=== PATIENT | female | born 1980 | race Two or more races ===

== ENCOUNTER 2016-09-27 13:52 | Emergency (ER) | payer OTHER ==
[~2016-09-27] VITALS: Ht 172.7 cm; Wt 95.3 kg
[~2016-09-27 13:52] MED LIST: DIAZ5TAB PO; ESCI10TA PO; GABA-585 PO; MECL25TA3 PO; METH4TAB2 PO; NAPR500T PO; PANT40TA5 PO; PENI500T PO; TIZA4TAB PO; TRAM-29 PO
[2016-09-27 14:53] LABS: BASO # 0.1 x10^3/uL (0.0-0.2); BASO % 1 % (0-3); EOS % 1 % (0-3); HEMATOCRIT 38.4 % (36.0-47.0); HEMOGLOBIN 12.8 g/dL (12.0-15.5); LYMPH # 2.8 x10^3/uL (1.0-4.8); LYMPH % 31 % (24-48); MEAN CORPUSCULAR HEMOGLOBIN 28 pg (25-35); MEAN CORPUSCULAR HGB CONC 33 g/dL (31-37); MEAN CORPUSCULAR VOLUME 85 fL (79-100); MONO % 7 % (0-9); NEUT % 61 % (31-73); PLATELET COUNT 345 x10^3/uL (140-400); RED BLOOD COUNT 4.51 x10^6/uL (3.50-5.40); RED CELL DISTRIBUTION WIDTH 14.3 % (11.5-14.5); WHITE BLOOD COUNT 9.1 x10^3/uL (4.0-11.0)
[2016-09-27 14:56] LABS: BILIRUBIN,URINE NEGATIVE (NEG); GLUCOSE,URINE NEGATIVE (NEG); NITRITE,URINE NEGATIVE (NEG); PROTEIN,URINE NEGATIVE (NEG-TRACE)
[2016-09-27 15:05] LABS: BACTERIA,URINE MANY /HPF (0-FEW); RBC,URINE 0 /HPF (0-2); SQUAMOUS EPITHELIAL CELL,UR MANY /LPF; WBC,URINE OCC /HPF (0-4)
[2016-09-27 15:18] LABS: ANION GAP 9 (6-14); BLOOD UREA NITROGEN 10 mg/dL (7-20); CARBON DIOXIDE 30 mmol/L (21-32); CHLORIDE 103 mmol/L (98-107); GFR 63.1; GLUCOSE 92 mg/dL (70-99); POTASSIUM 3.8 mmol/L (3.5-5.1); SODIUM 142 mmol/L (136-145)
[2016-09-27 15:24] LABS: ALBUMIN 3.3 g/dL (3.4-5.0); ALK PHOS 64 U/L (46-116); ALT (SGPT) 23 U/L (14-59); AST (SGOT) 18 U/L (15-37); DIRECT BILIRUBIN < 0.1 mg/dL (0.0-0.2); TOTAL BILIRUBIN 0.2 mg/dL (0.2-1.0); TOTAL PROTEIN 7.7 g/dL (6.4-8.2)
[2016-09-27] MEDS ORDERED: IV NORMAL SALINE 1000ML BAG 1,000 ML IV ONE (16:00)
[2016-09-27] MEDS ORDERED: KETOROLAC TROMETHAMINE 30 MG/ML INJ. IV ONE (16:15)
--- NOTE | 2016-09-27 16:49 | RAD ---
EXAM: Abdomen and pelvis CT without intravenous contrast. HISTORY: Right flank pain. TECHNIQUE: Computed tomographic images of the abdomen and pelvis were obtained without contrast. Multiplanar reformatting was performed. COMPARISON: 05/05/2016. FINDINGS: Evaluation of the lower thorax is unremarkable. No hepatic lesion is seen. The gallbladder is surgically absent. The pancreas, spleen and adrenal glands are unremarkable. There is no evidence of nephrolithiasis or obstructive uropathy. The bladder is unremarkable. The appendix is unremarkable. No abnormally thickened or dilated loop of bowel is seen. The uterus is surgically absent. There is a 4.8 cm right ovarian cyst. There are bilateral ovarian follicles. There is a trace amount of pelvic free fluid. There is a small fat-containing supraumbilical hernia. There are degenerative changes within the spine. IMPRESSION: 1. No evidence of nephrolithiasis or obstructive uropathy. 2. 4.8 cm right ovarian cyst. PQRS Compliance Statement: One or more of the following individualized dose reduction techniques were utilized for this examination: 1. Automated exposure control 2. Adjustment of the mA and/or kV according to patient size 3. Use of iterative reconstruction technique
--- NOTE | 2016-09-27 17:07 | PHYS DOC ---
Past Medical History Past Medical History: Anxiety, Depression, Other Additional Past Medical Histor: fibroids Past Surgical History: Cholecystectomy, , Hysterectomy, Tubal ligation Additional Past Surgical Histo: D&C Alcohol Use: None Drug Use: None Adult General Chief Complaint Chief Complaint: ABDOMINAL PAIN HPI HPI 36-year-old female presents with a several week history of right lower quadrant pain that radiates to her back. She denies any vaginal bleeding or discharge. She denies dyspareunia. She states her last couple days she's feels like the pain in her abdomen radiates to her leg. She denies any fever chills sweats nausea vomiting or diarrhea. She has not had any rectal bleeding. Review of Systems Review of Systems Constitutional: Denies fever or chills [] Eyes: Denies change in visual acuity, redness, or eye pain [] HENT: Denies nasal congestion or sore throat [] Respiratory: Denies cough or shortness of breath [] Cardiovascular: No additional information not addressed in HPI [] GI: Per history of present illness [] : Denies dysuria or hematuria [] Musculoskeletal: Denies back pain or joint pain [] Integument: Denies rash or skin lesions [] Neurologic: Denies headache, focal weakness or sensory changes [] Endocrine: Denies polyuria or polydipsia [] Current Medications Current Medications Current Medications Medications (Trade) Dose Ordered Sig/Bernie Start Time Stop Time Status Last Admin Dose Admin Ketorolac Tromethamine (Toradol) 30 mg 1X ONCE 09/27/16 16:15 09/27/16 16:16 DC 09/27/16 16:30 30 MG Sodium Chloride (Iv Sodium Chloride 0.9% 1000ml Bag) 1,000 ml @ 1,000 mls/hr 1X ONCE 09/27/16 16:00 09/27/16 16:59 DC 09/27/16 16:30 1,000 MLS/HR Allergies Allergies Allergies Coded Allergies Type Severity Reaction Last Updated Verified latex Allergy Intermediate Rash 07/05/14 Yes Physical Exam Physical Exam Constitutional: Well developed, well nourished, no acute distress, non-toxic appearance. [] HENT: Normocephalic, atraumatic, bilateral external ears normal, oropharynx moist, no oral exudates, nose normal. [] Eyes: PERRLA, EOMI, conjunctiva normal, no discharge. [] Neck: Normal range of motion, no tenderness, supple, no stridor. [] Cardiovascular:Heart rate regular rhythm, no murmur [] Lungs & Thorax: Bilateral breath sounds clear to auscultation [] Abdomen: Bowel sounds normal, soft, no tenderness, no masses, no pulsatile masses negative McBurney's, negative Cowan's. [] Skin: Warm, dry, no erythema, no rash. [] Back: No tenderness, no CVA tenderness. [] Extremities: No tenderness, no cyanosis, no clubbing, ROM intact, no edema. [] Neurologic: Alert and oriented X 3, normal motor function, normal sensory function, no focal deficits noted. [] Psychologic: Anxious] Current Patient Data Vital Signs Vital Signs Date Time Temp Pulse Resp B/P Pulse Ox O2 Delivery O2 Flow Rate FiO2 09/27/16 16:33 76 105/56 99 Room Air 09/27/16 13:59 98.7 16 98.7 Lab Values Laboratory Tests Test 09/27/16 14:10 09/27/16 14:40 Urine Collection Type Void Urine Color Yellow Urine Clarity Clear Urine pH 6.0 Urine Specific Grady 1.025 Urine Protein Negativemg/dL (NEG-TRACE) Urine Glucose (UA) Negativemg/dL (NEG) Urine Ketones (Stick) Negativemg/dL (NEG) Urine Blood Negative (NEG) Urine Nitrite Negative (NEG) Urine Bilirubin Negative (NEG) Urine Urobilinogen Dipstick 1.0mg/dL (0.2 mg/dL) Urine Leukocyte Esterase Negative (NEG) Urine RBC 0/HPF (0-2) Urine WBC Occ/HPF (0-4) Urine Squamous Epithelial Cells Many/LPF Urine Bacteria Many/HPF (0-FEW) Urine Mucus Marked/LPF White Blood Count 9.1x10^3/uL (4.0-11.0) Red Blood Count 4.51x10^6/uL (3.50-5.40) Hemoglobin 12.8g/dL (12.0-15.5) Hematocrit 38.4% (36.0-47.0) Mean Corpuscular Volume 85fL (79-100) Mean Corpuscular Hemoglobin 28pg (25-35) Mean Corpuscular Hemoglobin Concent 33g/dL (31-37) Red Cell Distribution Width 14.3% (11.5-14.5) Platelet Count 345x10^3/uL (140-400) Neutrophils (%) (Auto) 61% (31-73) Lymphocytes (%) (Auto) 31% (24-48) Monocytes (%) (Auto) 7% (0-9) Eosinophils (%) (Auto) 1% (0-3) Basophils (%) (Auto) 1% (0-3) Neutrophils # (Auto) 5.5x10^3uL (1.8-7.7) Lymphocytes # (Auto) 2.8x10^3/uL (1.0-4.8) Monocytes # (Auto) 0.6x10^3/uL (0.0-1.1) Eosinophils # (Auto) 0.1x10^3/uL (0.0-0.7) Basophils # (Auto) 0.1x10^3/uL (0.0-0.2) Sodium Level 142mmol/L (136-145) Potassium Level 3.8mmol/L (3.5-5.1) Chloride Level 103mmol/L (98-107) Carbon Dioxide Level 30mmol/L (21-32) Anion Gap 9 (6-14) Blood Urea Nitrogen 10mg/dL (7-20) Creatinine 1.0mg/dL (0.6-1.0) Estimated GFR (Cockcroft-Gault) 63.1 Glucose Level 92mg/dL (70-99) Calcium Level 9.0mg/dL (8.5-10.1) Total Bilirubin 0.2mg/dL (0.2-1.0) Direct Bilirubin < 0.1mg/dL (0.0-0.2) Aspartate Amino Transferase (AST) 18U/L (15-37) Alanine Aminotransferase (ALT) 23U/L (14-59) Alkaline Phosphatase 64U/L (46-116) Troponin I Quantitative < 0.017ng/mL (0.000-0.055) Total Protein 7.7g/dL (6.4-8.2) Albumin 3.3g/dL (3.4-5.0) L Lipase 76U/L (73-393) Laboratory Tests 09/27/16 14:40 Laboratory Tests 09/27/16 14:40 EKG EKG [] Radiology/Procedures Radiology/Procedures [] Impressions: PROCEDURE: ABDOMEN PELVIS WO CONTRAST EXAM: Abdomen and pelvis CT without intravenous contrast. HISTORY: Right flank pain. TECHNIQUE: Computed tomographic images of the abdomen and pelvis were obtained without contrast. Multiplanar reformatting was performed. COMPARISON: 05/05/2016. FINDINGS: Evaluation of the lower thorax is unremarkable. No hepatic lesion is seen. The gallbladder is surgically absent. The pancreas, spleen and adrenal glands are unremarkable. There is no evidence of nephrolithiasis or obstructive uropathy. The bladder is unremarkable. The appendix is unremarkable. No abnormally thickened or dilated loop of bowel is seen. The uterus is surgically absent. There is a 4.8 cm right ovarian cyst. There are bilateral ovarian follicles. There is a trace amount of pelvic free fluid. There is a small fat-containing supraumbilical hernia. There are degenerative changes within the spine. IMPRESSION: 1. No evidence of nephrolithiasis or obstructive uropathy. 2. 4.8 cm right ovarian cyst. Course & Med Decision Making Course & Med Decision Making Pertinent Labs and Imaging studies reviewed. (See chart for details) [ED course: Evaluation reveals a 36-year-old female with colicky right lower quadrant pain. CT scan was performed to rule out kidney stone. There was no kidney stone or ureteral stones seen but she did have an ovarian cyst which would likely be the cause of her symptoms. She was given IV fluids and pain medicine during her stay in the department which did help alleviate her symptoms. I discussed with her that the best follow-up is for her to see a hose operator. Dragon Disclaimer Dragon Disclaimer This electronic medical record was generated, in whole or in part, using a voice recognition dictation system. Departure Departure Impression: Primary Impression: Abdominal pain Additional Impression: Ovarian cyst Disposition: HOME, SELF-CARE Condition: IMPROVED Referrals: BEATRIZ FARRIS MD (PCP) WILFRED CASTELLANO MD Called Dr. Castellano's office to make a follow-up appointment in regards to your ovarian cyst Patient Instructions: Ovarian Cyst Additional Instructions: Thank you for allowing us to participate in your care today. Followup with your primary care physician in 3 days if your symptoms do not improve. Return to the emergency department you have any new or concerning findings. This should be evaluated by the primary care physician and any necessary consulting services for continued management within a few days after discharge. Return to emergency room if you have any new or concerning symptoms including but not limited to fever, chills, nausea, vomiting, intractable pain, any new rashes, chest pain, shortness of air, uncontrolled bleeding, difficulty breathing, and/or vision loss. You may have been prescribed medication that can change in your level of thinking and ability to operate machinery. These medications include hydrocodone and Ativan. Also, Benadryl has been known to do this as well. Be sure to check with your pharmacist and ask if the medications you've prescribed can affect your level of consciousness. I recommend not operating heavy machinery or driving while on medication such as these. Scripts Hydrocodone/Apap 5-325 ([place] 5-325 Tablet)1 Each Tablet1 Tab PO PRN Q6HRS PRN PAIN #20 TAB Prov:BASIA HUDDLESTON DO 09/27/16 Problem Qualifiers Primary Impression: Abdominal pain Abdominal location: right lower quadrant Qualified Code: R10.31 - Right lower quadrant pain Additional Impression: Ovarian cyst Laterality: right Qualified Code: N83.201 - Unspecified ovarian cyst, right side BASIA HUDDLESTON DO Sep 27, 2016 17:07
[2016-09-27] MEDS ORDERED: HYDR-971 PO (17:14)
[2016-09-27 17:22] VITALS: BP 111/64
== END 2016-09-27 17:24 | disposition home or self-care (01) ==
LOC: ER 13:52
DX: N83.201 Unspecified ovarian cyst, right side (principal); R10.31 Right lower quadrant pain; Z90.710 Acquired absence of both cervix and uterus; Z90.49 Acquired absence of other specified parts of digestive tract; Z98.51 Tubal ligation status; Z98.890 Other specified postprocedural states; Z87.19 Personal history of other diseases of the digestive system; Z91.040 Latex allergy status
CPT/HCPCS: 36415; 74176; 80048; 80076; 81001; 83690; 84484; 85027; 87086; 96361; 96374; 99285; J1885; J7030

== ENCOUNTER 2016-11-05 01:12 | Inpatient (IN) | payer OTHER ==
[~2016-11-05] VITALS: Ht 172.7 cm; Wt 95.3 kg
[~2016-11-05 01:12] MED LIST changes: +HYDR-971 PO
[2016-11-05] MEDS ORDERED: ACETAMINOPHEN 325 MG TABLET. PO PRN (03:00)
[2016-11-05] MEDS ORDERED: ONDANSETRON PF 4 MG/2 ML VIAL. IV PRN (03:00)
[2016-11-05 03:25] VITALS: BP 105/40
[2016-11-05] MEDS ORDERED: IV NORMAL SALINE 1000ML BAG 1,000 ML IV SCH (04:30)
[2016-11-05] MEDS: fentaNYL PF VIAL 100 MCG/2 ML VIAL IV PRN ×3 (04:57→11:34)
[2016-11-05] MEDS ORDERED: PIP/TAZO PER PHARMACY MC PRN (05:00)
[2016-11-05] MEDS: PIPERACILLIN/TAZOBACTAM 3.375 GM in IV NORMAL SALINE 50ML 50 ML IV SCH ×2 (06:23→09:54)
[2016-11-05 07:30] VITALS: BP 105/56
--- NOTE | 2016-11-05 08:58 | PDOC1 ---
REI GILMAN CRAFT SUPERINTENDENT 11/05/16 0858: HISTORY AND PHYSICAL Chief Complaint Chief Complaint This 36 year old female has been admitted with a chief complaint of R lower jaw/tooth pain. She was seen in the ED at [facility] with c /o chills, sweats, R jaw pain worsening over last 2 days, and n/v. She has a h/ o R tooth pain onset 2 years ago. The tooth broke off at the gum line and she has been treated periodically for infected tooth. She did not have dental/ medical insurance and could not obtain treatment due to finances. She also reports R lower leg pain starting with R hip radiating down leg. She fell at a job in Aug, quit the job and has noted R hip pain radiating down the leg. A CT of her R mandible in ED at [place] was positive for osteomyelitis amn caries of the 3rd molar. The tooth is fractured and only the lower part of the tooth is present. It is flush with the gum line. BC were obtained. T97.9 and WBC 8.9. She was dosed with Vancomycin and Zosyn with transfer to [facility] for ongoing treatment. . Past Medical History CENTRAL NERVOUS SYSTEM: Other Psych: Anxiety Musculoskeletal: Other Past Surgical History Past Surgical History: Cholecystectomy, , Hysterectomy, Other (D&C ) Past Family History Family History: Coronary Artery Disease, Diabetes, Hypertension, Other (CHF) Past Social History PSH neg ETOH, smoke or illicit drugs Review of Symptoms Review of Symptoms A 14 point ROS was completed with the following noted as positive: R jaw pain, n /v, chills. R hip pain radiating down R leg Other systems reviewed and negative. Medications Medications reviewed and reconciled Allergy Allergies Coded Allergies Type Severity Reaction Last Updated Verified hydrocodone Allergy Intermediate Itching 11/05/16 Yes latex Allergy Intermediate Rash 07/05/14 Yes morphine Adverse Reaction Severe Chest Pain 11/05/16 Yes Physical Exam Physical Exam General appearance - alert, ill appearing, and in mild distress Mental Status - alert, oriented to person, place, and time, affect appropriate to mood Head - normal Mouth - R gum swollen, molar fractured to gum line, + dental caries Chest - clear to auscultation, no wheezes, rales or rhonchi, symmetric air entry Heart - S1 and S2 normal Abdomen - soft, nontender, nondistended, BS+ Neurological - no acute focal neurological deficit noted Musculoskeletal - no muscular tenderness noted. R hip tenderness Extremities - no pedal edema Skin - warm and dry VTE Prophylaxis Ordered VTE Prophylaxis Devices: Yes VTE Pharmacological Prophylaxi: No Plan Plan Impression: 1. osteomyelitis R mandible with 3rd molar dental caries 2. R hip pain radiating down leg 3. anxiety 4. CKD II 5. hypokalemia PLAN: R mandibular osteomyelitis Zosyn/vanc ID consult check sed rate R hip pain obtain LS xray/R hip xray pain medication DVT/GI prophylaxis SCD/ASHA Pepcid IV For more details regarding further plans, please refer to the orders. No ENT available here. Dr. Davis ENT at [facility] (in network). Anticipate transfer with d/c orders/meds initiated. Dr. Farris will need to contact [facility] [phone] for ok to transfer. BEATRIZ FARRIS MD 11/05/16 1018: HISTORY AND PHYSICAL Plan Plan The patient was seen and examined by me. Chart reviewed and plan of care formulated. Discussed with, reviewed and agree with TURNING MACHINE SET UP OPERATOR's notes, plan of care and orders with modifications as necessary. For more details regarding further plans, please refer to the orders. D/w . Oral surgeons available here.No need to transfer patient. Consult . REI GILMAN APRN November 05, 2016 08:58 BEATRIZ FARRIS MD November 05, 2016 10:18
--- NOTE | 2016-11-05 09:14 | DISCH ---
DISCHARGE INSTRUCTIONS Condition on Discharge Condition on Discharge: Stable Activity After Discharge Activity Instructions for Disc: Activity as tolerated Diet after Discharge Diet Texture: Nothing by Mouth Checks after Discharge DC Comment: VS per routine Follow-Up Follow up with: Dr. Estes 3-5 days after discharge from hospital REI GILMAN APRN November 05, 2016 09:14
[2016-11-05] MEDS ORDERED: ACETAMINOPHEN 650 MG/20.3 ML SOLUTION. PO PRN (09:15)
--- NOTE | 2016-11-05 09:59 | PDOC ---
Infectious Disease Note Vital Sign Vital Signs Vital Signs Date Time Temp Pulse Resp B/P (MAP) Pulse Ox O2 Delivery O2 Flow Rate FiO2 11/05/16 07:44 14 Room Air 11/05/16 07:30 97.9 66 105/56 (72) 95 97.9 Objective Assessment Rt molar infection with mandibular osteomyelitis Plan Plan of Care unasyn maxillo facial surgery d/w PRICILA Max MD November 05, 2016 09:59
[2016-11-05] MEDS ORDERED: FAMOTIDINE 20 MG/2 ML VIAL IVP SCH (10:00)
[2016-11-05 10:11] LABS: BASO % 1 % (0-3); EOS % 1 % (0-3); HEMATOCRIT 35.1 % (36.0-47.0); HEMOGLOBIN 11.8 g/dL (12.0-15.5); LYMPH # 1.4 x10^3/uL (1.0-4.8); LYMPH % 29 % (24-48); MEAN CORPUSCULAR HEMOGLOBIN 29 pg (25-35); MEAN CORPUSCULAR HGB CONC 34 g/dL (31-37); MEAN CORPUSCULAR VOLUME 86 fL (79-100); MONO % 6 % (0-9); NEUT % 64 % (31-73); PLATELET COUNT 284 x10^3/uL (140-400); RED CELL DISTRIBUTION WIDTH 15.2 % (11.5-14.5); WHITE BLOOD COUNT 4.7 x10^3/uL (4.0-11.0)
[2016-11-05 10:32] LABS: ALBUMIN 2.7 g/dL (3.4-5.0); ALBUMIN/GLOBULIN RATIO 0.8 (1.0-1.7); CALCIUM 7.8 mg/dL (8.5-10.1); CREATININE 0.9 mg/dL (0.6-1.0); GFR 71.3; POTASSIUM 3.7 mmol/L (3.5-5.1); TOTAL BILIRUBIN 0.6 mg/dL (0.2-1.0); TOTAL PROTEIN 6.3 g/dL (6.4-8.2)
[2016-11-05 11:00] VITALS: BP 117/68
[2016-11-05] MEDS ORDERED: AMPICILLIN/SULBACTAM 3 GM in IV NORMAL SALINE 100ML 100 ML IV SCH (11:00)
[2016-11-05] MEDS ORDERED: ACET500T68 PO (11:45)
--- NOTE | 2016-11-05 12:50 | CONS ---
DATE OF CONSULTATION: 11/05/2016 REASON FOR CONSULTATION: To evaluate osteomyelitis of the jaw. CHIEF COMPLAINT: Toothache lower right that has been like pain off and on for four years, got really bad two days ago and was seen at [facility] and transferred to [facility]. The evaluation shows gross decay of tooth #32 and #19. There is no gross edema. Maximal size of opening was about 45 mm, which was normal. No floor of mouth edema. Uvula; midline. Trachea; midline. No gross signs of infection. ASSESSMENT AND PLAN: Gross decay questionable osteomyelitis of the right jaw, per a CT scan radiologist. The patient will follow up to office on Tuesday11/08/2016 for IV sedation and removal of tooth #32 also for evaluation of the osteomyelitis per radiologist. SHEILA ALDRIDGE DDS DR: FRANCESCO/anthony JOB#: [id number] / [id number]
--- NOTE | 2016-11-06 00:47 | CONS ---
DATE OF CONSULTATION: 11/05/2016 REQUESTING PHYSICIAN: Dr. Estes. REASON FOR CONSULTATION: Mandibular osteomyelitis. HISTORY OF PRESENT ILLNESS: This is a 36-year-old female, who was admitted to [place] and then transferred here for jaw pain. The patient says this started 2 days ago. The patient denied any fever, chills, nausea, vomiting or diarrhea. The patient has had off and on pain for a long time. ____ every time it would get better, hence she has not seen any dentist or any treatment. The patient had a CAT scan of the maxillofacial done which showed 3 cm radiolucent lesion of posterior right side of the mandible including the ____ consistent with osteomyelitis and with the dental carries of the lower right third molar. The patient is started on Zosyn and consult has been requested. The patient denies any chest pain, shortness of breath, abdominal pain, headache, visual symptoms, nausea, vomiting, diarrhea or urinary symptoms. PAST MEDICAL HISTORY: Essentially no ongoing medical problems. PAST SURGICAL HISTORY: The patient has had cholecystectomy, and hysterectomy done in the past. SOCIAL HISTORY: Negative for smoking, alcohol use or drug use. ALLERGIES: LISTED ALLERGIC TO HYDROCODONE AND MORPHINE. REVIEW OF SYSTEMS: As per HPI, all other systems reviewed are negative. CURRENT MEDICATIONS: Reviewed. The patient is on Zosyn. PHYSICAL EXAMINATION: GENERAL: Alert, oriented female, not in distress. VITAL SIGNS: Stable, afebrile. HEENT: NAD. NECK: Supple, no JVP, no lymphadenopathy. LUNGS: Clear. HEART: S1, S2 regular. ABDOMEN: Benign. EXTREMITIES: No edema, cyanosis. SKIN: Unremarkable. Mouth examination, the right third molar has dental caries, it appears to be almost destroyed. There is no mandibular swelling or tenderness palpable. NEUROLOGIC: The patient is neurologically intact. LABORATORY DATA: White count is normal. BUN and creatinine is normal. Liver functions are normal. Urinalysis unremarkable. Evidently blood culture was done at [place] that will follow. IMPRESSION: 1. Right third molar dental caries. 2. Mandibular osteomyelitis. RECOMMENDATIONS: I would change Zosyn to Unasyn, supportive care, Maxillofacial Surgery consult is pending and discussion with Dr. Estes done. Thank you very much, Dr. Estes, for giving me the opportunity to participate in this patient's care. PRICILA JACKSON MD DR: Lowell JOB#: [id number] / [id number]
--- NOTE | 2016-11-11 15:01 | PDOC3 ---
IM DISCHARGE SUMMARY Date of Admission Date of Admission Date of Admission: November 05, 2016 at 02:02 Date of Discharge Date of Discharge 11/06/16 Primary Diagnosis Primary Diagnosis Impression: 1. osteomyelitis R mandible with 3rd molar dental caries 2. R hip pain radiating down leg 3. anxiety 4. CKD II 5. hypokalemia Problems: Consults Consults Shabbir Oneal MD, Dr. Procedures Procedures None Labs Labs See EMR Brief hospital course Brief hospital course This 36 year old female who presented with R mandibular osteomyelitis was admitted. The following is a summary of her treatment plan: PLAN: R mandibular osteomyelitis Zosyn/vanc ID consult check sed rate Oral surgeon consult: okay to discharge home with oral antibiotics, f/u in office 11/08 for tooth extraction and radiology R hip pain obtain LS xray/R hip xray pain medication Discharge prior to hip xray -f/u out patient DVT/GI prophylaxis SCD/ASHA Pepcid IV For more details regarding the past history, family history, social history, surgical history and other details, please refer to History and Physical. She is being discharged home. Please see the discharge orders. Medications Medications reviewed and reconciled for discharge. Allergy Allergies Coded Allergies Type Severity Reaction Last Updated Verified hydrocodone Allergy Intermediate Itching 11/05/16 Yes latex Allergy Intermediate Rash 07/05/14 Yes morphine Adverse Reaction Severe Chest Pain 11/05/[address] Estes in 5-7 days. DISPOSITION: Home Comments Discharge Management - 35 minutes. For other details please refer to discharge instructions REI GILMAN APRN November 11, 2016 15:01
== END 2016-11-05 12:00 | disposition home or self-care (01) | DRG 159 ==
LOC: 6 SOUTH 02:02
PROVIDERS: ADMIT Internal Medicine; ATTEND Internal Medicine
DX: M27.2 Inflammatory conditions of jaws (principal); E87.6 Hypokalemia; F41.9 Anxiety disorder, unspecified; K02.9 Dental caries, unspecified; K04.7 Periapical abscess without sinus; N18.2 Chronic kidney disease, stage 2 (mild); Z82.49 Family history of ischemic heart disease and other diseases of the circulatory system; Z83.3 Family history of diabetes mellitus; Z90.49 Acquired absence of other specified parts of digestive tract; Z90.710 Acquired absence of both cervix and uterus
CPT/HCPCS: 36415; 80053; 84443; 85027; 85651; J0295; J2543; J3010; J7030; S0028

== ENCOUNTER → 2017-02-03 | Outpatient (CLI) | payer OTHER ==
[~2017-02-03] MED LIST changes: +ACET500T68 PO; -ESCI10TA PO; +ESCITALOPRAM OX10 MG PO; -TRAM-29 PO; +TRAM-48 PO
[2017-02-03 07:36] LABS: BASO # 0.1 x10^3/uL (0.0-0.2); BASO % 1 % (0-3); EOS % 1 % (0-3); HEMATOCRIT 38.8 % (36.0-47.0); HEMOGLOBIN 12.6 g/dL (12.0-15.5); LYMPH # 2.6 x10^3/uL (1.0-4.8); LYMPH % 26 % (24-48); MEAN CORPUSCULAR HEMOGLOBIN 29 pg (25-35); MEAN CORPUSCULAR HGB CONC 33 g/dL (31-37); MEAN CORPUSCULAR VOLUME 88 fL (79-100); MONO % 7 % (0-9); NEUT % 65 % (31-73); PLATELET COUNT 352 x10^3/uL (140-400); RED BLOOD COUNT 4.41 x10^6/uL (3.50-5.40); RED CELL DISTRIBUTION WIDTH 14.2 % (11.5-14.5); WHITE BLOOD COUNT 9.8 x10^3/uL (4.0-11.0)
[2017-02-03 07:51] LABS: ALBUMIN 3.2 g/dL (3.4-5.0); ALBUMIN/GLOBULIN RATIO 0.7 (1.0-1.7); CALCIUM 8.6 mg/dL (8.5-10.1); CREATININE 0.9 mg/dL (0.6-1.0); GFR 71.3; POTASSIUM 3.3 mmol/L (3.5-5.1); TOTAL BILIRUBIN 0.3 mg/dL (0.2-1.0); TOTAL PROTEIN 7.5 g/dL (6.4-8.2)
[2017-02-03 07:52] LABS: CHOLESTEROL/HDL RATIO 4.1
[2017-02-03 09:48] LABS: FOLATE 12.8 ng/ml (3.2-20.0)
[2017-02-04 23:12] LABS: VITAMIN D25(OH)TOTAL 25.8 ng/mL (30.0-100.0)
== END | disposition home or self-care (01) ==
LOC: LAB 07:12
PROVIDERS: ATTEND Nurse Practitioner
DX: Z00.01 Encounter for general adult medical examination with abnormal findings (principal); L65.9 Nonscarring hair loss, unspecified; R53.83 Other fatigue
CPT/HCPCS: 36415; 80053; 80061; 82306; 82607; 82746; 83036; 84443; 85027

== ENCOUNTER → 2017-02-04 | Outpatient (CLI) | payer OTHER ==
[2017-02-04 14:08] LABS: BILIRUBIN,URINE NEGATIVE (NEG); GLUCOSE,URINE NEGATIVE (NEG); NITRITE,URINE NEGATIVE (NEG); PROTEIN,URINE NEGATIVE (NEG-TRACE); UROBILINOGEN,URINE 0.2 mg/dL (0.2 mg/dL)
[2017-02-04 14:15] LABS: BACTERIA,URINE MODERATE /HPF (0-FEW); RBC,URINE 0 /HPF (0-2); SQUAMOUS EPITHELIAL CELL,UR MOD /LPF; TRICHOMONAS,URINE PRESENT; WBC,URINE >40 /HPF (0-4)
== END | disposition home or self-care (01) ==
LOC: LAB 13:29
PROVIDERS: ATTEND Internal Medicine
DX: R30.0 Dysuria (principal)
CPT/HCPCS: 81001; 87086

== ENCOUNTER 2017-02-08 12:50 | Emergency (ER) | payer OTHER ==
[~2017-02-08] VITALS: Ht 172.7 cm; Wt 97.5 kg
[2017-02-08 13:00] VITALS: BP 126/69
--- NOTE | 2017-02-08 13:29 | PHYS DOC ---
Past Medical History Past Medical History: Anxiety, Depression, Other Additional Past Medical Histor: fibroids Past Surgical History: Cholecystectomy, , Hysterectomy, Tubal ligation Additional Past Surgical Histo: D&C Alcohol Use: None Drug Use: None Adult General Chief Complaint Chief Complaint: NEAR SYNCOPE HPI HPI 36-year-old female presenting to the emergency department today with lightheadedness and dizziness. She reports not drinking a lot recently. She reports lightheadedness worse when she stands up improved with rest. She denies any vision changes. She also describes a tingling in both hands bilaterally that happened today when she felt flushed and lightheaded and feels like she most passed out. She denies any palpitations but has had intermittent chest pain but reports the chest pain is been present for more than 2 or 3 years and is a chronic condition. Patient has had a hysterectomy in the past. Review of systems is negative for fevers chills nausea vomiting diarrhea constipation. All other review of systems is negative unless otherwise noted in history of present illness. ED course: 36-year-old female presenting with lightheadedness and presyncopal episode. Vital signs unremarkable. EKG unremarkable. I had the patient stand up and she reported feeling mildly lightheaded. The patient appears to be orthostatic. I recommended the patient orally rehydrate take the day off and follow-up with her doctor the next day or 2. The patient was then discharged home in stable condition to follow up with their primary care physician over the next 2-3 days. They were to return if their symptoms worsened or if they were concerned for any reason. [id number] discharge instructions and return precautions were given. Patient's questions were answered to their satisfaction. Patient is comfortable plan. Review of Systems Review of Systems SEE ABOVE. Allergies Allergies Allergies Coded Allergies Type Severity Reaction Last Updated Verified hydrocodone Allergy Intermediate Itching 11/05/16 Yes latex Allergy Intermediate Rash 07/05/14 Yes morphine Adverse Reaction Severe Chest Pain 11/05/16 Yes Physical Exam Physical Exam SEE ABOVE Constitutional: Well developed, well nourished, no acute distress, non-toxic appearance. [] HENT: Normocephalic, atraumatic, bilateral external ears normal, oropharynx moist, no oral exudates, nose normal. [] Eyes: PERRLA, EOMI, conjunctiva normal, no discharge. [] Neck: Normal range of motion, no tenderness, supple, no stridor. [] Cardiovascular:Heart rate regular rhythm, no murmur [] Lungs & Thorax: Bilateral breath sounds clear to auscultation [] Abdomen: Bowel sounds normal, soft, no tenderness, no masses, no pulsatile masses. [] Skin: Warm, dry, no erythema, no rash. [] Back: No tenderness, no CVA tenderness. [] Extremities: No tenderness, no cyanosis, no clubbing, ROM intact, no edema. [] Neurologic: Mental status: Awake oriented and alert x3 Cranial nerves: Extraocular movements intact, eyebrows natalia bilaterally smile symmetric, uvula elevation, shoulder shrug intact, tongue protrusion normal DTRs: 2+ Sensation: equal and normal in all extremities Strength: 5/5 in upper and lower extremities bilaterally Psychologic: Affect normal, judgement normal, mood normal. [] Current Patient Data Vital Signs Vital Signs Date Time Temp Pulse Resp B/P (MAP) Pulse Ox O2 Delivery O2 Flow Rate FiO2 02/08/17 13:00 98.4 79 18 126/69 (88) 99 Room Air 98.4 EKG EKG [] Radiology/Procedures Radiology/Procedures [] Course & Med Decision Making Course & Med Decision Making Pertinent Labs and Imaging studies reviewed. (See chart for details) [] Dragon Disclaimer Dragon Disclaimer This electronic medical record was generated, in whole or in part, using a voice recognition dictation system. Departure Departure Impression: Primary Impression: Dizziness Disposition: 01 HOME, SELF-CARE Condition: STABLE Referrals: BEATRIZ FARRIS MD (PCP) Patient Instructions: Dizziness, [id number] Additional Instructions: Thank you for allowing us to participate in your care today. Followup with your primary care physician in 3 days if your symptoms do not improve. Call your Primary Doctor tomorrow and inform them of your visit today. If you do not have a primary care provider you can ask for a list of our primary care providers. Return to the emergency department you have any new or concerning findings. This should be evaluated by the primary care physician and any necessary consulting services for continued management within a few days after discharge. Return to emergency room if you have any new or concerning symptoms including but not limited to fever, chills, nausea, vomiting, intractable pain, any new rashes, chest pain, shortness of air, uncontrolled bleeding, difficulty breathing, and/or vision loss. ABRAHAM LEE MD Feb 08, 2017 13:29
--- NOTE | 2017-02-08 15:40 | EKG ---
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 RI6.01 Unconfirmed report Compared to ECG 07/09/2016 10:45:26 No significant changes Electronically Signed On 02-14-2017 9:31:38 CDT by Anuel Dai
== END 2017-02-08 13:37 | disposition home or self-care (01) ==
LOC: ER 12:50
DX: R42 Dizziness and giddiness (principal); R20.2 Paresthesia of skin; R07.89 Other chest pain; F32.9 Major depressive disorder, single episode, unspecified; Z91.040 Latex allergy status; Z90.710 Acquired absence of both cervix and uterus; Z90.49 Acquired absence of other specified parts of digestive tract; Z98.890 Other specified postprocedural states; Z98.51 Tubal ligation status; Z88.5 Allergy status to narcotic agent; F41.9 Anxiety disorder, unspecified
CPT/HCPCS: 93005; 99284-25

== ENCOUNTER → 2017-02-24 | Outpatient (CLI) | payer OTHER ==
[2017-02-08 13:00] VITALS: BP 126/69
[2017-02-24 11:58] LABS: CALCIUM 8.5 mg/dL (8.5-10.1); CREATININE 0.8 mg/dL (0.6-1.0); GFR 81.6; POTASSIUM 4.3 mmol/L (3.5-5.1)
== END | disposition home or self-care (01) ==
LOC: LAB 11:24
PROVIDERS: ATTEND Nurse Practitioner
DX: E87.6 Hypokalemia (principal)
CPT/HCPCS: 36415; 80048

== ENCOUNTER → 2017-03-21 | Outpatient (CLI) | payer OTHER ==
--- NOTE | 2017-03-22 15:41 | SLEEP ---
DATE OF STUDY: 03/21/2017 ATTENDING PHYSICIAN: Beatriz Estes MD The patient is a 36-year-old who weighs 217 pounds with a BMI of 33. The patient's Hessmer score was 11. Sleep study was performed at [facility]. During the night study, the patient spent 421 minutes in bed and slept for 398 minutes with an excellent sleep efficiency of 95%. Sleep latency was 12 minutes with a REM latency of 175 minutes. Overall, sleep architecture showed normal stage I sleep, increased stage II sleep, increased slow wave and reduced REM sleep. During the night study, the patient had no obstructive apneas, no central apneas; there were 2 mixed apneas and 3 hypopneas. The patient's apnea-hypopnea index for the entire night was only 1 per hour. Supine index 1 per hour and a REM index of 4 per hour. Review of nocturnal oximetry study revealed a mean oxygen saturation of 99% with the lowest of 90%. EKG monitoring revealed normal sinus rhythm, average heart rate was 75 beats per minute, no arrhythmias were observed. Periodic limb movements in sleep were seen at index of 14 per hour and 3 per hour caused EEG arousals. Due to low apnea-hypopnea index, the patient did not meet the split-night criteria for CPAP initiation. IMPRESSION: 1. No clinically significant sleep-disordered breathing. 2. No clinically significant nocturnal hypoxia. 3. Mild periodic limb movements in sleep without any significant EEG arousals. This does not need to be treated unless the patient has symptoms of restless legs during the day. RECOMMENDATIONS: 1. The patient did not meet the split-night criteria for CPAP initiation due to very low apnea-hypopnea index. 2. The patient's mild subjective hypersomnia could be related to the effect of medications. The patient uses oxycodone on a p.r.n. basis. 3. Weight loss is advised. 4. Avoid central nervous system depressants. 5. Caution regarding driving until the patient's subjective hypersomnia is resolved. 6. If clinical suspicion for narcolepsy is high, then the patient would require multiple sleep latency tests. CESAR PANTOJA MD DR: BRENNAN/anthony JOB#: [id number] / [id number] BEATRIZ Johns MD
== END | disposition home or self-care (01) ==
LOC: SLPLAB 18:01
PROVIDERS: ATTEND Internal Medicine
DX: G47.33 Obstructive sleep apnea (adult) (pediatric) (principal)
CPT/HCPCS: 95810

== ENCOUNTER 2017-04-03 18:23 | Emergency (ER) | payer OTHER ==
[~2017-04-03] VITALS: Ht 172.7 cm; Wt 97.5 kg
[2017-04-03 18:54] VITALS: BP 125/69
[2017-04-03] MEDS ORDERED: OXYC1TAB7 PO (19:27)
[2017-04-03] MEDS ORDERED: AMOX875T PO (19:27)
--- NOTE | 2017-04-03 19:27 | PHYS DOC ---
Past Medical History Past Medical History: Anxiety, Depression, Other Additional Past Medical Histor: fibroids Past Surgical History: Cholecystectomy, , Hysterectomy, Tubal ligation Additional Past Surgical Histo: D&C Alcohol Use: None Drug Use: None Adult General Chief Complaint Chief Complaint: DENTAL PROBLEM HPI HPI Patient is a 36 year old female who presents with moderate right lower jaw dental pain that began 2 days ago. Patient denies any fever or trismus. She states she had major surgery done on November 2016 for removal of a dental abscess by an oral surgeon at [facility]. Patient is scared she could be developing an early abscess. Patient denies any drainage from the area. Review of Systems Review of Systems Constitutional: Denies fever or chills [] HENT: moderate right lower jaw dental pain Respiratory: Denies cough or shortness of breath [] Cardiovascular: No additional information not addressed in HPI [] Musculoskeletal: Denies back pain or joint pain [] Integument: Denies rash or skin lesions [] Neurologic: Denies headache, focal weakness or sensory changes [] Allergies Allergies Allergies Coded Allergies Type Severity Reaction Last Updated Verified hydrocodone Allergy Intermediate Itching 11/05/16 Yes latex Allergy Intermediate Rash 07/05/14 Yes morphine Adverse Reaction Severe Chest Pain 11/05/16 Yes Physical Exam Physical Exam Constitutional: Well developed, well nourished, no acute distress, non-toxic appearance. [] HENT: Normocephalic, atraumatic, bilateral external ears normal, oropharynx moist, no oral exudates, nose normal. [] Surgical scar noted on the right cheek. There is slight swelling on the exterior aspect of the right lower cheek with tenderness on the right lower gum. Patient is missing most of her teeth on the right lower gum. Cardiovascular:Heart rate regular rhythm, no murmur [] Lungs & Thorax: Bilateral breath sounds clear to auscultation [] Skin: Warm, dry, no erythema, no rash. [] Back: No tenderness, no CVA tenderness. [] Extremities: No tenderness, no cyanosis, no clubbing, ROM intact, no edema. [] Neurologic: Alert and oriented X 3, normal motor function, normal sensory function, no focal deficits noted. [] Psychologic: Affect normal, judgement normal, mood normal. [] Current Patient Data Vital Signs Vital Signs Date Time Temp Pulse Resp B/P (MAP) Pulse Ox O2 Delivery O2 Flow Rate FiO2 04/03/17 18:54 98.5 78 16 99 Room Air 98.5 EKG EKG [] Radiology/Procedures Radiology/Procedures [] Course & Med Decision Making Course & Med Decision Making Pertinent Labs and Imaging studies reviewed. (See chart for details) Patient is in the ED with dental pain. She has history of dental abscess. She has swelling on her right lower gum suspicious of development dental infection, no obvious abscess noted. She was put on amoxicillin for 10 days. She has a dentist. I recommended she contact the dentist tomorrow morning and set up follow-up appointment. Dragon Disclaimer Dragon Disclaimer This electronic medical record was generated, in whole or in part, using a voice recognition dictation system. Departure Departure Impression: Primary Impression: Dentalgia Additional Impression: Abscess, dental Disposition: 01 HOME, SELF-CARE Condition: STABLE Referrals: BEATRIZ FARRIS MD (PCP) Follow-up with your dentist tomorrow Patient Instructions: Dental Pain Additional Instructions: You were seen with dental pain. Please complete your antibiotics. Contact your dentist and set up a follow-up appointment as soon as possible. Scripts Amoxicillin (AMOXICILLIN) 875 Mg Tablet 1 TAB PO BID, #20 TAB Prov: YOLANDA JONES APRN 04/03/17 Oxycodone Hcl/Acetaminophen (OXYCODONE-ACETAMINOPHEN 5-325) 1 Each Tablet 1 EACH PO PRN Q6HRS Y for PAIN, #8 TAB 0 Refills Prov: YOLANDA JONES APRN 04/03/17 Problem Qualifiers YOLANDA JONES APRN Apr 03, 2017 19:27
== END 2017-04-03 19:42 | disposition home or self-care (01) ==
LOC: ER 18:23
DX: K04.7 Periapical abscess without sinus (principal); Z91.040 Latex allergy status; Z88.5 Allergy status to narcotic agent
CPT/HCPCS: 99283

== ENCOUNTER 2017-04-14 19:57 | Emergency (ER) | payer OTHER ==
[~2017-04-14] VITALS: Ht 172.7 cm; Wt 99.8 kg
[~2017-04-14 19:57] MED LIST changes: +AMOX875T PO; +OXYC1TAB7 PO
[2017-04-14 20:20] VITALS: BP 118/56
[2017-04-14 21:17] LABS: BASO # 0.1 x10^3/uL (0.0-0.2); BASO % 1 % (0-3); EOS % 2 % (0-3); HEMATOCRIT 37.9 % (36.0-47.0); HEMOGLOBIN 12.6 g/dL (12.0-15.5); LYMPH # 3.6 x10^3/uL (1.0-4.8); LYMPH % 37 % (24-48); MEAN CORPUSCULAR HEMOGLOBIN 28 pg (25-35); MEAN CORPUSCULAR HGB CONC 33 g/dL (31-37); MEAN CORPUSCULAR VOLUME 85 fL (79-100); MONO % 7 % (0-9); NEUT % 54 % (31-73); PLATELET COUNT 333 x10^3/uL (140-400); RED BLOOD COUNT 4.44 x10^6/uL (3.50-5.40); RED CELL DISTRIBUTION WIDTH 14.3 % (11.5-14.5); WHITE BLOOD COUNT 9.9 x10^3/uL (4.0-11.0)
[2017-04-14 21:30] LABS: CALCIUM 8.5 mg/dL (8.5-10.1); CREATININE 0.8 mg/dL (0.6-1.0); GFR 81.6; POTASSIUM 3.6 mmol/L (3.5-5.1)
--- NOTE | 2017-04-14 21:33 | PHYS DOC ---
Past Medical History Past Medical History: Anxiety, Depression, Other Additional Past Medical Histor: fibroids Past Surgical History: Cholecystectomy, , Hysterectomy, Tubal ligation Additional Past Surgical Histo: D&C Alcohol Use: None Drug Use: None Adult General Chief Complaint Chief Complaint: CHEST PAIN HPI HPI 36-year-old female presenting to the emergency department today with tingling on the left side of her face and left upper extremity this started around 7:30 PM. She also has chest pain that is sharp pleuritic pain that is deep inspiration. She denies unilateral leg swelling hemoptysis or personal history of blood clotting disorder. She denies recent surgery or immobilization. She denies having history of high blood pressure high cholesterol or diabetes. She has a history of having a hysterectomy and denies being . Review of systems is negative for abdominal pain nausea vomiting diaphoresis fevers or chills. All other review of systems is negative unless otherwise noted in history of present illness. ED course: 36-year-old female presenting to the emergency department with chest pain and numbness in the left side of the face and left upper extremity. She denies any weakness. Neurologic exam below. Head CT obtained along with EKG and blood work. CT of the head unremarkable. MRI of the head unremarkable. EKG and blood work negative. Negative workup. I discussed the case with Dr. flores our neurologist. The patient was subsequent discharged home. The patient was then discharged home in stable condition to follow up with their primary care physician over the next 2-3 days. They were to return if their symptoms worsened or if they were concerned for any reason. [id number] discharge instructions and return precautions were given. Patient's questions were answered to their satisfaction. Patient is comfortable plan. Review of Systems Review of Systems SEE ABOVE. Current Medications Current Medications Current Medications Medications (Trade) Dose Ordered Sig/Bernie Start Time Stop Time Status Last Admin Dose Admin Diphenhydramine HCl (Benadryl) 50 mg 1X ONCE 04/14/17 22:00 04/14/17 22:01 DC 04/14/17 21:59 50 MG Metoclopramide HCl (Reglan) 20 mg 1X ONCE 04/14/17 22:00 04/14/17 22:01 DC 04/14/17 21:59 20 MG Sodium Chloride 1,000 ml @ 1,000 mls/hr 1X ONCE 04/14/17 22:00 04/14/17 22:59 DC 04/14/17 22:00 1,000 MLS/HR Allergies Allergies Allergies Coded Allergies Type Severity Reaction Last Updated Verified hydrocodone Allergy Intermediate Itching 11/05/16 Yes latex Allergy Intermediate Rash 07/05/14 Yes morphine Adverse Reaction Severe Chest Pain 11/05/16 Yes Physical Exam Physical Exam SEE ABOVE Constitutional: Well developed, well nourished, no acute distress, non-toxic appearance. [] HENT: Normocephalic, atraumatic, bilateral external ears normal, oropharynx moist, no oral exudates, nose normal. Eyes: PERRLA, EOMI, conjunctiva normal, no discharge. [] Neck: Normal range of motion, no tenderness, supple, no stridor. Cardiovascular:Heart rate regular rhythm, no murmur [] Lungs & Thorax: Bilateral breath sounds clear to auscultation [] Abdomen: Bowel sounds normal, soft, no tenderness, no masses, no pulsatile masses. Skin: Warm, dry, no erythema, no rash. [] Back: No tenderness, no CVA tenderness. Extremities: No tenderness, no cyanosis, no clubbing, ROM intact, no edema. [] Neurologic: Mental status: Awake oriented and alert x3 Cranial nerves: Extraocular movements intact, eyebrows natlaia bilaterally smile symmetric, uvula elevation, shoulder shrug intact, tongue protrusion normal DTRs: 2+ Sensation: She describes a tingling in her left upper extremity and left face. Otherwise similar bilaterally on her legs. Strength: 5/5 in upper and lower extremities bilaterally Psychologic: Affect normal, judgement normal, mood normal. [] Current Patient Data Vital Signs Vital Signs Date Time Temp Pulse Resp B/P (MAP) Pulse Ox O2 Delivery O2 Flow Rate FiO2 04/14/17 20:20 98.0 75 18 118/56 (76) 100 Room Air 98.0 Lab Values Laboratory Tests Test 04/14/17 20:15 04/14/17 20:16 04/14/17 21:05 Urine Opiates Screen Pos (NEG) Urine Methadone Screen Neg (NEG) Urine Barbiturates Neg (NEG) Urine Phencyclidine Screen Neg (NEG) Urine Amphetamine/Methamphetamine Neg (NEG) Urine Benzodiazepines Screen Neg (NEG) Urine Cocaine Screen Neg (NEG) Urine Cannabinoids Screen Neg (NEG) Urine Ethyl Alcohol Neg (NEG) POC Urine HCG, Qualitative Hcg negative (Negative) White Blood Count 9.9 x10^3/uL (4.0-11.0) Red Blood Count 4.44 x10^6/uL (3.50-5.40) Hemoglobin 12.6 g/dL (12.0-15.5) Hematocrit 37.9 % (36.0-47.0) Mean Corpuscular Volume 85 fL (79-100) Mean Corpuscular Hemoglobin 28 pg (25-35) Mean Corpuscular Hemoglobin Concent 33 g/dL (31-37) Red Cell Distribution Width 14.3 % (11.5-14.5) Platelet Count 333 x10^3/uL (140-400) Neutrophils (%) (Auto) 54 % (31-73) Lymphocytes (%) (Auto) 37 % (24-48) Monocytes (%) (Auto) 7 % (0-9) Eosinophils (%) (Auto) 2 % (0-3) Basophils (%) (Auto) 1 % (0-3) Neutrophils # (Auto) 5.3 x10^3uL (1.8-7.7) Lymphocytes # (Auto) 3.6 x10^3/uL (1.0-4.8) Monocytes # (Auto) 0.7 x10^3/uL (0.0-1.1) Eosinophils # (Auto) 0.2 x10^3/uL (0.0-0.7) Basophils # (Auto) 0.1 x10^3/uL (0.0-0.2) Sodium Level 141 mmol/L (136-145) Potassium Level 3.6 mmol/L (3.5-5.1) Chloride Level 105 mmol/L (98-107) Carbon Dioxide Level 30 mmol/L (21-32) Anion Gap 6 (6-14) Blood Urea Nitrogen 12 mg/dL (7-20) Creatinine 0.8 mg/dL (0.6-1.0) Estimated GFR (Cockcroft-Gault) 81.6 Glucose Level 112 mg/dL (70-99) H Calcium Level 8.5 mg/dL (8.5-10.1) Troponin I Quantitative < 0.017 ng/mL (0.000-0.055) Laboratory Tests 04/14/17 21:05 Laboratory Tests 04/14/17 21:05 EKG EKG [] Radiology/Procedures Radiology/Procedures [] Course & Med Decision Making Course & Med Decision Making Pertinent Labs and Imaging studies reviewed. (See chart for details) [] Dragon Disclaimer Dragon Disclaimer This electronic medical record was generated, in whole or in part, using a voice recognition dictation system. Departure Departure Impression: Primary Impression: Left facial numbness Additional Impression: Paresthesia of left upper extremity Disposition: HOME, SELF-CARE Condition: STABLE Referrals: BEATRIZ FARRIS MD (PCP) Patient Instructions: Chest Pain (Nonspecific) Additional Instructions: Thank you for allowing us to participate in your care today. Followup with your primary care physician in 3 days if your symptoms do not improve. Call your Primary Doctor tomorrow and inform them of your visit today. If you do not have a primary care provider you can ask for a list of our primary care providers. Return to the emergency department you have any new or concerning findings. This should be evaluated by the primary care physician and any necessary consulting services for continued management within a few days after discharge. Return to emergency room if you have any new or concerning symptoms including but not limited to fever, chills, nausea, vomiting, intractable pain, any new rashes, chest pain, shortness of air, uncontrolled bleeding, difficulty breathing, and/or vision loss. You may have been prescribed medication that can change in your level of thinking and ability to operate machinery. These medications include hydrocodone and Ativan. Also, Benadryl has been known to do this as well. Be sure to check with your pharmacist and ask if the medications you've prescribed can affect your level of consciousness. I recommend not operating heavy machinery or driving while on medication such as these. Problem Qualifiers ABRAHAM LEE MD Apr 14, 2017 21:33
--- NOTE | 2017-04-14 21:39 | RAD ---
CT scan of the head without contrast 04/14/2017 Clinical History: Left-sided numbness in face and extremities. Headaches. Technique: Unenhanced, contiguous, 5 mm axial sections were obtained through the head. Findings: The ventricles and sulci are within normal limits in size and configuration. No focal area of abnormal attenuation is seen involving the brain parenchyma. No extra-axial fluid collection is seen. No skull fracture is seen. Impression: Negative study. Electronically signed by: Kennedy Fleming MD (04/14/2017 9:36 PM) [facility]
[2017-04-14] MEDS ORDERED: IV NORMAL SALINE 1000ML BAG 1,000 ML IV ONE (22:00)
[2017-04-14] MEDS ORDERED: METOCLOPRAMIDE HCL 10 MG/2 ML VIAL. IV ONE (22:00)
[2017-04-14] MEDS ORDERED: diphenhydrAMINE 50 MG/ML VIAL IVP ONE (22:00)
[2017-04-14 22:25] LABS: BARBITURATES NEG (NEG); BENZODIAZEPINES NEG (NEG); CANNABINOIDS NEG (NEG); COCAINE NEG (NEG); METHADONE NEG (NEG); OPIATES POS (NEG); PHENCYCLIDINE NEG (NEG)
--- NOTE | 2017-04-14 23:59 | RAD ---
MRI of the brain without contrast 04/14/2017 Clinical History: Headaches with tingling in the left face and arm. Technique: Unenhanced T1-weighted sagittal and axial, T2-weighted axial and coronal and FLAIR, gradient echo and diffusion-weighted axial images of the brain were obtained. Findings: Comparison is made to the patient's CT scan of the head performed earlier today. The ventricles and sulci are within normal limits in size and configuration. No area of significant abnormal signal intensity is seen involving brain parenchyma. No extra-axial fluid collection is seen. There is no MRI evidence of acute ischemia/infarction. The paranasal sinuses are essentially clear. Normal flow voids are seen within the major vascular structures surrounding the brain parenchyma. Impression: Negative study. Electronically signed by: Kennedy Fleming MD (04/14/2017 11:56 PM) [facility]
--- NOTE | 2017-04-15 06:39 | EKG ---
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
--- NOTE | 2017-04-15 08:28 | RAD ---
Chest, 2 views, 04/14/2017: History: Left-sided numbness, CVA Comparison is made to a study from 05/04/2016. The heart size and pulmonary vascularity are normal. No pulmonary infiltrates are seen. There is no evidence of pleural fluid. Mild spurring is present in the spine. IMPRESSION: No acute cardiopulmonary abnormality is detected.
== END 2017-04-15 00:15 | disposition home or self-care (01) ==
LOC: ER 19:57
DX: R20.0 Anesthesia of skin (principal); R20.2 Paresthesia of skin; R07.81 Pleurodynia; F41.9 Anxiety disorder, unspecified; F32.9 Major depressive disorder, single episode, unspecified; Z90.710 Acquired absence of both cervix and uterus; Z90.49 Acquired absence of other specified parts of digestive tract; Z88.5 Allergy status to narcotic agent; Z91.040 Latex allergy status
CPT/HCPCS: 36415; 70450; 70551; 71020; 80048; 80307; 81025; 84484; 85025; 93005; 96361; 96374; 96375; 99285; J1200; J2765; J7030; G0479

== ENCOUNTER 2017-06-28 10:25 | Emergency (ER) | payer OTHER ==
[~2017-06-28] VITALS: Ht 172.7 cm; Wt 102.1 kg
[~2017-06-28 10:25] MED LIST changes: +NAPR-683 PO; -NAPR500T PO
[2017-06-28 10:40] VITALS: BP 146/65
[2017-06-28 11:09] LABS: BILIRUBIN,URINE NEGATIVE (NEG); GLUCOSE,URINE NEGATIVE (NEG); NITRITE,URINE NEGATIVE (NEG); PROTEIN,URINE NEGATIVE (NEG-TRACE); UROBILINOGEN,URINE 0.2 mg/dL (0.2 mg/dL)
[2017-06-28 11:16] LABS: BACTERIA,URINE MANY /HPF (0-FEW); SQUAMOUS EPITHELIAL CELL,UR MANY /LPF
--- NOTE | 2017-06-28 11:52 | PHYS DOC ---
Past Medical History Past Medical History: Anxiety, Depression, Other Additional Past Medical Histor: fibroids Past Surgical History: Cholecystectomy, , Hysterectomy, Tubal ligation Additional Past Surgical Histo: D&C Alcohol Use: None Drug Use: None Adult General Chief Complaint Chief Complaint: BLOOD IN URINE [facility] Patient is a 36 year old female who presents with reported blood in her urine. The patient states that she was here at work and went to the restroom. She states that there was blood in the toilet as well as on the toilet paper. She came down to the emergency department to be evaluated. She states that when she gave urine sample here she did not see any blood on the toilet paper and her urine was not red. She states that she may have urinary frequency but denies any other symptoms including CVA tenderness. She does state that she has had some intermittent hip pain with movement to the left side. Review of Systems Review of Systems Constitutional: Denies fever or chills [] Respiratory: Denies cough or shortness of breath [] Cardiovascular: No additional information not addressed in [facility] [] GI: Denies abdominal pain, nausea, vomiting, bloody stools or diarrhea [] : See history of present illness Musculoskeletal: Denies back pain or joint pain [] Integument: Denies rash or skin lesions [] Neurologic: Denies headache, focal weakness or sensory changes [] Endocrine: Denies polyuria or polydipsia [] All other systems were reviewed and found to be within normal limits, except as documented in this note. Allergies Allergies Allergies Coded Allergies Type Severity Reaction Last Updated Verified hydrocodone Allergy Intermediate Itching 11/05/16 Yes latex Allergy Intermediate Rash 07/05/14 Yes morphine Adverse Reaction Severe Chest Pain 11/05/16 Yes Physical Exam Physical Exam Constitutional: Well developed, well nourished, no acute distress, non-toxic appearance. [] Cardiovascular:Heart rate regular rhythm, no murmur [] Lungs & Thorax: Bilateral breath sounds clear to auscultation [] Abdomen: Bowel sounds normal, soft, no tenderness, no masses, no pulsatile masses. [] Skin: Warm, dry, no erythema, no rash. [] Back: mild tenderness to right hip with flexion, ROM intact. [] Neurologic: Alert and oriented X 3, normal motor function, normal sensory function, no focal deficits noted. [] Psychologic: Affect normal, judgement normal, mood normal. [] Current Patient Data Vital Signs Vital Signs Date Time Temp Pulse Resp B/P (MAP) Pulse Ox O2 Delivery O2 Flow Rate FiO2 06/28/17 10:40 98.3 72 16 146/65 (92) 98 Room Air 98.3 Lab Values Laboratory Tests Test 06/28/17 10:55 Urine Collection Type Void Urine Color Yellow Urine Clarity Hazy Urine pH 6.0 Urine Specific [place] 1.025 Urine Protein Negative mg/dL (NEG-TRACE) Urine Glucose (UA) Negative mg/dL (NEG) Urine Ketones (Stick) Negative mg/dL (NEG) Urine Blood Negative (NEG) Urine Nitrite Negative (NEG) Urine Bilirubin Negative (NEG) Urine Urobilinogen Dipstick 0.2 mg/dL (0.2 mg/dL) Urine Leukocyte Esterase Negative (NEG) Urine RBC 1-2 /HPF (0-2) Urine WBC 1-4 /HPF (0-4) Urine Squamous Epithelial Cells Many /LPF Urine Bacteria Many /HPF (0-FEW) Urine Mucus Marked /LPF EKG EKG [] Radiology/Procedures Radiology/Procedures [] Course & Med Decision Making Course & Med Decision Making Pertinent Labs and Imaging studies reviewed. (See chart for details) []1. Urinary problem Lab results did not show any blood in your urine today. Follow-up with your primary care provider for further evaluation of your urinary problem. If you notice that you have more blood in your urine please feel free to return to the emergency department. Dragon Disclaimer Dragon Disclaimer This electronic medical record was generated, in whole or in part, using a voice recognition dictation system. Departure Departure Impression: Primary Impression: Other urinary problems Disposition: 01 HOME, SELF-CARE Condition: STABLE Patient Instructions: Hematuria, Adult Additional Instructions: Follow-up with your primary care provider for further evaluation of your urinary problem. If you notice that you have more blood in your urine please feel free to return to the emergency department. TOBY MALIN APRN Jun 28, 2017 11:52
== END 2017-06-28 12:09 | disposition home or self-care (01) ==
LOC: ER 10:25
DX: R31.9 Hematuria, unspecified (principal); M25.552 Pain in left hip; F41.9 Anxiety disorder, unspecified; F32.9 Major depressive disorder, single episode, unspecified; Z90.49 Acquired absence of other specified parts of digestive tract; Z90.710 Acquired absence of both cervix and uterus; Z88.5 Allergy status to narcotic agent; Z91.040 Latex allergy status
CPT/HCPCS: 81001; 87086; 99284

== ENCOUNTER → 2017-06-30 | Outpatient (CLI) | payer OTHER ==
[2017-06-30 12:17] LABS: ADD MAN DIFF? NO
[2017-06-30 12:27] LABS: BASO # 0.1 x10^3/uL (0.0-0.2); BASO % 1 % (0-3); EOS % 1 % (0-3); HEMATOCRIT 40.8 % (36.0-47.0); HEMOGLOBIN 13.2 g/dL (12.0-15.5); LYMPH # 2.6 x10^3/uL (1.0-4.8); LYMPH % 31 % (24-48); MEAN CORPUSCULAR HEMOGLOBIN 28 pg (25-35); MEAN CORPUSCULAR HGB CONC 32 g/dL (31-37); MEAN CORPUSCULAR VOLUME 88 fL (79-100); MONO % 7 % (0-9); NEUT % 60 % (31-73); PLATELET COUNT 335 x10^3/uL (140-400); RED BLOOD COUNT 4.66 x10^6/uL (3.50-5.40); RED CELL DISTRIBUTION WIDTH 15.4 % (11.5-14.5); WHITE BLOOD COUNT 8.2 x10^3/uL (4.0-11.0)
== END | disposition home or self-care (01) ==
LOC: LAB 11:58
DX: K62.5 Hemorrhage of anus and rectum (principal)
CPT/HCPCS: 36415; 85025

== ENCOUNTER → 2017-07-26 | Outpatient (CLI) | payer OTHER ==
[2017-07-26 09:02] LABS: ADD MAN DIFF? NO
[2017-07-26 09:13] LABS: BASO # 0.1 x10^3/uL (0.0-0.2); BASO % 1 % (0-3); EOS # 0.1 x10^3/uL (0.0-0.7); EOS % 1 % (0-3); HEMATOCRIT 40.4 % (36.0-47.0); HEMOGLOBIN 13.1 g/dL (12.0-15.5); LYMPH # 2.4 x10^3/uL (1.0-4.8); LYMPH % 35 % (24-48); MEAN CORPUSCULAR HEMOGLOBIN 29 pg (25-35); MEAN CORPUSCULAR HGB CONC 33 g/dL (31-37); MEAN CORPUSCULAR VOLUME 88 fL (79-100); MONO # 0.4 x10^3/uL (0.0-1.1); MONO % 6 % (0-9); NEUT # 3.9 x10^3uL (1.8-7.7); NEUT % 57 % (31-73); PLATELET COUNT 332 x10^3/uL (140-400); RED CELL DISTRIBUTION WIDTH 15.3 % (11.5-14.5); WHITE BLOOD COUNT 6.8 x10^3/uL (4.0-11.0)
[2017-07-26 09:23] LABS: ALBUMIN 3.5 g/dL (3.4-5.0); ALBUMIN/GLOBULIN RATIO 0.8 (1.0-1.7); ALK PHOS 72 U/L (46-116); ALT (SGPT) 20 U/L (14-59); ANION GAP 7 (6-14); AST (SGOT) 20 U/L (15-37); BLOOD UREA NITROGEN 9 mg/dL (7-20); BUN/CREATININE RATIO 11 (6-20); CALCIUM 8.3 mg/dL (8.5-10.1); CARBON DIOXIDE 27 mmol/L (21-32); CHLORIDE 106 mmol/L (98-107); CHOLESTEROL 187 mg/dL (0-200); CREATININE 0.8 mg/dL (0.6-1.0); GFR 98.2; GLUCOSE 103 mg/dL (70-99); HDLC 41 mg/dL (40-60); LDLC 125 mg/dL (0-100); NON-HDL CHOLESTEROL 146 mg/dL (0-129); POTASSIUM 3.5 mmol/L (3.5-5.1); SODIUM 140 mmol/L (136-145); TOTAL BILIRUBIN 0.3 mg/dL (0.2-1.0); TOTAL PROTEIN 7.8 g/dL (6.4-8.2); TRIGLYCERIDES 105 mg/dL (0-150); VLDLC 21 mg/dL (0-40)
[2017-07-26 09:25] LABS: CHOLESTEROL/HDL RATIO 4.6
[2017-07-26 09:32] LABS: THYROID STIM HORMONE (TSH) 2.809 uIU/mL (0.358-3.74)
[2017-07-26 17:18] LABS: HEMOGLOBIN A1C 5.2 % (4.8-5.6)
== END | disposition home or self-care (01) ==
LOC: LAB 08:47
DX: R42 Dizziness and giddiness (principal); L65.9 Nonscarring hair loss, unspecified; R53.83 Other fatigue; E78.2 Mixed hyperlipidemia
CPT/HCPCS: 36415; 80053; 80061; 83036; 83735; 84443; 85025

== ENCOUNTER → 2017-08-03 | Outpatient (CLI) | payer OTHER | END | disposition home or self-care (01) | LOC: KCIC 12:22 | DX: M47.897 Other spondylosis, lumbosacral region (principal); M48.07 Spinal stenosis, lumbosacral region | CPT/HCPCS: 72110; 73502 ==

== ENCOUNTER 2017-08-17 08:11 | Emergency (ER) | payer OTHER ==
[2017-08-17] MEDS ORDERED: 0.9 % SODIUM CHLORIDE 10 ML DISP.SYRIN. IV ×2 (08:30)
[2017-08-17 08:35] LABS: ADD MAN DIFF? NO
[2017-08-17] MEDS: ONDANSETRON PF 4 MG/2 ML VIAL. IV ×2 (08:36)
[2017-08-17] MEDS: KETOROLAC 30 MG/ML INJ. IV ×2 (08:38)
[2017-08-17] MEDS: IV NORMAL SALINE 1000ML BAG 1,000 ML IV ×2 (08:43)
[2017-08-17 08:45] LABS: BASO % 1 % (0-3); EOS # 0.1 x10^3/uL (0.0-0.7); EOS % 1 % (0-3); HEMATOCRIT 41.3 % (36.0-47.0); HEMOGLOBIN 13.4 g/dL (12.0-15.5); LYMPH # 3.3 x10^3/uL (1.0-4.8); LYMPH % 43 % (24-48); MEAN CORPUSCULAR HEMOGLOBIN 28 pg (25-35); MEAN CORPUSCULAR HGB CONC 33 g/dL (31-37); MEAN CORPUSCULAR VOLUME 87 fL (79-100); MONO # 0.5 x10^3/uL (0.0-1.1); MONO % 6 % (0-9); NEUT # 3.8 x10^3uL (1.8-7.7); NEUT % 50 % (31-73); PLATELET COUNT 329 x10^3/uL (140-400); RED BLOOD COUNT 4.74 x10^6/uL (3.50-5.40); RED CELL DISTRIBUTION WIDTH 14.9 % (11.5-14.5); WHITE BLOOD COUNT 7.7 x10^3/uL (4.0-11.0)
[2017-08-17 08:49] LABS: ANION GAP 11 (6-14); BLOOD UREA NITROGEN 14 mg/dL (7-20); CALCIUM 8.8 mg/dL (8.5-10.1); CARBON DIOXIDE 26 mmol/L (21-32); CHLORIDE 102 mmol/L (98-107); CREATININE 0.7 mg/dL (0.6-1.0); GFR 114.6; GLUCOSE 102 mg/dL (70-99); POTASSIUM 3.7 mmol/L (3.5-5.1); SODIUM 139 mmol/L (136-145)
[2017-08-17 08:55] LABS: ALBUMIN 3.2 g/dL (3.4-5.0); ALK PHOS 75 U/L (46-116); ALT (SGPT) 97 U/L (14-59); AST (SGOT) 131 U/L (15-37); DIRECT BILIRUBIN 0.2 mg/dL (0.0-0.2); TOTAL BILIRUBIN 0.6 mg/dL (0.2-1.0); TOTAL PROTEIN 7.6 g/dL (6.4-8.2)
[2017-08-17 08:57] LABS: TROPONINI < 0.017 ng/mL (0.000-0.055)
[2017-08-17 09:01] LABS: THYROID STIM HORMONE (TSH) 2.795 uIU/mL (0.358-3.74)
[2017-08-17 09:04] LABS: NT-PRO BNP 82 pg/mL (0-124)
[2017-08-17 09:04] LABS: CKMB INDEX 0.7 % (0-4); CKMB MASS 0.6 ng/mL (0.0-3.6); CREATINE KINASE 84 U/L (26-192)
[2017-08-17 09:11] LABS: INFLUENZA A PATIENT NEGATIVE (NEGATIVE); INFLUENZA B PATIENT NEGATIVE (NEGATIVE); OBC FLU VALID
[2017-08-17 09:20] LABS: BILIRUBIN,URINE NEGATIVE (NEG); GLUCOSE,URINE NEGATIVE (NEG); NITRITE,URINE NEGATIVE (NEG); PH,URINE 5.5; PROTEIN,URINE NEGATIVE (NEG-TRACE)
[2017-08-17 09:25] LABS: COLOR,URINE YELLOW
[2017-08-17 09:26] LABS: BACTERIA,URINE FEW /HPF (0-FEW); CLARITY,URINE HAZY; RBC,URINE 0 /HPF (0-2); SQUAMOUS EPITHELIAL CELL,UR MOD /LPF
== END 2017-08-17 10:31 | disposition home or self-care (01) ==
LOC: ER 08:11
DX: R11.2 Nausea with vomiting, unspecified (principal); R10.9 Unspecified abdominal pain; R19.7 Diarrhea, unspecified; K08.89 Other specified disorders of teeth and supporting structures; R68.84 Jaw pain; R53.1 Weakness; M79.1 Myalgia; K21.9 Gastro-esophageal reflux disease without esophagitis; F41.9 Anxiety disorder, unspecified; F32.9 Major depressive disorder, single episode, unspecified; Z90.49 Acquired absence of other specified parts of digestive tract; Z90.710 Acquired absence of both cervix and uterus; Z98.51 Tubal ligation status; Z88.5 Allergy status to narcotic agent; Z91.040 Latex allergy status
CPT/HCPCS: 36415; 71046; 80048; 80076; 81001; 82553; 83735; 83880; 84443; 84484; 85025; 87804; 87804-59; 93005; 96361; 96374; 96375; 99285-25; J1885; J2060; J2405; J7030

== ENCOUNTER → 2017-09-13 | Day surgery (SDC) | payer OTHER ==
[~2017-09-13] MED LIST changes: -ACET500T68 PO; -AMOX875T PO; -DIAZ5TAB PO; -ESCITALOPRAM OX10 MG PO; -GABA-585 PO; -HYDR-971 PO; +LIDOCAINE 1% PF 2 ML VIAL. ID; -MECL25TA3 PO; -METH4TAB2 PO; +MIDAZOLAM HCL/PF 2 MG/2 ML VIAL. IV; -NAPR-683 PO; -OXYC1TAB7 PO; -PANT40TA5 PO; -PENI500T PO; +PROPOFOL 40 ML IV; -TIZA4TAB PO; -TRAM-48 PO; +fentaNYL PF VIAL 100 MCG/2 ML VIAL IV
[2017-09-13] MEDS: IV RINGERS,LACTATED 1000ML 1,000 ML IV (08:04)
== END ==
LOC: ENDOS 07:07
DX: K64.0 First degree hemorrhoids (principal); F32.9 Major depressive disorder, single episode, unspecified; Z86.2 Personal history of diseases of the blood and blood-forming organs and certain disorders involving the immune mechanism; Z91.018 Allergy to other foods; Z90.49 Acquired absence of other specified parts of digestive tract
CPT/HCPCS: 45378; J2704

== ENCOUNTER 2017-11-20 10:18 | Emergency (ER) | payer SELFPAY, OTHER ==
[2017-11-20 11:10] LABS: BILIRUBIN,URINE NEGATIVE (NEG); CLARITY,URINE CLEAR; COLOR,URINE YELLOW; GLUCOSE,URINE NEGATIVE (NEG); NITRITE,URINE NEGATIVE (NEG); PROTEIN,URINE 30 mg/dL (NEG-TRACE)
[2017-11-20 11:16] LABS: BACTERIA,URINE MODERATE /HPF (0-FEW); WBC,URINE TNTC /HPF (0-4)
[2017-11-20] MEDS: cefTRIAXone IM 1 GM VIAL IM (11:46)
[2017-11-20] MEDS: oxyCODONE/APAP 5/325 1 TAB TABLET PO (11:47)
== END 2017-11-20 12:05 | disposition home or self-care (01) ==
LOC: ER 12:05
DX: N39.0 Urinary tract infection, site not specified (principal); F41.9 Anxiety disorder, unspecified; F32.9 Major depressive disorder, single episode, unspecified; Z90.49 Acquired absence of other specified parts of digestive tract; Z98.890 Other specified postprocedural states; Z90.710 Acquired absence of both cervix and uterus; Z98.51 Tubal ligation status; Z88.5 Allergy status to narcotic agent; Z91.040 Latex allergy status
CPT/HCPCS: 81001; 87086; 87186; 96372; 99284; J0696

== ENCOUNTER 2018-01-28 13:50 | Emergency (ER) | payer SELFPAY ==
[2018-01-28] MEDS: oxyCODONE/APAP 5/325 1 TAB TABLET PO (14:30)
[2018-01-28] MEDS: IBUPROFEN 800 MG TABLET. PO (14:30)
== END 2018-01-28 15:02 | disposition home or self-care (01) ==
LOC: ER 13:50
DX: K02.9 Dental caries, unspecified (principal); Z88.5 Allergy status to narcotic agent; Z91.040 Latex allergy status
CPT/HCPCS: 99283

== ENCOUNTER 2018-04-06 09:22 | Emergency (ER) | payer SELFPAY ==
[~2018-04-06] VITALS: Ht 172.7 cm; Wt 188.2 kg
[~2018-04-06 09:22] MED LIST changes: +ACET500T68 PO; +AMOX500C PO; +AMOX875T PO; +DIAZ5TAB PO; +DICY10AM IM; +ESCITALOPRAM OX10 MG PO; +GABA-585 PO; +HYDR-971 PO; -LIDOCAINE 1% PF 2 ML VIAL. ID; +MECL25TA3 PO; +METH4TAB2 PO; -MIDAZOLAM HCL/PF 2 MG/2 ML VIAL. IV; +NAPR-683 PO; +ONDA4TAB10 PO; +OXYC-323 PO; +OXYC1TAB7 PO; +PANT40TA5 PO; +PENI500T PO; +POTA10TA12 PO; -PROPOFOL 40 ML IV; +SULF1TAB24 PO; +TIZA4TAB PO; +TRAM-48 PO; -fentaNYL PF VIAL 100 MCG/2 ML VIAL IV
[2018-04-06 09:41] VITALS: BP 134/76
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
[2018-04-06] MEDS ORDERED: ORPHENADRINE CITRATE 60 MG/2 ML VIAL. IM ONE (10:45)
[2018-04-06] MEDS ORDERED: KETOROLAC 30 MG/ML VIAL. IM ONE (10:45)
[2018-04-06] MEDS ORDERED: NAPR-514 PO (11:18)
[2018-04-06] MEDS ORDERED: ORPH100T PO (11:18)
== END 2018-04-06 11:27 | disposition home or self-care (01) ==
LOC: ER 09:22
DX: S16.1XXA Strain of muscle, fascia and tendon at neck level, initial encounter (principal); S39.012A Strain of muscle, fascia and tendon of lower back, initial encounter; Z90.49 Acquired absence of other specified parts of digestive tract; Z90.710 Acquired absence of both cervix and uterus; Z98.890 Other specified postprocedural states; Z88.5 Allergy status to narcotic agent; Z91.040 Latex allergy status; V43.52XA Car driver injured in collision with other type car in traffic accident, initial encounter; Y93.89 Activity, other specified; Y92.410 Unspecified street and highway as the place of occurrence of the external cause; Y99.8 Other external cause status
CPT/HCPCS: 96372; 99284; J1885; J2360

== ENCOUNTER 2018-05-15 00:27 | Emergency (ER) | payer BC ==
[~2018-05-15] VITALS: Ht 172.7 cm; Wt 102.1 kg
[~2018-05-15 00:27] MED LIST changes: +NAPR-514 PO; +ORPH100T PO
[2018-05-15 00:46] VITALS: BP 118/65
--- NOTE | 2018-05-15 01:05 | PHYS DOC ---
Past Medical History Past Medical History: No Pertinent History Additional Past Medical Histor: fibroids Past Surgical History: Cholecystectomy, , Hysterectomy, Tubal ligation Additional Past Surgical Histo: D&C Alcohol Use: None Drug Use: None Adult General Chief Complaint Chief Complaint: SORE THROAT HPI HPI Patient is a 37 year old FEMALE who presents with nasal congestion and sore throat. This is been present for the past week and getting worse over time. No improvement with [id number] Mucinex. No fever. Patient does have sick contacts, her boyfriend, with similar symptoms. Patient denies any epistaxis. Patient reports that symptoms get worse with recumbent position.[] Review of Systems Review of Systems Constitutional: Denies fever or chills [] Eyes: Denies change in visual acuity, redness, or eye pain [] HENT: See history of present illness[] Respiratory: Denies shortness of breath [] Cardiovascular: No chest pain or palpitations[] GI: Denies abdominal pain, nausea, vomiting, bloody stools or diarrhea [] : Denies dysuria or hematuria [] Musculoskeletal: Denies back pain or joint pain [] Integument: Denies rash or skin lesions [] Neurologic: Denies headache, focal weakness or sensory changes [] Endocrine: Denies polyuria or polydipsia [] All other systems were reviewed and found to be within normal limits, except as documented in this note. Allergies Allergies Allergies Coded Allergies Type Severity Reaction Last Updated Verified hydrocodone Allergy Intermediate Itching 09/13/17 Yes latex Allergy Intermediate Rash 09/13/17 Yes morphine Adverse Reaction Severe Chest Pain 09/13/17 Yes Physical Exam Physical Exam Constitutional: Well developed, well nourished, no acute distress, non-toxic appearance. [] HENT: Normocephalic, atraumatic, bilateral external ears normal, oropharynx moist, no oral exudates, nose with clear rhinorrhea. [] Eyes: PERRLA, EOMI, conjunctiva normal, no discharge. [] Neck: Normal range of motion, no tenderness, supple, no stridor. [] Cardiovascular:Heart rate regular rhythm, no murmur [] Lungs & Thorax: Bilateral breath sounds clear to auscultation [] Abdomen: Bowel sounds normal, soft, no tenderness, no masses, no pulsatile masses. [] Skin: Warm, dry, no erythema, no rash. [] Back: No tenderness, no CVA tenderness. [] Extremities: No tenderness, no cyanosis, no clubbing, ROM intact, no edema. [] Neurologic: Alert and oriented X 3, normal motor function, normal sensory function, no focal deficits noted. [] Psychologic: Affect normal, judgement normal, mood normal. [] EKG EKG [] Radiology/Procedures Radiology/Procedures [] Course & Med Decision Making Course & Med Decision Making Pertinent Labs and Imaging studies reviewed. (See chart for details) Medical decision making: No evidence of meningitis, encephalitis, airway obstruction, nor tonsillitis. This appears to be more of an upper respiratory infection with post nasal drainage triggering the symptoms. We will attempt to provide better outpatient therapies and she has been experiencing currently.[] Dragon Disclaimer Dragon Disclaimer This electronic medical record was generated, in whole or in part, using a voice recognition dictation system. Departure Departure Impression: Primary Impression: Upper respiratory infection Disposition: HOME, SELF-CARE Condition: GOOD Referrals: BEATRIZ FARRIS MD (PCP) Follow up in 2 days Patient Instructions: Upper Respiratory Infection, Adult Additional Instructions: Drink plenty of fluids. Follow-up with your regular doctor in 2 days. Return to the ER if worsening difficulty breathing, blood in what you are coughing up, or any other concerns. Problem Qualifiers Primary Impression: Upper respiratory infection URI type: unspecified URI Qualified Codes: J06.9 - Acute upper respiratory infection, unspecified CALINEREIDAABE DO May 15, 2018 01:05
== END 2018-05-15 01:10 | disposition home or self-care (01) ==
LOC: ER 00:27
DX: J06.9 Acute upper respiratory infection, unspecified (principal); Z91.040 Latex allergy status; Z90.49 Acquired absence of other specified parts of digestive tract; Z90.710 Acquired absence of both cervix and uterus; Z98.890 Other specified postprocedural states; Z98.51 Tubal ligation status; Z88.5 Allergy status to narcotic agent
CPT/HCPCS: 99281

== ENCOUNTER → 2018-05-18 | Emergency (ER) | payer BC ==
[~2018-05-18] VITALS: Ht 172.7 cm; Wt 99.8 kg
[~2018-05-18] MED LIST changes: +AZIT250T6 PO; +AZITHROMYCIN 250 MG TABLET. PO ONE; +BENZ100C PO; +DEXT15LI7 PO
[2018-05-18 07:03] VITALS: BP 122/69
--- NOTE | 2018-05-18 08:01 | PHYS DOC ---
Past Medical History Past Medical History: No Pertinent History Additional Past Medical Histor: fibroids Past Surgical History: Cholecystectomy, , Hysterectomy, Tubal ligation Additional Past Surgical Histo: D&C Alcohol Use: None Drug Use: None Adult General Chief Complaint Chief Complaint: COUGH HPI HPI Patient is a 37 year old female who presents with cough and respiratory symptoms. Patient has been ill over the last 2 weeks. She complains of persistent wet cough, sore throat, upper airway congestion, and chills. Patient was evaluated in this emergency department for similar symptoms a few days earlier and was prescribed Phenergan DM but she perceives that this has not helped her symptoms. Her symptoms have continued to worsen. No neck stiffness, rash, headaches. Review of Systems Review of Systems Constitutional: Denies fever Eyes: Denies change in visual acuity HENT: + nasal congestion Respiratory: as documented above Cardiovascular: No additional information not addressed in HPI : Denies dysuria Musculoskeletal: Denies back pain Integument: Denies rash or skin lesions All other systems were reviewed and found to be within normal limits, except as documented in this note. Current Medications Current Medications Current Medications Medications (Trade) Dose Ordered Sig/Bernie Start Time Stop Time Status Last Admin Dose Admin Azithromycin (Zithromax) 500 mg 1X ONCE 05/18/18 07:30 05/18/18 07:37 DC 05/18/18 07:54 500 MG Allergies Allergies Allergies Coded Allergies Type Severity Reaction Last Updated Verified hydrocodone Allergy Intermediate Itching 09/13/17 Yes latex Allergy Intermediate Rash 09/13/17 Yes morphine Adverse Reaction Severe Chest Pain 09/13/17 Yes Physical Exam Physical Exam Constitutional: Well developed, well nourished, no acute distress, non-toxic appearance HENT: Normocephalic, atraumatic, bilateral external ears normal, oropharynx moist, mildly erythematous posterior oral pharynx, TM's eastman and normal in appearance bilaterally Eyes: PERRLA, EOMI, conjunctiva normal Neck: Normal range of motion Cardiovascular:Heart rate regular rhythm, no murmur Lungs & Thorax: Bilateral breath sounds clear to auscultation Skin: Warm, dry, no erythema, no rash Neurologic: Alert and oriented X 3 Psychologic: Affect normal Current Patient Data Vital Signs Vital Signs Date Time Temp Pulse Resp B/P (MAP) Pulse Ox O2 Delivery O2 Flow Rate FiO2 05/18/18 07:03 98.3 57 17 122/69 (86) 97 Room Air 98.3 EKG EKG [] Radiology/Procedures Radiology/Procedures [] Course & Med Decision Making Course & Med Decision Making Pertinent Labs and Imaging studies reviewed. (See chart for details) Patient is seen and examined. No acute findings on physical exam but patient does have persistent respiratory infection symptoms lasting over 2 weeks. Today , the patient is provided a prescription for azithromyin and medications for symptom relief. Work release also provided. She is non-toxic in appearance today. Encouraged again to f/u with her PCP or return to the ER for any new or worsening symptoms. Dragon Disclaimer Dragon Disclaimer This electronic medical record was generated, in whole or in part, using a voice recognition dictation system. Departure Departure Impression: Primary Impression: Bronchitis Disposition: 01 HOME, SELF-CARE Condition: GOOD Patient Instructions: Upper Respiratory Infection, Adult, Bronchitis Scripts Benzonatate (TESSALON PERLE) 100 Mg Capsule 100 MG PO TID PRN for COUGH for 7 Days, #21 CAP Prov: BABITA ALMENDAREZ DO 05/18/18 Dextromethorphan Hbr (TUSSIN COUGH) 15 Mg/5 Ml Liquid 15 MG PO TID PRN for COUGH, #120 ML ATTN pharmacist: If not available, please direct patient to an OTC equivalent. Prov: BABITA ALMENDAREZ DO 05/18/18 Azithromycin (AZITHROMYCIN TABLET) 250 Mg Tablet 250 MG PO DAILY for ANTI-BIOTIC, #4 TAB 0 Refills Prov: BABITA ALMENDAREZ DO 05/18/18 BABITA ALMENDAREZ DO May 18, 2018 08:01
== END ==
LOC: ER 07:03
DX: J40 Bronchitis, not specified as acute or chronic (principal); Z90.49 Acquired absence of other specified parts of digestive tract; Z98.890 Other specified postprocedural states; Z90.710 Acquired absence of both cervix and uterus; Z98.51 Tubal ligation status; Z88.8 Allergy status to other drugs, medicaments and biological substances; Z91.040 Latex allergy status; Z88.5 Allergy status to narcotic agent
CPT/HCPCS: 99283; Q0144

== ENCOUNTER 2018-06-07 20:07 | Emergency (ER) | payer BC ==
[~2018-06-07] VITALS: Ht 172.7 cm; Wt 104.3 kg
[~2018-06-07 20:07] MED LIST changes: -AZITHROMYCIN 250 MG TABLET. PO ONE; +HYDR-3164 PO; -HYDR-971 PO; -OXYC-323 PO; +OXYC1TAB15 PO
[2018-06-07 20:18] VITALS: BP 135/72
[2018-06-07] MEDS ORDERED: PENI500T PO (20:44)
[2018-06-07] MEDS ORDERED: NAPR-514 PO (20:44)
--- NOTE | 2018-06-07 20:45 | PHYS DOC ---
Past Medical History Past Medical History: No Pertinent History Additional Past Medical Histor: fibroids Past Surgical History: Cholecystectomy, , Hysterectomy, Tubal ligation Additional Past Surgical Histo: D&C Alcohol Use: None Drug Use: None Adult General Chief Complaint Chief Complaint: DENTAL PROBLEM HPI HPI Patient is a 37 year old R upper dental pain with a broken tooth off and on for the last 2 weeks that has increased today. Pt states the tooth has been broken for a long time. She denies any fever, cough, sore throat, difficulty swallowing, or injury. Pt states she has taken ibuprofen and extra strength tylenol for the pain with no relief. Her pain is a 10/10 at a this time. Review of Systems Review of Systems Constitutional: Denies fever or chills [] HENT: See HPI GI: Denies nausea, or vomiting Integument: Denies rash or skin lesions [] Neurologic: Denies headache, focal weakness or sensory changes [] All other systems were reviewed and found to be within normal limits, except as documented in this note. Allergies Allergies Allergies Coded Allergies Type Severity Reaction Last Updated Verified hydrocodone Allergy Intermediate Itching 09/13/17 Yes latex Allergy Intermediate Rash 09/13/17 Yes morphine Adverse Reaction Severe Chest Pain 09/13/17 Yes Physical Exam Physical Exam Constitutional: Well developed, well nourished, no acute distress, non-toxic appearance. [] HENT: Normocephalic, atraumatic, bilateral external ears normal, oropharynx moist, diffuse dental decay with fracture of tooth #3 no visible abscess, no oral exudates, nose normal. [] Eyes: conjunctiva normal, no discharge. [] Neck: Normal range of motion, no tenderness, supple, no stridor. [] Skin: Warm, dry, no erythema, no rash. [] Neurologic: Alert and oriented X 3, normal motor function, normal sensory function, no focal deficits noted. [] Psychologic: Affect normal, judgement normal, mood normal. [] Current Patient Data Vital Signs Vital Signs Date Time Temp Pulse Resp B/P (MAP) Pulse Ox O2 Delivery O2 Flow Rate FiO2 06/07/18 20:18 98.4 81 18 135/72 (93) 97 Room Air 98.4 EKG EKG [] Radiology/Procedures Radiology/Procedures [] Course & Med Decision Making Course & Med Decision Making Pertinent Labs and Imaging studies reviewed. (See chart for details) Dx: infected dental caries, dentalgia rx for PCN VK and naproxen. Follow up with dentist in 2 weeks as scheduled. Return to ER if sx worsen. Patient verbalized an understanding of home care, medications, follow-up, and return to ED instructions and was in agreement with the plan of care. [] Dragon Disclaimer Dragon Disclaimer This electronic medical record was generated, in whole or in part, using a voice recognition dictation system. Departure Departure Impression: Primary Impression: Dentalgia Additional Impression: Infected dental caries Disposition: HOME, SELF-CARE Condition: STABLE Referrals: BEATRIZ FARRIS MD (PCP) Patient Instructions: Dental Caries-Brief Additional Instructions: Fill prescriptions and use them as directed. Follow-up with your dentist as scheduled in 2 weeks. Return to the emergency room if symptoms worsen. Scripts Naproxen (NAPROXEN) 500 Mg Tablet 1 TAB PO BID PRN for PAIN for 10 Days, #20 TAB 0 Refills Prov: LAILA AL APRN 06/07/18 Penicillin V Potassium (PENICILLIN V POTASSIUM) 500 Mg Tablet 1 TAB PO QID, #40 TAB Prov: LAILA AL APRN 06/07/18 Problem Qualifiers LAILA AL APRN Jun 07, 2018 20:45
== END 2018-06-07 20:58 | disposition home or self-care (01) ==
LOC: ER 20:07
DX: S02.5XXA Fracture of tooth (traumatic), initial encounter for closed fracture (principal); K02.9 Dental caries, unspecified; Z90.710 Acquired absence of both cervix and uterus; Z98.890 Other specified postprocedural states; Z90.49 Acquired absence of other specified parts of digestive tract; Z98.51 Tubal ligation status; Z88.5 Allergy status to narcotic agent; Z91.040 Latex allergy status; X58.XXXA Exposure to other specified factors, initial encounter; Y93.89 Activity, other specified; Y92.89 Other specified places as the place of occurrence of the external cause; Y99.8 Other external cause status
CPT/HCPCS: 99283

== ENCOUNTER 2018-09-04 17:56 | Emergency (ER) | payer BC ==
[~2018-09-04] VITALS: Ht 170.2 cm; Wt 101.2 kg
--- NOTE | 2018-09-04 18:20 | PHYS DOC ---
Past Medical History Past Medical History: No Pertinent History Additional Past Medical Histor: fibroids Past Surgical History: Cholecystectomy, , Hysterectomy, Tubal ligation Additional Past Surgical Histo: D&C Smoking: Cigarettes (non-smoker) Alcohol Use: None Drug Use: None Adult General Chief Complaint Chief Complaint: CHEST PAIN HPI HPI Patient is 38-year-old female who presents to the emergency department for evaluation. She states that an hour prior to arrival, she began experiencing some anterior chest discomfort, described as a sharp pain in her anterior chest. The pain is worsened with palpation and deep breathing. She reports some mild shortness of breath, compared to baseline, but has not had any exertional chest pain, nausea, vomiting, or diaphoresis. She denies any numbness, or weakness. She denies any recent travel or immobilization, or contraceptive use. She has not had any nausea vomiting or diarrhea or abdominal pain. Other than as stated above, there are no alleviating or exacerbating factors to the patient 's symptoms. Assuming a normal troponin, the patient's HEART score is 0. Review of Systems Review of Systems Constitutional: Denies fever or chills [] Eyes: Denies change in visual acuity, redness, or eye pain [] HENT: Denies nasal congestion or sore throat [] Respiratory: Denies cough [] Cardiovascular: No additional information not addressed in HPI [] GI: Denies abdominal pain, nausea, vomiting, bloody stools or diarrhea [] : Denies dysuria or hematuria [] Musculoskeletal: Denies back pain or joint pain [] Integument: Denies rash or skin lesions [] Neurologic: Denies headache, focal weakness or sensory changes [] Endocrine: Denies polyuria or polydipsia [] All other systems were reviewed and found to be within normal limits, except as documented in this note. Current Medications Current Medications Current Medications Medications (Trade) Dose Ordered Sig/Bernie Start Time Stop Time Status Last Admin Dose Admin Aspirin (Children'S Aspirin) 324 mg 1X ONCE 09/04/18 18:30 09/04/18 18:31 DC 09/04/18 18:54 324 MG Allergies Allergies Allergies Coded Allergies Type Severity Reaction Last Updated Verified hydrocodone Allergy Intermediate Itching 09/13/17 Yes latex Allergy Intermediate Rash 09/13/17 Yes morphine Adverse Reaction Severe Chest Pain 09/13/17 Yes Physical Exam Physical Exam PHYSICAL EXAM: CONSTITUTIONAL: Well developed, well nourished HEAD: normocephalic, atraumatic EENT: PERRL, EOMI. Conjunctivae normal color, sclerae non-icteric; moist mucous membranes. NECK: Supple, non-tender; no meningismus. LUNGS: Lungs CTA, breathing even and unlabored. Normal air movement. HEART: Regular rate and rhythm, no murmur CHEST: No deformity; palpation of the anterior chest wall reproduces the patient 's pain. ABDOMEN: The abdomen is soft, and non-tender, no masses or bruits. EXTREM: Normal ROM; no deformity, no calf tenderness. Normal pulses palpable in all extremities. There is no pedal edema. SKIN: No rash; no diaphoresis NEURO: Alert; normal speech and cognition; CN's grossly intact; strength grossly intact without focal deficit. BACK: No CVA TTP. Current Patient Data Vital Signs Vital Signs Date Time Temp Pulse Resp B/P (MAP) Pulse Ox O2 Delivery O2 Flow Rate FiO2 09/04/18 18:05 98.0 96 16 130/61 (84) 99 Room Air 98.0 Lab Values Laboratory Tests Test 09/04/18 18:23 White Blood Count 10.5 x10^3/uL (4.0-11.0) Red Blood Count 4.32 x10^6/uL (3.50-5.40) Hemoglobin 12.4 g/dL (12.0-15.5) Hematocrit 37.6 % (36.0-47.0) Mean Corpuscular Volume 87 fL (79-100) Mean Corpuscular Hemoglobin 29 pg (25-35) Mean Corpuscular Hemoglobin Concent 33 g/dL (31-37) Red Cell Distribution Width 15.1 % (11.5-14.5) H Platelet Count 340 x10^3/uL (140-400) Neutrophils (%) (Auto) 62 % (31-73) Lymphocytes (%) (Auto) 30 % (24-48) Monocytes (%) (Auto) 6 % (0-9) Eosinophils (%) (Auto) 2 % (0-3) Basophils (%) (Auto) 1 % (0-3) Neutrophils # (Auto) 6.5 x10^3uL (1.8-7.7) Lymphocytes # (Auto) 3.2 x10^3/uL (1.0-4.8) Monocytes # (Auto) 0.6 x10^3/uL (0.0-1.1) Eosinophils # (Auto) 0.2 x10^3/uL (0.0-0.7) Basophils # (Auto) 0.1 x10^3/uL (0.0-0.2) D-Dimer (Sarah Beth) 0.40 ug/mlFEU (0.00-0.50) Sodium Level 142 mmol/L (136-145) Potassium Level 3.4 mmol/L (3.5-5.1) L Chloride Level 103 mmol/L (98-107) Carbon Dioxide Level 28 mmol/L (21-32) Anion Gap 11 (6-14) Blood Urea Nitrogen 9 mg/dL (7-20) Creatinine 0.8 mg/dL (0.6-1.0) Estimated GFR (Cockcroft-Gault) 97.7 BUN/Creatinine Ratio 11 (6-20) Glucose Level 108 mg/dL (70-99) H Calcium Level 8.2 mg/dL (8.5-10.1) L Total Bilirubin 0.2 mg/dL (0.2-1.0) Aspartate Amino Transferase (AST) 14 U/L (15-37) L Alanine Aminotransferase (ALT) 20 U/L (14-59) Alkaline Phosphatase 74 U/L (46-116) Creatine Kinase 98 U/L (26-192) Creatine Kinase MB (Mass) 0.6 ng/mL (0.0-3.6) Creatine Kinase MB Relative Index 0.6 % (0-4) Troponin I Quantitative < 0.017 ng/mL (0.000-0.055) JR-Fii-D-Type Natriuretic Peptide 41 pg/mL (0-124) Total Protein 7.4 g/dL (6.4-8.2) Albumin 3.0 g/dL (3.4-5.0) L Albumin/Globulin Ratio 0.7 (1.0-1.7) L Lipase 73 U/L (73-393) Laboratory Tests 09/04/18 18:23 Laboratory Tests 09/04/18 18:23 EKG EKG [Normal sinus rhythm with a normal rate, normal axis, normal intervals, there are no acute ischemic ST/T changes.] Repeat EKG done at 1924 shows no changes, normal sinus rhythm at a rate of 84 beats for minute, normal axis, normal intervals, without acute ischemic ST/T changes. Radiology/Procedures Radiology/Procedures [ER physician preliminary chest x-ray interpretation: No acute disease.] Course & Med Decision Making Course & Med Decision Making Pertinent Labs and Imaging studies reviewed. (See chart for details) [7:40 PM:Patient remains stable. I discussed test results, the need for close follow-up, and return precautions.] Dragon Disclaimer Dragon Disclaimer This electronic medical record was generated, in whole or in part, using a voice recognition dictation system. Departure Departure Impression: Primary Impression: Chest pain Disposition: 01 HOME, SELF-CARE Condition: STABLE Referrals: BEATRIZ FARRIS MD (PCP) Patient Instructions: Chest Pain (Nonspecific), Chest Wall Pain HAYES FORREST MD Sep 04, 2018 18:19
[2018-09-04] MEDS ORDERED: ASPIRIN CHEWABLE 81 MG TABLET. PO ONE (18:30)
[2018-09-04 18:34] LABS: BASO # 0.1 x10^3/uL (0.0-0.2); BASO % 1 % (0-3); EOS # 0.2 x10^3/uL (0.0-0.7); EOS % 2 % (0-3); HEMATOCRIT 37.6 % (36.0-47.0); HEMOGLOBIN 12.4 g/dL (12.0-15.5); LYMPH # 3.2 x10^3/uL (1.0-4.8); LYMPH % 30 % (24-48); MEAN CORPUSCULAR HEMOGLOBIN 29 pg (25-35); MEAN CORPUSCULAR HGB CONC 33 g/dL (31-37); MEAN CORPUSCULAR VOLUME 87 fL (79-100); MONO # 0.6 x10^3/uL (0.0-1.1); MONO % 6 % (0-9); NEUT # 6.5 x10^3uL (1.8-7.7); NEUT % 62 % (31-73); PLATELET COUNT 340 x10^3/uL (140-400); RED BLOOD COUNT 4.32 x10^6/uL (3.50-5.40); RED CELL DISTRIBUTION WIDTH 15.1 % (11.5-14.5); WHITE BLOOD COUNT 10.5 x10^3/uL (4.0-11.0)
[2018-09-04 18:53] LABS: CALCIUM 8.2 mg/dL (8.5-10.1); CREATININE 0.8 mg/dL (0.6-1.0); GFR 97.7; POTASSIUM 3.4 mmol/L (3.5-5.1)
[2018-09-04 18:58] LABS: ALBUMIN/GLOBULIN RATIO 0.7 (1.0-1.7); TOTAL BILIRUBIN 0.2 mg/dL (0.2-1.0); TOTAL PROTEIN 7.4 g/dL (6.4-8.2)
[2018-09-04 19:47] VITALS: BP 116/62
--- NOTE | 2018-09-04 23:10 | RAD ---
CHEST PA LATERAL History: Mid chest pain for one hour, chronic shortness of air Comparison: 08/17/2017 Findings: 2 views of the chest are submitted. There is no infiltrate, pneumothorax, or effusion. The cardiac silhouette is within normal limits in size. The trachea is in the midline. No acute osseous abnormality is identified. Impression: 1. There is no radiographic evidence of acute cardiopulmonary disease. Electronically signed by: Giuseppe Sims MD (09/04/2018 11:06 PM) [facility]
--- NOTE | 2018-09-05 08:29 | EKG ---
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
--- NOTE | 2018-09-05 10:33 | EKG ---
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
== END 2018-09-04 19:55 | disposition home or self-care (01) ==
LOC: ER 17:56
DX: R07.89 Other chest pain (principal); R06.02 Shortness of breath; Z90.49 Acquired absence of other specified parts of digestive tract; Z98.890 Other specified postprocedural states; Z90.710 Acquired absence of both cervix and uterus; Z98.51 Tubal ligation status; Z88.5 Allergy status to narcotic agent; Z91.040 Latex allergy status
CPT/HCPCS: 36415; 71046; 80053; 82553; 83690; 83880; 84484; 85025; 85379; 93005; 99284-25

== ENCOUNTER 2019-03-22 06:37 | Emergency (ER) | payer BC, OTHER ==
[~2019-03-22] VITALS: Ht 175.3 cm; Wt 101.2 kg
[~2019-03-22 06:37] MED LIST changes: -PANT40TA5 PO; +PANT40TA77 PO; -TIZA4TAB PO; +TIZA4TAB2 PO
[2019-03-22] MEDS ORDERED: KETOROLAC 30 MG/ML VIAL. IV ONE (07:00)
[2019-03-22] MEDS ORDERED: IV NORMAL SALINE 1000ML BAG 1,000 ML IV SCH (07:00)
[2019-03-22] MEDS ORDERED: ONDANSETRON PF 4 MG/2 ML VIAL. IV ONE (07:00)
--- NOTE | 2019-03-22 07:04 | PHYS DOC ---
Past Medical History Past Medical History: No Pertinent History Additional Past Medical Histor: fibroids Past Surgical History: Cholecystectomy, , Hysterectomy, Tubal ligation, Other Additional Past Surgical Histo: D&C Alcohol Use: None Drug Use: None Adult General Chief Complaint Chief Complaint: FEVER HPI HPI Patient is a 38 year old female who presents with complaining of abdominal pain and diarrhea and fever. Patient states she had sharp periumbilical abdominal pain since yesterday while she was at work and had more than 10 episodes of nonbloody diarrhea since yesterday with the last bowel movement just prior to arrival to ER. Patient complaining of nausea without vomiting and he states she felt hot on night. Patient denies cough and congestion, chest pain, shortness of breath, urinary symptom. Patient states she works at a [employer] and had sick contacts at work. Review of Systems Review of Systems Constitutional: Reports subjective fever Eyes: Denies change in visual acuity, redness, or eye pain [] HENT: Denies nasal congestion or sore throat [] Respiratory: Denies cough or shortness of breath [] Cardiovascular: No additional information not addressed in HPI [] GI: Reports abdominal pain, nausea, diarrhea [] : Denies dysuria or hematuria [] Musculoskeletal: Denies back pain or joint pain [] Integument: Denies rash or skin lesions [] Neurologic: Denies headache, focal weakness or sensory changes [] Endocrine: Denies polyuria or polydipsia [] All other systems were reviewed and found to be within normal limits, except as documented in this note. Current Medications Current Medications Current Medications Medications (Trade) Dose Ordered Sig/[facility] Start Time Stop Time Status Last Admin Dose Admin Ketorolac Tromethamine (Toradol 30mg Vial) 30 mg 1X ONCE 03/22/19 07:00 03/22/19 07:01 DC 03/22/19 07:13 30 MG Ondansetron HCl (Zofran) 4 mg 1X ONCE 03/22/19 07:00 03/22/19 07:01 DC 03/22/19 07:13 4 MG Sodium Chloride 1,000 ml @ 1,000 mls/hr Q1H 03/22/19 07:00 03/22/19 07:59 DC 03/22/19 07:13 1,000 MLS/HR Allergies Allergies Allergies Coded Allergies Type Severity Reaction Last Updated Verified hydrocodone Allergy Intermediate Itching 09/13/17 Yes latex Allergy Intermediate Rash 09/13/17 Yes morphine Adverse Reaction Severe Chest Pain 09/13/17 Yes Physical Exam Physical Exam Constitutional: Well developed, well nourished, mild distress, non-toxic appearance. [] HENT: Normocephalic, atraumatic. Eyes: PERRLA, EOMI, conjunctiva normal, no discharge. [] Neck: Normal range of motion, no tenderness, supple, no stridor. [] Cardiovascular:Heart rate regular rhythm, no murmur [] Lungs & Thorax: Bilateral breath sounds clear to auscultation [] Abdomen: Bowel sounds normal, soft, no tenderness, no masses, no pulsatile masses. [] Skin: Warm, dry, no erythema, no rash. [] Back: No tenderness, no CVA tenderness. [] Extremities: No tenderness, no cyanosis, no clubbing, ROM intact, no edema. [] Neurologic: Alert and oriented X 3, no focal deficits noted. [] Psychologic: Affect normal, judgement normal, mood normal. [] Current Patient Data Vital Signs Vital Signs Date Time Temp Pulse Resp B/P (MAP) Pulse Ox O2 Delivery O2 Flow Rate FiO2 03/22/19 06:45 98.7 74 18 126/70 (88) 87 Room Air 98.7 Lab Values Laboratory Tests Test 03/22/19 06:58 03/22/19 07:05 Urine Collection Type Unknown Urine Color Yellow Urine Clarity Clear Urine pH 6.0 Urine Specific Wing 1.025 Urine Protein Negative mg/dL (NEG-TRACE) Urine Glucose (UA) Negative mg/dL (NEG) Urine Ketones (Stick) Negative mg/dL (NEG) Urine Blood Negative (NEG) Urine Nitrite Negative (NEG) Urine Bilirubin Negative (NEG) Urine Urobilinogen Dipstick 0.2 mg/dL (0.2 mg/dL) Urine Leukocyte Esterase Negative (NEG) Urine RBC 0 /HPF (0-2) Urine WBC 1-4 /HPF (0-4) Urine Squamous Epithelial Cells Mod /LPF Urine Bacteria Few /HPF (0-FEW) Urine Mucus Marked /LPF White Blood Count 7.9 x10^3/uL (4.0-11.0) Red Blood Count 4.56 x10^6/uL (3.50-5.40) Hemoglobin 13.3 g/dL (12.0-15.5) Hematocrit 39.9 % (36.0-47.0) Mean Corpuscular Volume 88 fL (79-100) Mean Corpuscular Hemoglobin 29 pg (25-35) Mean Corpuscular Hemoglobin Concent 33 g/dL (31-37) Red Cell Distribution Width 15.0 % (11.5-14.5) H Platelet Count 359 x10^3/uL (140-400) Neutrophils (%) (Auto) 57 % (31-73) Lymphocytes (%) (Auto) 34 % (24-48) Monocytes (%) (Auto) 7 % (0-9) Eosinophils (%) (Auto) 2 % (0-3) Basophils (%) (Auto) 1 % (0-3) Neutrophils # (Auto) 4.5 x10^3/uL (1.8-7.7) Lymphocytes # (Auto) 2.7 x10^3/uL (1.0-4.8) Monocytes # (Auto) 0.5 x10^3/uL (0.0-1.1) Eosinophils # (Auto) 0.1 x10^3/uL (0.0-0.7) Basophils # (Auto) 0.0 x10^3/uL (0.0-0.2) Sodium Level 141 mmol/L (136-145) Potassium Level 4.0 mmol/L (3.5-5.1) Chloride Level 107 mmol/L (98-107) Carbon Dioxide Level 29 mmol/L (21-32) Anion Gap 5 (6-14) L Blood Urea Nitrogen 11 mg/dL (7-20) Creatinine 0.9 mg/dL (0.6-1.0) Estimated GFR (Cockcroft-Gault) 85.2 BUN/Creatinine Ratio 12 (6-20) Glucose Level 91 mg/dL (70-99) Calcium Level 8.9 mg/dL (8.5-10.1) Total Bilirubin 0.3 mg/dL (0.2-1.0) Aspartate Amino Transferase (AST) 17 U/L (15-37) Alanine Aminotransferase (ALT) 21 U/L (14-59) Alkaline Phosphatase 69 U/L (46-116) Total Protein 7.3 g/dL (6.4-8.2) Albumin 3.3 g/dL (3.4-5.0) L Albumin/Globulin Ratio 0.8 (1.0-1.7) L Lipase 88 U/L (73-393) Laboratory Tests 03/22/19 07:05 Laboratory Tests 03/22/19 07:05 EKG EKG [] Radiology/Procedures Radiology/Procedures [] Course & Med Decision Making Course & Med Decision Making Pertinent Labs reviewed. (See chart for details) Evaluation of patient in ER showed 38-year-old female patient with complaining of abdominal pain and diarrhea and subjective fever. Patient was afebrile in ER with unremarkable physical exam and labs. Patient treated with IV fluid and Toradol and Zofran and felt better. Plan discharge patient home with diagnosis of viral gastroenteritis. Dragon Disclaimer Dragon Disclaimer This electronic medical record was generated, in whole or in part, using a voice recognition dictation system. Departure Departure Impression: Primary Impression: Acute gastroenteritis Disposition: HOME, SELF-CARE (at 0827) Condition: IMPROVED Referrals: BEATRIZ FARRIS MD (PCP) Patient Instructions: Viral Gastroenteritis Additional Instructions: Drink plenty of liquids Follow-up with your primary care physician in 3-5 days Return to ER if not getting better Do not eat solid food today Scripts Ondansetron Hcl (ZOFRAN) 4 Mg Tablet 1 TAB PO PRN Q6-8HRS for nausea, #12 TAB Prov: PRIYANKA WYNN MD 03/22/19 Tramadol Hcl (ULTRAM) 50 Mg Tablet 50 MG PO Q6HRS PRN for PAIN, #14 TAB 0 Refills Prov: PRIYANKA WYNN MD 03/22/19 PRIYANKA WYNN MD Mar 22, 2019 07:04
[2019-03-22 07:23] LABS: BILIRUBIN,URINE NEGATIVE (NEG); CLARITY,URINE CLEAR; COLOR,URINE YELLOW; NITRITE,URINE NEGATIVE (NEG); PROTEIN,URINE NEGATIVE (NEG-TRACE); UROBILINOGEN,URINE 0.2 mg/dL (0.2 mg/dL)
[2019-03-22 07:28] LABS: CALCIUM 8.9 mg/dL (8.5-10.1); CREATININE 0.9 mg/dL (0.6-1.0); GFR 85.2
[2019-03-22 07:33] LABS: ALBUMIN 3.3 g/dL (3.4-5.0); ALBUMIN/GLOBULIN RATIO 0.8 (1.0-1.7); BASO % 1 % (0-3); EOS # 0.1 x10^3/uL (0.0-0.7); EOS % 2 % (0-3); HEMATOCRIT 39.9 % (36.0-47.0); HEMOGLOBIN 13.3 g/dL (12.0-15.5); LYMPH # 2.7 x10^3/uL (1.0-4.8); LYMPH % 34 % (24-48); MEAN CORPUSCULAR HEMOGLOBIN 29 pg (25-35); MEAN CORPUSCULAR HGB CONC 33 g/dL (31-37); MEAN CORPUSCULAR VOLUME 88 fL (79-100); MONO # 0.5 x10^3/uL (0.0-1.1); MONO % 7 % (0-9); NEUT # 4.5 x10^3/uL (1.8-7.7); NEUT % 57 % (31-73); PLATELET COUNT 359 x10^3/uL (140-400); RED BLOOD COUNT 4.56 x10^6/uL (3.50-5.40); TOTAL BILIRUBIN 0.3 mg/dL (0.2-1.0); TOTAL PROTEIN 7.3 g/dL (6.4-8.2); WHITE BLOOD COUNT 7.9 x10^3/uL (4.0-11.0)
[2019-03-22 07:34] LABS: BACTERIA,URINE FEW /HPF (0-FEW); RBC,URINE 0 /HPF (0-2); SQUAMOUS EPITHELIAL CELL,UR MOD /LPF
[2019-03-22 08:16] VITALS: BP 118/59
[2019-03-22] MEDS ORDERED: TRAM-48 PO (08:31)
[2019-03-22] MEDS ORDERED: ONDA4TAB7 PO (08:31)
== END 2019-03-22 08:59 | disposition home or self-care (01) ==
LOC: ER 06:37
DX: K52.9 Noninfective gastroenteritis and colitis, unspecified (principal); R11.0 Nausea; Z90.49 Acquired absence of other specified parts of digestive tract; Z90.710 Acquired absence of both cervix and uterus; Z98.51 Tubal ligation status; Z98.890 Other specified postprocedural states; Z88.5 Allergy status to narcotic agent; Z91.040 Latex allergy status
CPT/HCPCS: 36415; 80053; 81001; 83690; 85025; 96361; 96374; 96375; 99284; J1885; J2405; J7030

== ENCOUNTER 2019-06-15 07:53 | Emergency (ER) | payer SELFPAY ==
[~2019-06-15] VITALS: Ht 170.2 cm; Wt 99.8 kg
[~2019-06-15 07:53] MED LIST changes: +ONDA4TAB7 PO; -POTA10TA12 PO; +POTASSIUM CHLO10 ME1 PO
[2019-06-15 07:57] VITALS: BP 132/61
--- NOTE | 2019-06-15 08:15 | PHYS DOC ---
Past Medical History Past Medical History: No Pertinent History Additional Past Medical Histor: fibroids Past Surgical History: Cholecystectomy, , Hysterectomy, Tubal li gation, Other Additional Past Surgical Histo: D&C Alcohol Use: None Drug Use: None Adult General Chief Complaint Chief Complaint: FEVER HPI HPI Patient is a 38-year-old female who presents with complaint of dry cough and fever along with diffuse body aches and chills that started last night. Patient states that she had brought her daughter into the emergency room yesterday and she had been feeling normal at that time. She states that after she went to bed that she started to develop some chills and was having hot and cold spells. She states that this morning when she went into work she had developed severe body aches and when her workplace checked her temperature, it was over 101. She states that she did take some Tylenol prior to coming into the emergency room today.[] Review of Systems Review of Systems Constitutional: Positive fever and chills [] HENT: Positive congestion without sore throat [] Respiratory: Complains of cough without shortness of breath [] Cardiovascular: No additional information not addressed in HPI [] GI: Denies abdominal pain, nausea, vomiting or diarrhea [] Musculoskeletal: Complains of diffuse body aches/pain [] Neurologic: Denies headache, focal weakness or sensory changes [] Allergies Allergies Allergies Coded Allergies Type Severity Reaction Last Updated Verified hydrocodone Allergy Intermediate Itching 09/13/17 Yes latex Allergy Intermediate Rash 09/13/17 Yes morphine Adverse Reaction Severe Chest Pain 09/13/17 Yes Physical Exam Physical Exam Constitutional: Well developed, well nourished, no acute distress, non-toxic appearance. [] HENT: Normocephalic, atraumatic, bilateral external ears normal, oropharynx moist, no oral exudates, nose normal. [] Cardiovascular: Regular rate and rhythm[] Lungs & Thorax: Bilateral breath sounds clear to auscultation [] Skin: Warm, dry, no erythema, no rash. [] Neurologic: Alert and oriented X 3, no focal deficits noted. [] Current Patient Data Vital Signs Vital Signs Date Time Temp Pulse Resp B/P (MAP) Pulse Ox O2 Delivery O2 Flow Rate FiO2 06/15/19 07:57 98.5 77 18 132/61 (84) 99 Room Air 98.5 EKG EKG [] Radiology/Procedures Radiology/Procedures [] Course & Med Decision Making Course & Med Decision Making Pertinent Labs and Imaging studies reviewed. (See chart for details) [] Dragon Disclaimer Dragon Disclaimer This electronic medical record was generated, in whole or in part, using a voice recognition dictation system. Departure Departure Impression: Primary Impression: Influenza B Disposition: HOME, SELF-CARE Condition: STABLE Referrals: NO PCP (PCP) Patient Instructions: Form - Excuse from Work, School, or Physical Activity, Influenza, Adult Scripts Oseltamivir Phosphate (TAMIFLU) 75 Mg Capsule 1 CAP PO BID, #10 CAP Prov: RACHEL PRETTY Jr. DO 06/15/19 RACHEL PRETTY Jr. DO Jun 15, 2019 08:15
[2019-06-15 08:35] LABS: INFLUENZA A PATIENT NEGATIVE (NEGATIVE)
[2019-06-15 08:36] LABS: INFLUENZA B PATIENT POSITIVE (NEGATIVE)
[2019-06-15] MEDS ORDERED: OSEL75CA PO (08:36)
[2019-06-15] MEDS ORDERED: BENZ100C PO (20:21)
[2019-06-15] MEDS ORDERED: METH4TAB2 PO (20:21)
== END 2019-06-15 08:40 | disposition home or self-care (01) ==
LOC: ER 07:53
DX: J10.1 Influenza due to other identified influenza virus with other respiratory manifestations (principal); R09.81 Nasal congestion; R50.9 Fever, unspecified; R05 Cough; Z90.49 Acquired absence of other specified parts of digestive tract; Z90.710 Acquired absence of both cervix and uterus; Z98.51 Tubal ligation status; Z98.890 Other specified postprocedural states; Z88.6 Allergy status to analgesic agent; Z88.5 Allergy status to narcotic agent; Z91.040 Latex allergy status
CPT/HCPCS: 87804; 99284

== ENCOUNTER 2019-06-15 17:56 | Emergency (ER) | payer SELFPAY ==
[~2019-06-15] VITALS: Ht 170.2 cm; Wt 106.6 kg
[~2019-06-15 17:56] MED LIST changes: +OSEL75CA PO
[2019-06-15 19:30] VITALS: BP 155/67
--- NOTE | 2019-06-15 20:03 | PHYS DOC ---
Past Medical History Past Medical History: Other Additional Past Medical Histor: fibroids Past Surgical History: Cholecystectomy, , Hysterectomy, Tubal ligation, Other Additional Past Surgical Histo: D&C Alcohol Use: None Drug Use: None Adult General Chief Complaint Chief Complaint: FEVER HPI HPI Patient is a 38 year old female who presents with was here today and diagnosed with influenza B. Patient was given Tamiflu. She stated her symptoms started yesterday. She states that she cannot get her fever down. She states her fever w as higher and 2 at 1700 today. She states she took 800 mg of ibuprofen. Patient's temperature in the ER is 99.7. Patient states she also woke up from a nap and felt short of air. Review of Systems Review of Systems Constitutional: fever or chills [] HENT: nasal congestion or sore throat [] Respiratory: cough or shortness of breath [] All other systems were reviewed and found to be within normal limits, except as documented in this note. Allergies Allergies Allergies Coded Allergies Type Severity Reaction Last Updated Verified hydrocodone Allergy Intermediate Itching 09/13/17 Yes latex Allergy Intermediate Rash 09/13/17 Yes morphine Adverse Reaction Severe Chest Pain 09/13/17 Yes Physical Exam Physical Exam Constitutional: Well developed, well nourished, no acute distress, non-toxic appearance. [] HENT: Normocephalic, atraumatic, bilateral external ears normal, oropharynx moist, no oral exudates, nose normal. [] Eyes: PERRLA, EOMI, conjunctiva normal, no discharge. [] Neck: Normal range of motion, no tenderness, supple, no stridor. [] Cardiovascular:Heart rate regular rhythm, no murmur [] Lungs & Thorax: Bilateral breath sounds clear to auscultation [] Abdomen: Bowel sounds normal, soft, no tenderness, no masses, no pulsatile masses. [] Skin: Warm, dry, no erythema, no rash. [] Back: No tenderness, no CVA tenderness. [] Extremities: No tenderness, no cyanosis, no clubbing, ROM intact, no edema. [] Neurologic: Alert and oriented X 3, normal motor function, normal sensory function, no focal deficits noted. [] Psychologic: Affect normal, judgement normal, mood normal. Normal Physical Exam [] Current Patient Data Vital Signs Vital Signs Date Time Temp Pulse Resp B/P (MAP) Pulse Ox O2 Delivery O2 Flow Rate FiO2 06/15/19 19:30 99.5 94 22 155/67 (96) 98 Room Air 99.5 EKG EKG [] Radiology/Procedures Radiology/Procedures [] Course & Med Decision Making Course & Med Decision Making Alert and oriented. Ambulatory with a steady gait. Lungs are clear to auscultation all lobes. Skin pink warm and dry.Speaks in full clear sentences. Mucous membranes are moist. Vital signs within normal limits. Denies chest pain, numbness or tingling, dizziness, visual changes, abdominal pain, nausea, vomiting. Chest xray read by Dr Sorensen as no acute findings. I will start the patient on a medrol dose pack. Dragon Disclaimer Dragon Disclaimer This electronic medical record was generated, in whole or in part, using a voice recognition dictation system. Departure Departure Impression: Primary Impression: Fever Additional Impressions: Cough Shortness of breath Disposition: HOME, SELF-CARE Condition: STABLE Referrals: NO PCP (PCP) Patient Instructions: Influenza, Adult Additional Instructions: Take medications as prescribed. Sleep elevated. Continue taking Ibuprofen and Tylenol for fever. Drink plenty of fluids. Scripts Benzonatate (TESSALON PERLE) 100 Mg Capsule 1 CAP PO TID, #30 CAP Prov: NISHA MARTINEZ STEAMBOAT INSPECTOR 06/15/19 Methylprednisolone (MEDROL) 4 Mg Tab.ds.pk 1 PKG PO UD, #1 PKG Prov: NISHA MARTINEZ APRN 06/15/19 Problem Qualifiers Primary Impression: Fever Fever type: unspecified Qualified Codes: R50.9 - Fever, unspecified NISHA MARTINEZ STEAMBOAT INSPECTOR Jun 15, 2019 20:03
[2019-06-15] MEDS ORDERED: BENZ100C PO (20:21)
[2019-06-15] MEDS ORDERED: METH4TAB2 PO (20:21)
--- NOTE | 2019-06-15 22:20 | RAD ---
Study: CHEST PA LATERAL Indication: Cough and flu. Comparison: 09/04/2018 Findings: The lung dolan are clear. No pneumothorax or pleural effusion. Unremarkable cardiomediastinal silhouette and davi. Cholecystectomy clips. No free air seen under the diaphragm. Gaseous distention of bowel at the left upper quadrant and central upper abdomen. Impression: No acute radiographic abnormality of the chest. Electronically signed by: JC BEAL MD (06/15/2019 10:17 PM) [facility]
== END 2019-06-15 20:40 | disposition home or self-care (01) ==
LOC: ER 17:56
DX: R50.9 Fever, unspecified (principal); R05 Cough; R06.02 Shortness of breath; Z88.4 Allergy status to anesthetic agent; Z91.040 Latex allergy status
CPT/HCPCS: 71046; 99284-25

== ENCOUNTER 2020-05-27 20:12 | Emergency (ER) | payer SELFPAY ==
[~2020-05-27 20:12] MED LIST changes: +MECL-75 PO; -MECL25TA3 PO
== END 2020-05-27 20:16 | disposition left against medical advice (07) ==
LOC: ER 20:12
DX: R50.9 Fever, unspecified (principal); Z53.21 Procedure and treatment not carried out due to patient leaving prior to being seen by health care provider

== ENCOUNTER 2020-05-28 12:20 | Emergency (ER) | payer BC ==
[~2020-05-28] VITALS: Ht 170.2 cm; Wt 106.9 kg
--- NOTE | 2020-05-28 12:52 | PHYS DOC ---
Past Medical History Past Medical History: Other Additional Past Medical Histor: fibroids Past Surgical History: Cholecystectomy, , Hysterectomy, Tubal ligation, Other Additional Past Surgical Histo: D&C Smoking Status: Never Smoker Alcohol Use: None Drug Use: None General Adult EDM: Chief Complaint: SHORTNESS OF BREATH HPI: HPI: Patient is a 39 year old female with no significant medical history who presents to the ED today complaining of shortness of breath and chest tightness, symptoms for 2 days. Patient states today she went to get tested for COVID-19 at [facility] and was positive, she decided to come to the ED to be evaluated. Denies any fever. Review of Systems: Review of Systems: Constitutional: Denies fever or chills. [] Eyes: Denies change in visual acuity. [] HENT: Denies nasal congestion or sore throat. [] Respiratory: Reports shortness of breath and chest tightness. Denies cough Cardiovascular: Denies chest pain or edema. [] GI: Denies abdominal pain, nausea, vomiting, bloody stools or diarrhea. [] : Denies dysuria. [] Musculoskeletal: Denies back pain or joint pain. [] Integument: Denies rash. [] Neurologic: Denies headache, focal weakness or sensory changes. [] Psychiatric: Denies depression or anxiety. [] Heart Score: Risk Factors: Risk Factors: DM, Current or recent (<one month) smoker, HTN, HLP, family history of CAD, obesity. Risk Scores: Score 0 - 3: 2.5% MACE over next 6 weeks - Discharge Home Score 4 - 6: 20.3% MACE over next 6 weeks - Admit for Clinical Observation Score 7 - 10: 72.7% MACE over next 6 weeks - Early Invasive Strategies Allergies: Allergies: Allergies Coded Allergies Type Severity Reaction Last Updated Verified hydrocodone Allergy Intermediate Itching 09/13/17 Yes latex Allergy Intermediate Rash 09/13/17 Yes morphine Adverse Reaction Severe Chest Pain 09/13/17 Yes Physical Exam: PE: Constitutional: Well developed, well nourished, no acute distress, non-toxic appearance. [] HENT: Normocephalic, atraumatic, bilateral external ears normal, oropharynx moist, no oral exudates, nose normal. [] Eyes: PERRLA, EOMI, conjunctiva normal, no discharge. [] Neck: Normal range of motion, no tenderness, supple, no stridor. [] Cardiovascular:Heart rate regular rhythm, no murmur [] Lungs & Thorax: Bilateral breath sounds clear to auscultation [] Abdomen: Bowel sounds normal, soft, no tenderness, no masses, no pulsatile masses. [] Skin: Warm, dry, no erythema, no rash. [] Back: No tenderness, no CVA tenderness. [] Extremities: No tenderness, no cyanosis, no clubbing, ROM intact, no edema. [] Neurologic: Alert and oriented X 3, normal motor function, normal sensory function, no focal deficits noted. [] Psychologic: Affect normal, judgement normal, mood normal. [] EKG: EKG: [] Radiology/Procedures: Radiology/Procedures: []PROCEDURE: CHEST AP ONLY CHEST AP ONLY INDICATION: shortness of breath / Spl. Instructions: / History: . COMPARISON STUDY: 06/15/2019. FINDINGS: Lungs: Normal lung volume. No pulmonary mass or consolidation. The tracheobronchial tree and hilar structures are normal. Pleura: No pleural effusion or pneumothorax. Heart and Mediastinum: The cardiomediastinal silhouette is normal. The great vessels of the thorax are normal. Bones and Soft Tissues: The bones and soft tissues are within normal limits. IMPRESSION: No acute cardiopulmonary process. Electronically signed by: Markel Casey MD (05/28/2020 1:14 PM) [id number] DICTATED and SIGNED BY: MARKEL CASEY MD DATE: 05/28/20 [id number] 0 Course & Med Decision Making: Course & Med Decision Making Pertinent Labs and Imaging studies reviewed. (See chart for details) This is a 39-year-old female patient presenting to the ED today complaining of shortness of breath and chest tightness for 2 days, patient got tested for COVID-19 today and was positive, she came to the ED. Chest x-ray interpreted by radiologist as negative for any acute findings. Patient's O2 sats have been 98 to 100% on room air. Her lungs are clear. She is in no distress. She was reassured and discharged home. Follow-up with PCP next week. Provided return precautions. Libertad Disclaimer: Libertad Disclaimer: This electronic medical record was generated, in whole or in part, using a voice recognition dictation system. Departure Departure Impression: Primary Impression: Lab test positive for detection of COVID-19 virus Additional Impression: Shortness of breath Disposition: 01 DC HOME SELF CARE/HOMELESS Condition: STABLE Referrals: NO PCP (PCP) Follow-up next week Patient Instructions: Shortness of Breath, [id number] Additional Instructions: You were evaluated in the emergency room, your chest x-ray is negative for any acute findings. You were tested as an outpatient and reported you were positive for COVID-19. Quarantine yourself for 14 days. Take Tylenol/Motrin for pain or fever. Rest, push fluids, maintain good and hygiene, wear your mask, follow- up with your doctor next week. YOLANDA JONES DIMPLING MACHINE OPERATOR May 28, 2020 12:52
[2020-05-28 13:06] VITALS: BP 118/66
--- NOTE | 2020-05-28 13:17 | RAD ---
CHEST AP ONLY INDICATION: shortness of breath / Spl. Instructions: / History: . COMPARISON STUDY: 06/15/2019. FINDINGS: Lungs: Normal lung volume. No pulmonary mass or consolidation. The tracheobronchial tree and hilar structures are normal. Pleura: No pleural effusion or pneumothorax. Heart and Mediastinum: The cardiomediastinal silhouette is normal. The great vessels of the thorax are normal. Bones and Soft Tissues: The bones and soft tissues are within normal limits. IMPRESSION: No acute cardiopulmonary process. Electronically signed by: Giuseppe Regalado MD (05/28/2020 1:14 PM) [id number]
== END 2020-05-28 13:41 | disposition home or self-care (01) ==
LOC: ER 12:20
DX: U07.1 COVID-19 (principal); R06.02 Shortness of breath; Z91.040 Latex allergy status; Z88.5 Allergy status to narcotic agent
CPT/HCPCS: 71045; 99283

== ENCOUNTER 2020-06-12 09:49 | Emergency (ER) | payer BC ==
[~2020-06-12] VITALS: Ht 170.2 cm; Wt 106.4 kg
--- NOTE | 2020-06-12 10:08 | ED.ADGEN ---
Past Medical History Past Medical History: Other Additional Past Medical Histor: fibroids Past Surgical History: Cholecystectomy, , Hysterectomy, Tubal ligation, Other Additional Past Surgical Histo: D&C Smoking Status: Never Smoker Alcohol Use: None Drug Use: None General Adult EDM: Chief Complaint: CHEST PAIN HPI: HPI: Patient is a 39 year old female who arrives ambulatory to the emergency department complaining of left-sided chest pain. Patient reports roughly 1 to 2 hours prior to arrival she experienced chest pain at the upper left wall of her chest and states it radiated down her left arm. Patient also states she had a sensation that there was something sitting on her throat. The patient also reports to feeling short of air. Despite these complaints, the patient denies any substernal chest pain. She further denies any history of cough or fever however she states she has recovered from coronavirus and has been working since Tuesday. The patient is awake, alert and resting comfortably. She demonstrates no outward signs of being short of air and states that she is able to speak in full sentences without difficulty. Review of Systems: Review of Systems: Constitutional: Denies fever or chills. [] Eyes: Denies change in visual acuity. [] HENT: Denies nasal congestion or sore throat. [] Respiratory: Reports chest wall pain and shortness of breath. Patient denies cough. [] Cardiovascular: Denies chest pain or edema. [] GI: Denies abdominal pain, nausea, vomiting, bloody stools or diarrhea. [] : Denies dysuria. [] Musculoskeletal: Denies back pain or joint pain. [] Integument: Denies rash. [] Neurologic: Denies headache, focal weakness or sensory changes. [] Endocrine: Denies polyuria or polydipsia. [] Lymphatic: Denies swollen glands. [] Psychiatric: Denies depression or anxiety. [] Allergies: Allergies: Allergies Coded Allergies Type Severity Reaction Last Updated Verified hydrocodone Allergy Intermediate Itching 09/13/17 Yes latex Allergy Intermediate Rash 09/13/17 Yes morphine Adverse Reaction Severe Chest Pain 09/13/17 Yes Physical Exam: PE: Constitutional: Well developed, well nourished, no acute distress, non-toxic appearance. [] HENT: Normocephalic, atraumatic, bilateral external ears normal, oropharynx moist, no oral exudates, nose normal. [] Eyes: PERRLA, EOMI, conjunctiva normal, no discharge. [] Neck: Normal range of motion, no tenderness, supple, no stridor. [] Cardiovascular:Heart rate regular rhythm, no murmur [] Lungs & Thorax: Patient has tenderness to palpation of the upper chest wall which is reproducible. Bilateral breath sounds clear to auscultation [] Abdomen: Bowel sounds normal, soft, no tenderness, no masses, no pulsatile masses. [] Skin: Warm, dry, no erythema, no rash. [] Back: No tenderness, no CVA tenderness. [] Extremities: No tenderness, no cyanosis, no clubbing, ROM intact, no edema. [] Neurologic: Alert and oriented X 3, normal motor function, normal sensory function, no focal deficits noted. [] Psychologic: Affect normal, judgement normal, mood normal. [] EKG: EKG: EKG was obtained at 0956 hrs. EKG revealed normal sinus rhythm with a ventricular rate of 83 bpm. Intervals are normal and there are no signs of ST-T wave changes to denote ischemia. [] Heart Score: HEART Score for Chest Pain: HEART Score for Chest Pain Response (Comments) Value History Slighlty/Non-Suspicious 0 ECG Normal 0 Age < 45 0 Risk Factors No Risk Factors 0 Troponin < Normal Limit 0 Total 0 Risk Factors: Risk Factors: DM, Current or recent (<one month) smoker, HTN, HLP, family history of CAD, obesity. Risk Scores: Score 0 - 3: 2.5% MACE over next 6 weeks - Discharge Home Score 4 - 6: 20.3% MACE over next 6 weeks - Admit for Clinical Observation Score 7 - 10: 72.7% MACE over next 6 weeks - Early Invasive Strategies Radiology/Procedures: Radiology/Procedures: [] Impression: [id number] [place] [address] IMAGING REPORT Signed PATIENT: JEFFREY TEE ACCOUNT: [id number] : 1980 LOCATION: ER AGE: 39 SEX: F EXAM STATUS: REG ER ORD. PHYSICIAN: RICKEY OGLESBY DO REASON: PAIN PROCEDURE: CHEST PA & LATERAL XR CHEST 2V 06/12/2020 10:09 AM INDICATION: Pain COMPARISON: 05/28/2020 TECHNIQUE: Frontal and lateral views of the chest provided. FINDINGS: The cardiomediastinal silhouette is within normal limits. Lungs are clear. There are no significant pleural effusions. There is no pulmonary vascular congestion. No pneumothorax. No suspicious osseous abnormality. Cholecystectomy changes are present. IMPRESSION: There is no acute cardiopulmonary process. Electronically signed by: Mario Alberto Koroma MD (06/12/2020 10:21 AM) [facility] DICTATED and SIGNED BY: MARIO ALBERTO KOROMA MD DATE: 06/12/20 [id number] 0 Course & Med Decision Making: Course & Med Decision Making Pertinent Labs and Imaging studies reviewed. (See chart for details) [The patient remains awake, alert and in no acute distress. Patient does qualify her shortness of air is being related to any exertion. I do believe the patient is still in the acute recovery stages after having had Covid. She continues to deny any substernal chest pain. She also states that when she was diagnosed with having coronavirus she was never hypoxic. I have asked the patient return should she develop any worsening shortness of air with exertion or new shortness of air at rest. Have also asked that she return with any new substernal chest pain or fevers. The patient understands and has agreed to do so. She is nontoxic-appearing and resting comfortably. She is stable for disch arge.] Marleenon Disclaimer: Libertad Disclaimer: This electronic medical record was generated, in whole or in part, using a voice recognition dictation system. Departure Departure Impression: Primary Impression: Musculoskeletal chest pain Additional Impression: History of 2019 novel coronavirus disease (COVID-19) Condition: STABLE Referrals: NO PCP (PCP) Patient Instructions: Chest Pain (Nonspecific), Pleurisy Scripts Cyclobenzaprine Hcl (CYCLOBENZAPRINE HCL) 5 Mg Tablet 1 TAB PO TID for 5 Days, #15 TAB Prov: RICKEY OGLESBY DO 06/12/20 Albuterol Sulfate (VENTOLIN HFA INHALER) 18 Gm Hfa.aer.ad 2 PUFF INH QID for FOR ASTHMA, #1 INHALER 0 Refills Prov: RICKEY OGLESBY DO 06/12/20 Problem Qualifiers RICKEY OGLESBY DO Jun 12, 2020 10:08
--- NOTE | 2020-06-12 10:24 | RAD ---
XR CHEST 2V 06/12/2020 10:09 AM INDICATION: Pain COMPARISON: 05/28/2020 TECHNIQUE: Frontal and lateral views of the chest provided. FINDINGS: The cardiomediastinal silhouette is within normal limits. Lungs are clear. There are no significant pleural effusions. There is no pulmonary vascular congestion. No pneumothora x. No suspicious osseous abnormality. Cholecystectomy changes are present. IMPRESSION: There is no acute cardiopulmonary process. Electronically signed by: Jade Koroma MD (06/12/2020 10:21 AM) ADEOLA
[2020-06-12 10:30] VITALS: BP 125/71
[2020-06-12] MEDS ORDERED: VENTOLIN HFA18 GM INH (10:30)
[2020-06-12] MEDS ORDERED: CYCL5TAB PO (10:30)
== END 2020-06-12 10:36 | disposition home or self-care (01) ==
LOC: ER 09:49
DX: R07.89 Other chest pain (principal); R06.02 Shortness of breath; R20.2 Paresthesia of skin; Z90.49 Acquired absence of other specified parts of digestive tract; Z98.51 Tubal ligation status; Z90.710 Acquired absence of both cervix and uterus; Z98.890 Other specified postprocedural states; Z88.5 Allergy status to narcotic agent; Z88.6 Allergy status to analgesic agent; Z91.040 Latex allergy status
CPT/HCPCS: 71046; 93005; 99283

== ENCOUNTER 2020-07-10 21:30 | Emergency (ER) | payer BC ==
[~2020-07-10] VITALS: Ht 170.2 cm; Wt 109.1 kg
[~2020-07-10 21:30] MED LIST changes: +CYCL5TAB PO; +VENTOLIN HFA18 GM INH
--- NOTE | 2020-07-10 21:38 | ED.ADGEN ---
Past Medical History Past Medical History: Other Additional Past Medical Histor: fibroids Past Surgical History: Cholecystectomy, , Hysterectomy, Tubal ligation, Other Additional Past Surgical Histo: D&C Smoking Status: Never Smoker Alcohol Use: None Drug Use: None General Adult EDM: Chief Complaint: CHEST PAIN HPI: HPI: Patient is a 39 year old female coming in with left-sided chest pain that she described as sharp. Says the pain is worse with taking a deep breath and with palpation. Patient was laying down the pain started about 1 hour prior to arrival. Patient says she has had similar pain in the past about 1 year ago she was admitted here for the same problem but does not remember what the diagnosis was. Patient states she has had headaches, and recently had a sore throat with a sensation of there is a "lump in her throat.. Denies any fevers, cough, vomiting, diarrhea, lower extremity edema. Denies any pain anywhere else. Denies any tobacco, alcohol, drug use. Patient has family history of cardiac disease in her mother. She also states she has been under increased stress recently. Per chart review patient was seen here for exact same symptoms 4 weeks ago. Review of Systems: Review of Systems: All other systems within normal limits except for as noted in the HPI Current Medications: Current Medications Medications (Trade) Dose Ordered Sig/Bernie Start Time Stop Time Status Last Admin Dose Admin Aspirin (Aspirin Chewable) 324 mg 1X ONCE 07/10/20 21:45 07/10/20 21:46 DC 07/10/20 21:56 324 MG Famotidine (Pepcid Vial) 20 mg 1X ONCE 07/11/20 00:30 07/11/20 00:31 DC Ketorolac Tromethamine (Toradol 15mg Vial) 15 mg 1X ONCE 07/10/20 22:00 07/10/20 22:01 DC 07/10/20 21:56 15 MG Lorazepam (Ativan Inj) 1 mg 1X ONCE 07/10/20 23:30 07/10/20 23:31 DC 07/11/20 00:20 1 MG Multi-Ingredient Mouthwash/Gargle (Gi Cocktail) 20 ml 1X ONCE 07/10/20 23:45 07/10/20 23:46 DC 07/10/20 23:39 20 ML Sodium Chloride 1,000 ml @ 1,000 mls/hr Q1H 07/10/20 21:45 07/10/20 22:44 DC 07/10/20 21:55 1,000 MLS/HR Allergies: Allergies: Allergies Coded Allergies Type Severity Reaction Last Updated Verified hydrocodone Allergy Intermediate Itching 09/13/17 Yes latex Allergy Intermediate Rash 09/13/17 Yes morphine Adverse Reaction Severe Chest Pain 09/13/17 Yes Physical Exam: PE: Constitutional: Well developed, well nourished, no acute distress, non-toxic appearance. [] HENT: Normocephalic, atraumatic, bilateral external ears normal, nose normal. [] Eyes: PERRLA, conjunctiva normal, no discharge. [] Neck: No rigidity, supple, no stridor. [] Cardiovascular: Regular rate and rhythm, brisk cap refill, tenderness to left anterior chest wall [] Lungs & Thorax: Non labored symmetric respirations, no tachypnea or respiratory distress [] Abdomen: Soft, nondistended. Skin: Warm, dry, no erythema, no rash. [] Back: No tenderness, no CVA tenderness. [] Extremities: No deformities, range of motion grossly intact, no lower extremity edema [] Neurologic: Alert and oriented X 3, no focal deficits noted. [] Psychologic: Affect normal, judgement normal, mood normal. [] Current Patient Data: Labs: Laboratory Tests Test 07/10/20 21:43 07/10/20 21:53 07/10/20 21:59 07/11/20 00:15 White Blood Count 11.9 x10^3/uL (4.0-11.0) H Red Blood Count 4.53 x10^6/uL (3.50-5.40) Hemoglobin 13.2 g/dL (12.0-15.5) Hematocrit 39.5 % (36.0-47.0) Mean Corpuscular Volume 87 fL (79-100) Mean Corpuscular Hemoglobin 29 pg (25-35) Mean Corpuscular Hemoglobin Concent 34 g/dL (31-37) Red Cell Distribution Width 14.8 % (11.5-14.5) H Platelet Count 348 x10^3/uL (140-400) Neutrophils (%) (Auto) 62 % (31-73) Lymphocytes (%) (Auto) 31 % (24-48) Monocytes (%) (Auto) 5 % (0-9) Eosinophils (%) (Auto) 1 % (0-3) Basophils (%) (Auto) 1 % (0-3) Neutrophils # (Auto) 7.3 x10^3/uL (1.8-7.7) Lymphocytes # (Auto) 3.7 x10^3/uL (1.0-4.8) Monocytes # (Auto) 0.6 x10^3/uL (0.0-1.1) Eosinophils # (Auto) 0.1 x10^3/uL (0.0-0.7) Basophils # (Auto) 0.1 x10^3/uL (0.0-0.2) D-Dimer (Sarah Beth) < 0.27 ug/mlFEU Sodium Level 140 mmol/L (136-145) Potassium Level 3.5 mmol/L (3.5-5.1) Chloride Level 105 mmol/L (98-107) Carbon Dioxide Level 27 mmol/L (21-32) Anion Gap 8 (6-14) Blood Urea Nitrogen 9 mg/dL (7-20) Creatinine 1.0 mg/dL (0.6-1.0) Estimated GFR (Cockcroft-Gault) 75.1 BUN/Creatinine Ratio 9 (6-20) Glucose Level 96 mg/dL (70-99) Calcium Level 8.6 mg/dL (8.5-10.1) Total Bilirubin 0.3 mg/dL (0.2-1.0) Aspartate Amino Transferase (AST) 16 U/L (15-37) Alanine Aminotransferase (ALT) 26 U/L (14-59) Alkaline Phosphatase 67 U/L (46-116) Troponin I Quantitative < 0.017 ng/mL (0.000-0.055) < 0.017 ng/mL (0.000-0.055) BY-Rpw-O-Type Natriuretic Peptide 16 pg/mL (0-124) Total Protein 7.6 g/dL (6.4-8.2) Albumin 3.2 g/dL (3.4-5.0) L Albumin/Globulin Ratio 0.7 (1.0-1.7) L Urine Collection Type Unknown Urine Color Yellow Urine Clarity Clear Urine pH 6.0 (<5.0-8.0) Urine Specific [place] >=1.030 (1.000-1.030) Urine Protein Negative mg/dL (NEG-TRACE) Urine Glucose (UA) Negative mg/dL (NEG) Urine Ketones (Stick) Negative mg/dL (NEG) Urine Blood Negative (NEG) Urine Nitrite Negative (NEG) Urine Bilirubin Negative (NEG) Urine Urobilinogen Dipstick 0.2 mg/dL (0.2 mg/dL) Urine Leukocyte Esterase Negative (NEG) Urine RBC 0 /HPF (0-2) Urine WBC 1-4 /HPF (0-4) Urine Squamous Epithelial Cells Mod /LPF Urine Bacteria Moderate /HPF (0-FEW) Urine Mucus Mod /LPF Urine Opiates Screen Neg (NEG) Urine Methadone Screen Neg (NEG) Urine Barbiturates Neg (NEG) Urine Phencyclidine Screen Neg (NEG) Urine Amphetamine/Methamphetamine Neg (NEG) Urine Benzodiazepines Screen Neg (NEG) Urine Cocaine Screen Neg (NEG) Urine Cannabinoids Screen Neg (NEG) Urine Ethyl Alcohol Neg (NEG) POC Urine HCG, Qualitative Hcg negative (Negative) Laboratory Tests 07/10/20 21:43 Laboratory Tests 07/10/20 21:43 Vital Signs: Vital Signs Date Time Temp Pulse Resp B/P (MAP) Pulse Ox O2 Delivery O2 Flow Rate FiO2 07/10/20 21:31 98.2 86 18 141/72 (95) 100 Room Air 98.2 EKG: EKG: Sinus rhythm, no ST elevation or depression, normal axis, heart rate 85 bpm, no ectopy [] Heart Score: Risk Factors: Risk Factors: DM, Current or recent (<one month) smoker, HTN, HLP, family history of CAD, obesity. Risk Scores: Score 0 - 3: 2.5% MACE over next 6 weeks - Discharge Home Score 4 - 6: 20.3% MACE over next 6 weeks - Admit for Clinical Observation Score 7 - 10: 72.7% MACE over next 6 weeks - Early Invasive Strategies Radiology/Procedures: Radiology/Procedures: XR CHEST 2V INDICATION: Reason: chest pain / Spl. Instructions: / History: . COMPARISON STUDY: 06/12/2020. FINDINGS: Lungs: Normal lung volume. No pulmonary mass or consolidation. The tracheobronchial tree and hilar structures are normal. Pleura: No pleural effusion or pneumothorax. Heart and Mediastinum: The cardiomediastinal silhouette is normal. The great vessels of the thorax are normal. Bones and Soft Tissues: The bones and soft tissues are within normal limits. IMPRESSION: No acute cardiopulmonary process. [] Course & Med Decision Making: Course & Med Decision Making Pertinent Labs and Imaging studies reviewed. (See chart for details) [] Dragon Disclaimer: Dragon Disclaimer: This electronic medical record was generated, in whole or in part, using a voice recognition dictation system. Departure Departure Impression: Primary Impression: Chest pain of uncertain etiology Additional Impression: Reflux gastritis Disposition: 01 DC HOME SELF CARE/HOMELESS Condition: STABLE Referrals: TATYANA DELACRUZ (PCP) Patient Instructions: Diet for Gastroesophageal Reflux Disease, Adult Scripts Famotidine (FAMOTIDINE) 40 Mg Tablet 40 MG PO HS for antacid for 30 Days, #30 TAB Prov: DEVAN DICKSON MD 07/11/20 Problem Qualifiers DEVAN DICKSON MD Jul 10, 2020 21:38
[2020-07-10] MEDS ORDERED: IV NORMAL SALINE 1000ML BAG 1,000 ML IV SCH (21:45)
[2020-07-10] MEDS ORDERED: ASPIRIN CHEWABLE 81 MG TABLET. PO ONE (21:45)
[2020-07-10 21:51] LABS: BASO # 0.1 x10^3/uL (0.0-0.2); BASO % 1 % (0-3); EOS # 0.1 x10^3/uL (0.0-0.7); EOS % 1 % (0-3); HEMATOCRIT 39.5 % (36.0-47.0); HEMOGLOBIN 13.2 g/dL (12.0-15.5); LYMPH # 3.7 x10^3/uL (1.0-4.8); LYMPH % 31 % (24-48); MEAN CORPUSCULAR HEMOGLOBIN 29 pg (25-35); MEAN CORPUSCULAR HGB CONC 34 g/dL (31-37); MEAN CORPUSCULAR VOLUME 87 fL (79-100); MONO # 0.6 x10^3/uL (0.0-1.1); MONO % 5 % (0-9); NEUT # 7.3 x10^3/uL (1.8-7.7); NEUT % 62 % (31-73); PLATELET COUNT 348 x10^3/uL (140-400); RED BLOOD COUNT 4.53 x10^6/uL (3.50-5.40); RED CELL DISTRIBUTION WIDTH 14.8 % (11.5-14.5); WHITE BLOOD COUNT 11.9 x10^3/uL (4.0-11.0)
[2020-07-10] MEDS ORDERED: KETOROLAC 15 MG/ML VIAL. IVP ONE (22:00)
[2020-07-10 22:01] LABS: CALCIUM 8.6 mg/dL (8.5-10.1); GFR 75.1; POTASSIUM 3.5 mmol/L (3.5-5.1)
[2020-07-10 22:03] LABS: BILIRUBIN,URINE NEGATIVE (NEG); CLARITY,URINE CLEAR; COLOR,URINE YELLOW; NITRITE,URINE NEGATIVE (NEG); PROTEIN,URINE NEGATIVE (NEG-TRACE); UROBILINOGEN,URINE 0.2 mg/dL (0.2 mg/dL)
[2020-07-10 22:07] LABS: ALBUMIN 3.2 g/dL (3.4-5.0); ALBUMIN/GLOBULIN RATIO 0.7 (1.0-1.7); TOTAL BILIRUBIN 0.3 mg/dL (0.2-1.0); TOTAL PROTEIN 7.6 g/dL (6.4-8.2)
[2020-07-10 22:09] LABS: BACTERIA,URINE MODERATE /HPF (0-FEW); RBC,URINE 0 /HPF (0-2)
[2020-07-10 22:10] LABS: BARBITURATES NEG (NEG); BENZODIAZEPINES NEG (NEG); CANNABINOIDS NEG (NEG); COCAINE NEG (NEG); METHADONE NEG (NEG); OPIATES NEG (NEG); PHENCYCLIDINE NEG (NEG)
[2020-07-10 22:11] LABS: AMPHETAMINE/METHAMPHETAMINE NEG (NEG)
--- NOTE | 2020-07-10 22:28 | RAD ---
XR CHEST 2V INDICATION: Reason: chest pain / Spl. Instructions: / History: . COMPARISON STUDY: 06/12/2020. FINDINGS: Lungs: Normal lung volume. No pulmonary mass or consolidation. The tracheobronchial tree and hilar st ructures are normal. Pleura: No pleural effusion or pneumothorax. Heart and Mediastinum: The cardiomediastinal silhouette is normal. The great vessels of the thorax ar e normal. Bones and Soft Tissues: The bones and soft tissues are within normal limits. IMPRESSION: No acute cardiopulmonary process. Electronically signed by: Giuseppe Regalado MD (07/10/2020 10:25 PM) [facility]
[2020-07-10] MEDS ORDERED: LIDO:MAALOX 1:1 20 ML SINGLE DOSE. SWSW ONE (23:45)
[2020-07-11] MEDS ORDERED: FAMOTIDINE 20 MG/2 ML VIAL IVP ONE (00:30)
[2020-07-11 01:03] VITALS: BP 104/67
[2020-07-11] MEDS ORDERED: FAMO40TA4 PO (01:07)
== END 2020-07-11 01:39 | disposition home or self-care (01) ==
LOC: ER 21:30
DX: K29.60 Other gastritis without bleeding (principal); R07.89 Other chest pain; R51.9 Headache, unspecified; Z90.49 Acquired absence of other specified parts of digestive tract; Z90.710 Acquired absence of both cervix and uterus; Z98.51 Tubal ligation status; Z98.890 Other specified postprocedural states; Z88.5 Allergy status to narcotic agent; Z88.6 Allergy status to analgesic agent; Z91.040 Latex allergy status
CPT/HCPCS: 36415; 71046; 80053; 80307; 81001; 81025; 83880; 84484; 85025; 85379; 87086; 96361; 96374; 96375; 99285; J1885; J2060; J3490; J7030; 93005

== ENCOUNTER 2020-07-21 02:23 | Emergency (ER) | payer BC ==
[~2020-07-21] VITALS: Ht 170.2 cm; Wt 111.4 kg
[~2020-07-21 02:23] MED LIST changes: +FAMO40TA4 PO
[2020-07-21 03:18] LABS: MONONUCLEOSIS PATIENT NEGATIVE (NEGATIVE)
--- NOTE | 2020-07-21 03:18 | PHYS DOC ---
Past Medical History Past Medical History: Other Additional Past Medical Histor: fibroids Past Surgical History: Cholecystectomy, , Hysterectomy, Tubal ligation, Other Additional Past Surgical Histo: D&C Smoking Status: Never Smoker Alcohol Use: None Drug Use: None General Adult EDM: Chief Complaint: CHEST WALL PAIN HPI: HPI: Patient is a 39 year old female who presents today with chest pain and throat fullness, and headache. She states for the past 2-3 wks she has had a constant feeling of chest heaviness and throat fullness. She states it is worse at night and gets better during the day. She has been seen multiple times in the ED for this same issue and her CXR, EKGs, labs have come back normal. She saw her PCP on Tuesday and was given ciprofloxacin, ranitidine, and omeprazole that she has been taking as prescribed but that does not seem to be helping with her symptoms. She rates her pain +9/10 and states nothing she has found will make the pain better. She does state she has been under a lot of stress lately and thinks that could be contributing to her symptoms. She has no other complaints at this time. Review of Systems: Review of Systems: Constitutional: Denies fever or chills Eyes: Denies redness or eye pain HENT: Denies nasal congestion. States she has had swelling of her tonsils and throat/neck fullness. Respiratory: Denies cough or shortness of breath Cardiovascular: States she has had chest pain/pressure for the past 2 wks or palpitations GI: Denies abdominal pain, States shes had daily nausea, or vomiting : Denies dysuria or hematuria Musculoskeletal: Denies back pain or joint pain Integument: Denies rash or skin lesions Neurologic: Denies headache, focal weakness or sensory changes Complete systems were reviewed and found to be within normal limits, except as documented in this note. Heart Score: HEART Score for Chest Pain: HEART Score for Chest Pain Response (Comments) Value History Slighlty/Non-Suspicious 0 ECG Normal 0 Age < 45 0 Risk Factors No Risk Factors 0 Troponin < Normal Limit 0 Total 0 Risk Factors: Risk Factors: DM, Current or recent (<one month) smoker, HTN, HLP, family history of CAD, obesity. Risk Scores: Score 0 - 3: 2.5% MACE over next 6 weeks - Discharge Home Score 4 - 6: 20.3% MACE over next 6 weeks - Admit for Clinical Observation Score 7 - 10: 72.7% MACE over next 6 weeks - Early Invasive Strategies Family History: Family History: mother: diabetes Allergies: Allergies: Allergies Coded Allergies Type Severity Reaction Last Updated Verified hydrocodone Allergy Intermediate Itching 09/13/17 Yes latex Allergy Intermediate Rash 09/13/17 Yes morphine Adverse Reaction Severe Chest Pain 09/13/17 Yes Physical Exam: PE: Constitutional: Well developed, well nourished, no acute distress, non-toxic appearance HENT: Normocephalic, atraumatic Eyes: PERRL, EOMI, conjunctiva normal, no discharge Neck: Normal range of motion, no tenderness, supple, Palpable enlarged LNs on the left side of her neck Lungs & Thorax: No respiratory distress, equal chest rise and fall Abdomen: Soft, no tenderness Skin: Warm, dry, no erythema, no rash, prominent hair thinning Back: No tenderness, no CVA tenderness Extremities: No tenderness, ROM intact, no edema Neurologic: Alert and oriented X 3, normal motor function, normal sensory function, no focal deficits noted Psychologic: Affect normal, judgment normal Current Patient Data: Vital Signs: Vital Signs Date Time Temp Pulse Resp B/P (MAP) Pulse Ox O2 Delivery O2 Flow Rate FiO2 07/21/20 02:26 99.0 96 14 148/84 (105) 97 Room Air 99.0 EKG: EKG: Normal sinus rhythm at [address] elevation. QRS 86, QT/QTc 348/446. Radiology/Procedures: Radiology/Procedures: [] Course & Med Decision Making: Course & Med Decision Making Pertinent Labs and Imaging studies reviewed. (See chart for details) Patient is a 39 yo female presenting today for chest pain, headache, and throat fullness. Her EKG showed no ST elevation, her labs were unremarkable, and her chest xray did not show any signs of infection. She is currently still taking her antibiotics, and antiacids that her PCP gave her on Tuesday. She was given a dose of dexamethasone for possible signs of viral infection on her CXR, and ketoralac for pain. I also gave her some ativan that can be taken PRN for her anxiety. We discussed the importance of not taking this medication before driving. She has close follow up with her PCP and already has an appointment sc heduled for next week. She was agreeable with this plan and had no further questions. Patient stable for discharge with outpatient follow-up with PCP. Discussed findings and plan with patient, who acknowledges understanding and agreement. Libertad Disclaimer: Libertad Disclaimer: This electronic medical record was generated, in whole or in part, using a voice recognition dictation system. Departure Departure Impression: Primary Impression: Headache Qualified Codes: R51.9 - Headache, unspecified Additional Impressions: Atypical chest pain Pharyngitis Qualified Codes: J02.9 - Acute pharyngitis, unspecified Anxiety Disposition: 01 DC HOME SELF CARE/HOMELESS Condition: STABLE Referrals: TATYANA DELACRUZ (PCP) Patient Instructions: Anxiety and Panic Attacks, Dzcd-ea-[id number], Chest Pain (Nonspecific), Ljre-eh-Wrxs, Headache, FAQs, Viral and Bacterial Pharyngitis, Swpd-by-Leee Scripts Lorazepam (ATIVAN) 0.5 Mg Tablet 0.5 MG PO TID PRN for ANXIETY / AGITATION, #6 TAB Prov: ALEXIS SOSA DO 07/21/20 ALEXIS SOSA DO Jul 21, 2020 03:18
[2020-07-21] MEDS ORDERED: KETOROLAC 30 MG/ML VIAL. IM ONE (03:30)
[2020-07-21 04:00] VITALS: BP 128/68
[2020-07-21] MEDS ORDERED: LORA0.5T96 PO (04:28)
[2020-07-21] MEDS ORDERED: KETOROLAC 15 MG/ML VIAL. IVP ONE (04:30)
[2020-07-21] MEDS ORDERED: DEXAMETHASONE SOD PHOS 4 MG/ML VIAL IVP ONE (04:30)
--- NOTE | 2020-07-21 04:34 | EKG ---
[facility] [address] [place] [address] Test Date: 2020-07-21 Test Time: 02:31:43 Pat Name: JEFFREY TEE Department: Room: Gender: F Clinical Esthetician: : 1980 Requested By: ALEXIS SOSA Order Number: [id number] Reading MD: Measurements Intervals [place] Rate: 97 P: 58 OK: 142 QRS: 14 QRSD: 86 T: 34 QT: 348 QTc: 446 Interpretive Statements SINUS RHYTHM OTHERWISE NORMAL ECG RI6.02 No previous ECG available for comparison
--- NOTE | 2020-07-21 06:39 | RAD ---
EXAM: XR NECK SOFT TISSUE, XR CHEST 2V 07/21/2020 3:21 AM CLINICAL INDICATION: Cough COMPARISON: Chest radiograph 07/10/2020 TECHNIQUE: PA and lateral views of the chest. AP and lateral view of the neck FINDINGS: Chest: The heart and mediastinum are normal. Lungs are well-expanded and clear. No consolidation, p leural effusion, or pneumothorax. Pulmonary vascularity is normal. The thoracic skeleton is intact. Neck: The airway is patent. Epiglottis and aryepiglottic folds are normal. Prevertebral soft tissues normal. Visualized portion of the chest and cervical spine are unremarkable. IMPRESSION: 1. No acute cardiopulmonary abnormality. 2. No acute abnormality of the neck. Electronically signed by: Mariia Mackay MD (07/21/2020 6:37 AM) [id number]
== END 2020-07-21 04:56 | disposition home or self-care (01) ==
LOC: ER 02:23
DX: R51.9 Headache, unspecified (principal); R07.89 Other chest pain; J02.9 Acute pharyngitis, unspecified; F41.9 Anxiety disorder, unspecified; Z88.5 Allergy status to narcotic agent; Z91.040 Latex allergy status
CPT/HCPCS: 70360; 71046; 86308; 87070; 87880; 93005; 96374; 96375; 99285; J1100; J1885

== ENCOUNTER 2020-08-30 07:49 | Emergency (ER) | payer BC ==
[~2020-08-30] VITALS: Ht 170.2 cm; Wt 109.0 kg
[~2020-08-30 07:49] MED LIST changes: +LORA0.5T96 PO
--- NOTE | 2020-08-30 08:35 | PHYS DOC ---
Past Medical History Past Medical History: Other Additional Past Medical Histor: fibroids Past Surgical History: Cholecystectomy, , Hysterectomy, Tubal ligation, Other Additional Past Surgical Histo: D&C Smoking Status: Never Smoker Alcohol Use: None Drug Use: None General Adult EDM: Chief Complaint: FLU SYMPTOM HPI: HPI: 40-year-old female presents to the ED with complaints of body aches, nausea and weakness for the past two days. States she's had these symptoms intermittently ever since she had Covid in May 2020. Her influenza vaccine is not up-to-date. Also reports a chronic sore throat that she tested negative for strep at [facility] few weeks ago. On ROS reports increased urinary frequency and dysuria. Review of Systems: Review of Systems: Constitutional: Denies fever or chills. [] Eyes: Denies change in visual acuity or eye discharge HENT: Denies nasal congestion or increased work of breathing or earache Respiratory: Denies cough or shortness of breath. [] Cardiovascular: Denies chest pain or edema. [] GI: Denies abdominal pain, nausea, vomiting, bloody stools or diarrhea. [] : Denies hematuria or vaginal bleeding Musculoskeletal: Denies back pain or joint pain. [] Integument: Denies rash or diaphoresis Neurologic: Denies headache, neck stiffness, focal weakness or sensory changes. [] Endocrine: Denies polyuria or polydipsia. [] Lymphatic: Denies swollen glands. [] Psychiatric: Denies depression or anxiety. [] Heart Score: Risk Factors: Risk Factors: DM, Current or recent (<one month) smoker, HTN, HLP, family history of CAD, obesity. Risk Scores: Score 0 - 3: 2.5% MACE over next 6 weeks - Discharge Home Score 4 - 6: 20.3% MACE over next 6 weeks - Admit for Clinical Observation Score 7 - 10: 72.7% MACE over next 6 weeks - Early Invasive Strategies Allergies: Allergies: Allergies Coded Allergies Type Severity Reaction Last Updated Verified hydrocodone Allergy Intermediate Itching 09/13/17 Yes latex Allergy Intermediate Rash 09/13/17 Yes morphine Adverse Reaction Severe Chest Pain 09/13/17 Yes Physical Exam: PE: Constitutional: Well developed, well nourished, no acute distress, non-toxic appearance. HENT: Normocephalic, atraumatic, moist mucous membranes, enlarged tonsils but no erythema or exudates, no palatal petechial rash, Eyes: EOMI, conjunctiva normal, no discharge. Neck: Normal range of motion, supple, Cardiovascular: S1/2 present, regular rhythm Lungs & Thorax: Speaking in full sentences, bilateral equal chest rise, no tachypnea or increased work of breathing Abdomen: soft, no tenderness, Skin: Warm, dry, no erythema, no rash. [] Back: No tenderness, no CVA tenderness. [] Extremities: No tenderness, no cyanosis, no lower extremity edema Neurologic: Alert and oriented X 3, normal motor function, normal sensory function, no focal deficits noted. [] Psychologic: Affect normal, judgement normal, mood normal. [] EKG: EKG: [] Radiology/Procedures: Radiology/Procedures: [] Course & Med Decision Making: Course & Med Decision Making Pertinent Labs and Imaging studies reviewed. (See chart for details) Concern for likely viral process. Patient is very well-appearing. Symptoms could possibly be chronic from covid. Patient hemodynamically stable. Will discharge home with strict ED return precautions were given for chest pain, increased work of breathing or stroke symptoms. Encouraged urgent outpatient follow-up with PMD. Life-threatening processes were considered but are low suspicion at this time, given history, physical exam and ED workup. Pt was educated on all prescription medications and adverse effects. All patient's questions were answered and pt was stable at time of discharge. Life/limb-threatening differential includes but is not limited to, acute coronary syndrome/myocardial infarction, Boerhaave's, DKA, intracranial hemorrhage, ischemic bowel, meningitis, sepsis, surgical abdomen (AAA), toxidrome (drug over/overdose/carbon monoxide, etc), ovarian/testicular torsion, trauma, or infection/sepsis. I spoken with the patient and her caregivers. I explained the patient's condition, diagnoses and treatment plan based on the information available to me at this time. I have answered the patient and her caregiver's questions and addressed any concerns. The patient and her caregivers have a good understanding of patient's diagnosis, condition and treatment plan as can be expected at this point. Vital signs have been stable. Patient's condition is stable and appropriate for discharge from the emergency department. Patient will pursue further outpatient evaluation with primary care physician or other designated or consulting physician as outlined in the discharge instructions. The patient and/or caregivers are agreeable to this plan of care and follow-up instructions have been explained in detail. The patient and/or caregivers have received these instructions in written form and have expressed an understanding of the discharge instructions. The patient and/or caregivers are aware that any significant change of condition or worsening of symptoms should prompt immediate return to this or the closest emergency department or call to 911. Libertad Disclaimer: Libertad Disclaimer: This electronic medical record was generated, in whole or in part, using a voice recognition dictation system. Departure Departure Impression: Primary Impression: Flu-like symptoms Additional Impressions: Nausea Weakness Disposition: 01 DC HOME SELF CARE/HOMELESS Condition: STABLE Referrals: TATYANA DELACRUZ (PCP) within 5-7 days for check up Patient Instructions: Nausea, Adult, Weakness Additional Instructions: EMERGENCY DEPARTMENT GENERAL DISCHARGE INSTRUCTIONS Thank you for coming to [facility] Emergency Department (ED) today and trusting us with you care. We trust that you had a positive experience in our Emergency Department. If you wish to speak to the department management, you may call the Director at [phone]. YOUR FOLLOW UP INSTRUCTIONS ARE FOLLOWS: 1. Do you have a private Doctor? If you do not have a private doctor, please ask for a resource list of physicians or clinics that may be able to assist you with follow up care. 2. The Emergency Physicain has interpreted your x-rays. The X-Ray specialist will also review them. If there is a change in the findings, you will be notified in 48 hours when at all possible. 3. A lab test or culture has been done, your results will be reviewed and you will be notified if you need a change in treatment. ADDITIONAL INSTRUCTIONS AND INFORMATION: 1. Your care today has been supervised by a physician who is specially trained in emergency care. Many problems require more than one evaluation for a complete diagnosis and treatment. We recommend that you schedule your follow up appointment as recommended to ensure complete treatment of you illness or injury. If you are unable to obtain follow up care and continue to have a problem, or if your condition worsens, we recommend that you return to the ED. 2. We are not able to safely determine your condition over the phone nor are we able to give sound medical advice over the phone. For these safety reasons, if you call for medical advice we will ask you to come to the ED for further evaluation. 3. If you have any questions regarding these discharge instructions please call the ED at [phone]. SAFETY INFORMATION: In the interest of safety, wellness, and injury prevention; we encourage you to wear your sealbelt, if you smoke; quite smoking, and we encourage family to use a protective helmet for bicycling and other sporting events that present an increased risk for head injury. IF YOUR SYMPTOMS WORSEN OR NEW SYMPTOMS DEVELOP, OR YOU HAVE CONCERNS ABOUT YOUR CONDITION; OR IF YOUR CONDITION WORSENS WHILE YOU ARE WAITING FOR YOUR FOLLOW UP APPOINTMENT; EITHER CONTACT YOUR PRIMARY CARE DOCTOR, THE PHYSICIAN WHOSE NAME AND NUMBER YOU WERE GIVEN, OR RETURN TO THE ED IMMEDIATELY. Scripts Ondansetron (ONDANSETRON ODT) 4 Mg Tab.rapdis 1 TAB PO PRN Q6-8HRS, #20 TAB Prov: LOC KAMARA DO 08/30/20 LOC KAMARA DO Aug 30, 2020 08:35
[2020-08-30 08:52] LABS: BILIRUBIN,URINE NEGATIVE (NEG); CLARITY,URINE CLEAR; COLOR,URINE YELLOW; NITRITE,URINE NEGATIVE (NEG); PROTEIN,URINE NEGATIVE (NEG-TRACE); UROBILINOGEN,URINE 0.2 mg/dL (0.2 mg/dL)
[2020-08-30 09:14] LABS: BACTERIA,URINE FEW /HPF (0-FEW); RBC,URINE 0 /HPF (0-2); WBC,URINE OCC /HPF (0-4)
[2020-08-30 09:36] LABS: MONONUCLEOSIS PATIENT NEGATIVE (NEGATIVE)
[2020-08-30 09:39] LABS: INFLUENZA A PATIENT NEGATIVE (NEGATIVE); INFLUENZA B PATIENT NEGATIVE (NEGATIVE)
[2020-08-30] MEDS ORDERED: ONDA4TAB12 PO (11:00)
[2020-08-30 11:30] VITALS: BP 108/64
== END 2020-08-30 11:36 | disposition home or self-care (01) ==
LOC: ER 07:49
DX: R11.0 Nausea (principal); R53.1 Weakness; M79.10 Myalgia, unspecified site; Z90.49 Acquired absence of other specified parts of digestive tract; Z90.710 Acquired absence of both cervix and uterus; Z98.51 Tubal ligation status; Z88.5 Allergy status to narcotic agent; Z91.040 Latex allergy status
CPT/HCPCS: 81001; 86308; 87804; 99283; 99284

== ENCOUNTER 2020-10-07 07:15 | Emergency (ER) | payer BC ==
[~2020-10-07] VITALS: Ht 170.2 cm; Wt 110.5 kg
[~2020-10-07 07:15] MED LIST changes: +ONDA4TAB12 PO
--- NOTE | 2020-10-07 07:54 | PHYS DOC ---
Past Medical History Past Medical History: Other Additional Past Medical Histor: fibroids Past Surgical History: Cholecystectomy, , Hysterectomy, Tubal ligation, Other Additional Past Surgical Histo: D&C Smoking Status: Never Smoker Alcohol Use: None Drug Use: None General Adult EDM: Chief Complaint: nausea,vomiting, abdominal pain, fever, chill HPI: HPI: Patient is a 40 year old female who presented to ER due to nausea, vomiting ,abdominal pain, fever and chills since last Tuesday. Patient denied diarrhea. Patient denies any cough or fever. 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 Patient had COVID-19 infection last May. Patient denies any recent travel or operation. Patient felt like she had a stomach flu. Review of Systems: Review of Systems: Constitutional: Positive for fever or chills. [] Eyes: Denies change in visual acuity. [] HENT: Denies nasal congestion or sore throat. [] Respiratory: Denies cough or shortness of breath. [] Cardiovascular: Denies chest pain or edema. [] GI: Positive for abdominal pain, nausea, vomiting, no bloody stools or diarrhea. [] : Denies dysuria. [] Musculoskeletal: Denies back pain or joint pain. [] Integument: Denies rash. [] Neurologic: Denies headache, focal weakness or sensory changes. [] Endocrine: Denies polyuria or polydipsia. [] Lymphatic: Denies swollen glands. [] Psychiatric: Denies depression or anxiety. [] Heart Score: C/O Chest Pain: N/A Risk Factors: Risk Factors: DM, Current or recent (<one month) smoker, HTN, HLP, family history of CAD, obesity. Risk Scores: Score 0 - 3: 2.5% MACE over next 6 weeks - Discharge Home Score 4 - 6: 20.3% MACE over next 6 weeks - Admit for Clinical Observation Score 7 - 10: 72.7% MACE over next 6 weeks - Early Invasive Strategies Allergies: Allergies: Allergies Coded Allergies Type Severity Reaction Last Updated Verified hydrocodone Allergy Intermediate Itching 09/13/17 Yes latex Allergy Intermediate Rash 09/13/17 Yes morphine Adverse Reaction Severe Chest Pain 09/13/17 Yes Physical Exam: PE: Constitutional: Well developed, well nourished, no acute distress, non-toxic appearance. [] HENT: Normocephalic, atraumatic, bilateral external ears normal, oropharynx moist, no oral exudates, nose normal. [] Eyes: PERRLA, EOMI, conjunctiva normal, no discharge. [] Neck: Normal range of motion, no tenderness, supple, no stridor. [] Cardiovascular:Heart rate regular rhythm, no murmur [] Lungs & Thorax: Bilateral breath sounds clear to auscultation [] Abdomen: Bowel sounds normal, soft, There is tenderness to palpation in mid abdominal area, no masses, no pulsatile masses. [] Skin: Warm, dry, no erythema, no rash. [] Back: No tenderness, no CVA tenderness. [] Extremities: No tenderness, no cyanosis, no clubbing, ROM intact, no edema. [] Neurologic: Alert and oriented X 3, normal motor function, normal sensory function, no focal deficits noted. [] Psychologic: Affect normal, judgement normal, mood normal. [] Current Patient Data: Labs: Laboratory Tests Test 10/07/20 07:30 10/07/20 08:14 Urine Collection Type Unknown Urine Color Patrica Urine Clarity Cloudy Urine pH 6.5 Urine Specific Holland >=1.030 Urine Protein 30 mg/dL Urine Glucose (UA) Negative mg/dL Urine Ketones (Stick) Negative mg/dL Urine Blood Negative Urine Nitrite Negative Urine Bilirubin Small Urine Urobilinogen Dipstick 2.0 mg/dL Urine Leukocyte Esterase Small Urine RBC 0 /HPF Urine WBC 5-10 /HPF Urine Squamous Epithelial Cells Many /LPF Urine Bacteria Moderate /HPF Urine Mucus Marked /LPF White Blood Count 7.1 x10^3/uL Red Blood Count 4.53 x10^6/uL Hemoglobin 13.1 g/dL Hematocrit 39.3 % Mean Corpuscular Volume 87 fL Mean Corpuscular Hemoglobin 29 pg Mean Corpuscular Hemoglobin Concent 33 g/dL Red Cell Distribution Width 14.2 % Platelet Count 357 x10^3/uL Neutrophils (%) (Auto) 65 % Lymphocytes (%) (Auto) 25 % Monocytes (%) (Auto) 9 % Eosinophils (%) (Auto) 1 % Basophils (%) (Auto) 1 % Neutrophils # (Auto) 4.6 x10^3/uL Lymphocytes # (Auto) 1.7 x10^3/uL Monocytes # (Auto) 0.6 x10^3/uL Eosinophils # (Auto) 0.1 x10^3/uL Basophils # (Auto) 0.0 x10^3/uL Sodium Level 142 mmol/L Potassium Level 3.4 mmol/L Chloride Level 104 mmol/L Carbon Dioxide Level 29 mmol/L Anion Gap 9 Blood Urea Nitrogen 8 mg/dL Creatinine 0.9 mg/dL Estimated GFR (Cockcroft-Gault) 84.3 BUN/Creatinine Ratio 9 Glucose Level 97 mg/dL Calcium Level 7.8 mg/dL Magnesium Level 2.1 mg/dL Total Bilirubin 0.3 mg/dL Aspartate Amino Transf (AST/SGOT) 19 U/L Alanine Aminotransferase (ALT/SGPT) 26 U/L Alkaline Phosphatase 70 U/L Total Protein 6.9 g/dL Albumin 3.0 g/dL Albumin/Globulin Ratio 0.8 Lipase 64 U/L Current Medications Medications (Trade) Dose Ordered Sig/Bernie Route PRN Reason Start Time Stop Time Status Last Admin Dose Admin Ondansetron HCl (Zofran) 4 mg 1X ONCE IVP 10/07/20 08:00 10/07/20 08:01 DC 10/07/20 08:17 Sodium Chloride 1,000 ml @ 1,000 mls/hr 1X ONCE IV 10/07/20 08:00 10/07/20 08:59 DC 10/07/20 08:17 Iohexol (Omnipaque 300 Mg/ml) 75 ml 1X ONCE IV 10/07/20 09:30 10/07/20 09:31 DC 10/07/20 09:39 Info (CONTRAST GIVEN -- Rx MONITORING) 1 each PRN DAILY PRN MC SEE COMMENTS 10/07/20 09:30 10/09/20 09:29 EKG: EKG: [] Radiology/Procedures: Radiology/Procedures: [facility] [address] [place] [address] IMAGING REPORT Signed PATIENT: JEFFREY TEE ACCOUNT: [id number] : 1980 LOCATION: ER AGE: 40 SEX: F EXAM STATUS: REG ER ORD. PHYSICIAN: WILL DELGADO DO REASON: ABDOMINAL PAIN, NAUSEA AND VOMITING PROCEDURE: CT ABD PELV W/ IV CONTRST ONLY PQRS Compliance Statement: One or more of the following individualized dose reduction techniques were utilized for this examination: 1. Automated exposure control 2. Adjustment of the mA and/or kV according to patient size 3. Use of iterative reconstruction technique CT ABDOMEN+PELVIS W Clinical Indication: Reason: ABDOMINAL PAIN, NAUSEA AND VOMITING Comparison: CT abdomen and pelvis without contrast September 27, 2016. Technique: Helical CT imaging of the abdomen and pelvis is performed after 75 cc of Omnipaque 300 IV contrast. Oral contrast not administered. Findings: There is mild bilateral dependent atelectasis. Calcified granuloma left lower lobe. The cardiac size is normal. Cholecystectomy. The liver, spleen, pancreas, adrenal glands, abdominal aorta, and kidneys are normal. There is no obvious abnormality of the stomach. There is no dilated small bowel. There is no colon wall thickening. The appendix is normal. There is no abdominal adenopathy or free fluid. The ovaries are symmetric. Hysterectomy. Urinary bladder is normal. There is no pelvic free fluid. There is mild degenerative endplate spurring of L3/L4 and L5/S1. IMPRESSION: No acute abdominal or pelvic abnormality. Electronically signed by: Salomon De La Cruz MD (10/07/2020 9:52 AM) [id number] DICTATED and SIGNED BY: SALOMON DE LA CRUZ MD DATE: 10/07/20 [id number] Course & Med Decision Making: Course & Med Decision Making Pertinent Labs and Imaging studies reviewed. (See chart for details) Patient was given IV fluid and nausea medication in the ER, she feel much better. CT scan did not show any acute problem. Patient was discharged in stable condition. Libertad Disclaimer: Libertad Disclaimer: This electronic medical record was generated, in whole or in part, using a voice recognition dictation system. Departure Departure Impression: Primary Impression: Nausea & vomiting Additional Impression: Abdominal pain Disposition: 01 DC HOME SELF CARE/HOMELESS Condition: IMPROVED Referrals: UNKNOWN PCP NAME (PCP) follow up with your doctor as needed this week or Please follow up with [facility] this week. [id number], [address] [place] [address] Phone number: [phone] Patient Instructions: Abdominal Pain (Nonspecific), Nausea and Vomiting WILL DELGADO DO Oct 07, 2020 07:54
[2020-10-07] MEDS ORDERED: ONDANSETRON PF 4 MG/2 ML VIAL. IVP ONE (08:00)
[2020-10-07] MEDS ORDERED: IV NORMAL SALINE 1000ML BAG 1,000 ML IV ONE (08:00)
[2020-10-07 08:01] LABS: BILIRUBIN,URINE SMALL (NEG); CLARITY,URINE CLOUDY; COLOR,URINE AMBER; NITRITE,URINE NEGATIVE (NEG); PH,URINE 6.5 (<5.0-8.0); PROTEIN,URINE 30 mg/dL (NEG-TRACE)
[2020-10-07 08:13] LABS: BACTERIA,URINE MODERATE /HPF (0-FEW); RBC,URINE 0 /HPF (0-2)
[2020-10-07 08:23] LABS: BASO % 1 % (0-3); EOS # 0.1 x10^3/uL (0.0-0.7); EOS % 1 % (0-3); HEMATOCRIT 39.3 % (36.0-47.0); HEMOGLOBIN 13.1 g/dL (12.0-15.5); LYMPH # 1.7 x10^3/uL (1.0-4.8); LYMPH % 25 % (24-48); MEAN CORPUSCULAR HEMOGLOBIN 29 pg (25-35); MEAN CORPUSCULAR HGB CONC 33 g/dL (31-37); MEAN CORPUSCULAR VOLUME 87 fL (79-100); MONO # 0.6 x10^3/uL (0.0-1.1); MONO % 9 % (0-9); NEUT # 4.6 x10^3/uL (1.8-7.7); NEUT % 65 % (31-73); PLATELET COUNT 357 x10^3/uL (140-400); RED BLOOD COUNT 4.53 x10^6/uL (3.50-5.40); RED CELL DISTRIBUTION WIDTH 14.2 % (11.5-14.5); WHITE BLOOD COUNT 7.1 x10^3/uL (4.0-11.0)
[2020-10-07 08:32] LABS: CALCIUM 7.8 mg/dL (8.5-10.1); CREATININE 0.9 mg/dL (0.6-1.0); GFR 84.3; POTASSIUM 3.4 mmol/L (3.5-5.1)
[2020-10-07 08:38] LABS: ALBUMIN/GLOBULIN RATIO 0.8 (1.0-1.7); MAGNESIUM 2.1 mg/dL (1.8-2.4); TOTAL BILIRUBIN 0.3 mg/dL (0.2-1.0); TOTAL PROTEIN 6.9 g/dL (6.4-8.2)
[2020-10-07] MEDS ORDERED: IOHEXOL 300 MG/ML 100ML VIAL. IV ONE (09:30)
[2020-10-07] MEDS ORDERED: CONTRAST GIVEN. MC PRN (09:30)
--- NOTE | 2020-10-07 09:54 | RAD ---
PQRS Compliance Statement: One or more of the following individualized dose reduction techniques were utilized for this examinat ion: 1. Automated exposure control 2. Adjustment of the mA and/or kV according to patient size 3. Use of iterative reconstruction technique CT ABDOMEN+PELVIS W Clinical Indication: Reason: ABDOMINAL PAIN, NAUSEA AND VOMITING Comparison: CT abdomen and pelvis without contrast September 27, 2016. Technique: Helical CT imaging of the abdomen and pelvis is performed after 75 cc of Omnipaque 300 IV contrast. Oral contrast not administered. Findings: There is mild bilateral dependent atelectasis. Calcified granuloma left lower lobe. The cardiac size is normal. Cholecystectomy. The liver, spleen, pancreas, adrenal glands, abdominal aorta, and kidneys are normal . There is no obvious abnormality of the stomach. There is no dilated small bowel. There is no colon wa ll thickening. The appendix is normal. There is no abdominal adenopathy or free fluid. The ovaries are symmetric. Hysterectomy. Urinary bladder is normal. There is no pelvic free fluid. There is mild degenerative endplate spurring of L3/L4 and L5/S1. IMPRESSION: No acute abdominal or pelvic abnormality. Electronically signed by: Salomon De La Cruz MD (10/07/2020 9:52 AM) [id number]
[2020-10-07 10:02] VITALS: BP 121/61
== END 2020-10-07 11:05 | disposition home or self-care (01) ==
LOC: ER 07:15
DX: R11.2 Nausea with vomiting, unspecified (principal); R10.9 Unspecified abdominal pain; R50.9 Fever, unspecified; Z90.49 Acquired absence of other specified parts of digestive tract; Z98.51 Tubal ligation status; Z90.710 Acquired absence of both cervix and uterus; Z88.5 Allergy status to narcotic agent; Z91.040 Latex allergy status
CPT/HCPCS: 36415; 74177; 80053; 81001; 83690; 83735; 85025; 87086; 96361; 96374; 99285; J2405; J7030; Q9967

== ENCOUNTER 2021-06-18 00:53 | Emergency (ER) | payer BC ==
[~2021-06-18] VITALS: Ht 170.2 cm; Wt 109.5 kg
[~2021-06-18 00:53] MED LIST changes: +TIZA-75 PO; -TIZA4TAB2 PO
--- NOTE | 2021-06-18 01:57 | RAD ---
XR CHEST 1V INDICATION: chest pain . COMPARISON STUDY: None. FINDINGS: Lungs: Normal lung volume. No pulmonary mass or consolidation. The tracheobronchial tree and hilar st ructures are normal. Pleura: No pleural effusion or pneumothorax. Heart and Mediastinum: The cardiomediastinal silhouette is normal. The great vessels of the thorax ar e normal. Bones and Soft Tissues: The bones and soft tissues are within normal limits. IMPRESSION: No acute cardiopulmonary process. Electronically signed by: Giuseppe Regalado MD (06/18/2021 1:54 AM) [facility]
[2021-06-18 01:58] LABS: BASO # 0.1 x10^3/uL (0.0-0.2); BASO % 1 % (0-3); EOS # 0.1 x10^3/uL (0.0-0.7); EOS % 1 % (0-3); HEMATOCRIT 38.8 % (36.0-47.0); LYMPH # 2.9 x10^3/uL (1.0-4.8); LYMPH % 28 % (24-48); MEAN CORPUSCULAR HEMOGLOBIN 29 pg (25-35); MEAN CORPUSCULAR HGB CONC 34 g/dL (31-37); MEAN CORPUSCULAR VOLUME 88 fL (79-100); MONO # 0.7 x10^3/uL (0.0-1.1); MONO % 6 % (0-9); NEUT # 6.5 x10^3/uL (1.8-7.7); NEUT % 64 % (31-73); PLATELET COUNT 441 x10^3/uL (140-400); RED BLOOD COUNT 4.43 x10^6/uL (3.50-5.40); RED CELL DISTRIBUTION WIDTH 14.6 % (11.5-14.5); WHITE BLOOD COUNT 10.3 x10^3/uL (4.0-11.0)
[2021-06-18] MEDS ORDERED: ASPIRIN 325 MG TABLET PO ONE (02:00)
[2021-06-18 02:07] LABS: CALCIUM 8.5 mg/dL (8.5-10.1); CREATININE 0.8 mg/dL (0.6-1.0); GFR 96.6; POTASSIUM 3.7 mmol/L (3.5-5.1)
[2021-06-18 02:09] LABS: PARTIAL THROMBOPLASTIN TIME 34 SEC (24-38); PROTHROMBIN TIME PATIENT 13.7 SEC (11.7-14.0)
[2021-06-18 02:13] LABS: ALBUMIN 3.1 g/dL (3.4-5.0); ALBUMIN/GLOBULIN RATIO 0.8 (1.0-1.7); TOTAL BILIRUBIN 0.2 mg/dL (0.2-1.0)
[2021-06-18 02:23] LABS: PREG TEST PT QUAL NEGATIVE (NEG)
[2021-06-18 02:25] LABS: D-DIMER < 0.27 ug/mlFEU (0.00-0.50)
--- NOTE | 2021-06-18 04:53 | PHYS DOC ---
Past Medical History Past Medical History: Anxiety, Other Additional Past Medical Histor: fibroids, CHRONIC THROAT PAIN Past Surgical History: Cholecystectomy, , Hysterectomy, Tubal ligation, Other Additional Past Surgical Histo: D&C Smoking Status: Never Smoker Alcohol Use: None Drug Use: None Adult General Chief Complaint Chief Complaint: ANXIETY/PANIC ATTACK HPI HPI The patient is a 40-year-old female with no significant past medical history and a never smoker. She presents for evaluation of acute on chronic chest pain. Discomfort is nonpleuritic and nonexertional and localizes to the midsternal chest, nonradiating. Nothing seems to bring it on or make it better or make it worse. This episode of discomfort started at around 10 PM and continued while the patient was at work overnight so she called the ambulance to bring her to [facility]. She states she has the same pain more days than not and has for many months now. She has seen her primary doctor but never seen cardiology for this issue. No associated nausea or vomiting, shortness of breath, cold sweats or chills, abdominal pain, flank pain, back pain. Patient is alert and pleasantly appropriately interactive and in no acute distress with completely appropriate vital signs upon initial evaluation here in the emergency department. Triage EKG is nonischemic. Review of Systems Review of Systems A 12 point review of systems was completed and was negative except where noted in HPI above. Current Medications Current Medications Current Medications Medications (Trade) Dose Ordered Sig/Bernie Start Time Stop Time Status Last Admin Dose Admin Aspirin (Rita Aspirin) 325 mg 1X ONCE 06/18/21 02:00 06/18/21 02:01 DC 06/18/21 02:11 325 MG Allergies Allergies Allergies Coded Allergies Type Severity Reaction Last Updated Verified hydrocodone Allergy Intermediate Itching 06/18/21 Yes latex Allergy Intermediate Rash 06/18/21 Yes morphine Adverse Reaction Severe Chest Pain 06/18/21 Yes Physical Exam Physical Exam 40-year-old female appearing nontoxic and in no acute distress. Head is normocephalic and atraumatic. Neck is supple and nontender. Oropharynx is moist. Lungs are clear to auscultation at all stations. There is a normal S1 and S2 without rubs or gallops and capillary refill is appropriate, less than 2 seconds globally. Abdomen is soft, nontender and nondistended. Skin is warm and dry without cyanosis, clubbing or edema. Psychiatrically, the patient demonstrates appropriate mood and affect and is alert. Evaluation of the extr emities reveals BUEs and BLEs neurovascularly intact distally with strength out of 5, sensation intact light touch in all nerve distributions, radial, DP and PT pulses 2+ and equal bilaterally, capillary refill less than 2 seconds, hands and feet warm and well-perfused. No dependent peripheral edema distally. No calf tenderness or swelling bilaterally. Homans test is negative bilaterally Current Patient Data Vital Signs Vital Signs Date Time Temp Pulse Resp B/P (MAP) Pulse Ox O2 Delivery O2 Flow Rate FiO2 06/18/21 02:31 78 22 109/61 (77) 97 Room Air 06/18/21 00:53 98.1 98.1 Lab Values Laboratory Tests Test 06/18/21 01:28 06/18/21 04:00 White Blood Count 10.3 x10^3/uL (4.0-11.0) Red Blood Count 4.43 x10^6/uL (3.50-5.40) Hemoglobin 13.0 g/dL (12.0-15.5) Hematocrit 38.8 % (36.0-47.0) Mean Corpuscular Volume 88 fL (79-100) Mean Corpuscular Hemoglobin 29 pg (25-35) Mean Corpuscular Hemoglobin Concent 34 g/dL (31-37) Red Cell Distribution Width 14.6 % (11.5-14.5) H Platelet Count 441 x10^3/uL (140-400) H Neutrophils (%) (Auto) 64 % (31-73) Lymphocytes (%) (Auto) 28 % (24-48) Monocytes (%) (Auto) 6 % (0-9) Eosinophils (%) (Auto) 1 % (0-3) Basophils (%) (Auto) 1 % (0-3) Neutrophils # (Auto) 6.5 x10^3/uL (1.8-7.7) Lymphocytes # (Auto) 2.9 x10^3/uL (1.0-4.8) Monocytes # (Auto) 0.7 x10^3/uL (0.0-1.1) Eosinophils # (Auto) 0.1 x10^3/uL (0.0-0.7) Basophils # (Auto) 0.1 x10^3/uL (0.0-0.2) Prothrombin Time 13.7 SEC (11.7-14.0) Prothrombin Time INR 1.1 (0.8-1.1) Activated Partial Thromboplast Time 34 SEC (24-38) D-Dimer (Sarah Beth) < 0.27 ug/mlFEU Sodium Level 141 mmol/L (136-145) Potassium Level 3.7 mmol/L (3.5-5.1) Chloride Level 104 mmol/L (98-107) Carbon Dioxide Level 27 mmol/L (21-32) Anion Gap 10 (6-14) Blood Urea Nitrogen 9 mg/dL (7-20) Creatinine 0.8 mg/dL (0.6-1.0) Estimated GFR (Cockcroft-Gault) 96.6 BUN/Creatinine Ratio 11 (6-20) Glucose Level 101 mg/dL (70-99) H Calcium Level 8.5 mg/dL (8.5-10.1) Total Bilirubin 0.2 mg/dL (0.2-1.0) Aspartate Amino Transferase (AST) 16 U/L (15-37) Alanine Aminotransferase (ALT) 27 U/L (14-59) Alkaline Phosphatase 86 U/L (46-116) Troponin I High Sensitivity 5 ng/L (4-50) 5 ng/L (4-50) NG-Arz-H-Type Natriuretic Peptide 20 pg/mL (0-124) Total Protein 7.0 g/dL (6.4-8.2) Albumin 3.1 g/dL (3.4-5.0) L Albumin/Globulin Ratio 0.8 (1.0-1.7) L Serum Test, Qualitative Negative (NEG) Laboratory Tests 06/18/21 01:28 Laboratory Tests 06/18/21 01:28 EKG EKG Sinus rhythm, rate 79, no acute ST elevation or depression, TN 156, QRS 88, QTc 414, EP interpretation. Nonischemic tracing, intervals appropriate. Radiology/Procedures Radiology/Procedures XR CHEST 1V INDICATION: chest pain . COMPARISON STUDY: None. FINDINGS: Lungs: Normal lung volume. No pulmonary mass or consolidation. The tracheobr onchial tree and hilar structures are normal. Pleura: No pleural effusion or pneumothorax. Heart and Mediastinum: The cardiomediastinal silhouette is normal. The great vessels of the thorax are normal. Bones and Soft Tissues: The bones and soft tissues are within normal limits. IMPRESSION: No acute cardiopulmonary process. Electronically signed by: Markel Casey MD (06/18/2021 1:54 AM) [facility] DICTATED and SIGNED BY: MARKEL CASEY MD DATE: 06/18/21 [id number] Course & Med Decision Making Course & Med Decision Making 40-year-old female presenting for atypical chest discomfort, acute on chronic over many months. No evidence of emergency condition is identified by labs or imaging today. Delta troponin negative. Patient resting comfortably in no acute distress on serial reassessments. Endorses resolution of her chest discomfort during her time here in the emergency department. HEART score low ri sk at 0. Wells low risk for PE and D dimer is negative. 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 Will refer to cardiology for close follow-up given chronic chest discomfort over many months. Patient understands that if she feels worse instead of better, has recurrent symptoms of concern or any other new symptoms of concern that she should return to the emergency department right away for reevaluation. All questions are answered. Dragon Disclaimer Dragon Disclaimer This electronic medical record was generated, in whole or in part, using a voice recognition dictation system. Departure Departure Impression: Primary Impression: Other chest pain Disposition: 01 HOME / SELF CARE / HOMELESS Condition: IMPROVED Referrals: KIMBERLEY SUAREZ [facility]- (PCP) CLAUDE WILKINS MD Patient Instructions: Chest Pain (Nonspecific) Additional Instructions: Follow-up very closely with your primary care doctor in the office in the next 2 to 4 days for a reevaluation of your symptoms and to discussion of next best steps in care. We are also referring you to Dr. Wilkins of cardiology so that you may follow-up with him closely in the office in the next few days to discuss your chest pain over the past few months and best next steps. Return to the emergency department right away for worsening symptoms of any kind or with any other new symptoms of concern GIANCARLO SEGUNDO MD Jun 18, 2021 04:53
[2021-06-18 05:31] VITALS: BP 113/58
== END 2021-06-18 06:18 | disposition home or self-care (01) ==
LOC: ER 00:53
DX: R07.2 Precordial pain (principal); F41.9 Anxiety disorder, unspecified; Z88.5 Allergy status to narcotic agent; Z91.040 Latex allergy status
CPT/HCPCS: 36415; 71045; 80053; 83880; 84484; 84703; 85025; 85379; 85610; 85730; 93005; 99285-25

== ENCOUNTER 2021-10-15 07:28 | Emergency (ER) | payer BC ==
[~2021-10-15] VITALS: Ht 172.7 cm; Wt 109.4 kg
--- NOTE | 2021-10-15 07:42 | PHYS DOC ---
Past Medical History Past Medical History: Anxiety, Other Additional Past Medical Histor: fibroids, CHRONIC THROAT PAIN Past Surgical History: Cholecystectomy, , Hysterectomy, Tubal ligation, Other Additional Past Surgical Histo: D&C Smoking Status: Never Smoker Alcohol Use: None Drug Use: None General Adult EDM: Chief Complaint: HEADACHE HPI: HPI: Patient is a 41 year old female presents to the ER with nausea vomiting that started after eating Jo's last night. Patient states that she now has a headache after vomiting. Patient reports having diarrhea and denies any melanotic or dark tarry stools. Patient denies any abdominal pain. Denies fevers or chills Review of Systems: Review of Systems: Constitutional: Denies fever or chills. [] Eyes: Denies change in visual acuity. [] HENT: Denies nasal congestion or sore throat. [] Respiratory: Denies cough or shortness of breath. [] Cardiovascular: Denies chest pain or edema. [] GI: Nausea vomiting diarrhea : Denies dysuria. [] Musculoskeletal: Denies back pain or joint pain. [] Integument: Denies rash. [] Neurologic: Reports headache denies, focal weakness or sensory changes. [] Endocrine: Denies polyuria or polydipsia. [] Lymphatic: Denies swollen glands. [] Psychiatric: Denies depression or anxiety. [] Heart Score: C/O Chest Pain: No Risk Factors: Risk Factors: DM, Current or recent (<one month) smoker, HTN, HLP, family history of CAD, obesity. Risk Scores: Score 0 - 3: 2.5% MACE over next 6 weeks - Discharge Home Score 4 - 6: 20.3% MACE over next 6 weeks - Admit for Clinical Observation Score 7 - 10: 72.7% MACE over next 6 weeks - Early Invasive Strategies Allergies: Allergies: Allergies Coded Allergies Type Severity Reaction Last Updated Verified hydrocodone Allergy Intermediate Itching 06/18/21 Yes latex Allergy Intermediate Rash 06/18/21 Yes morphine Adverse Reaction Severe Chest Pain 06/18/21 Yes Physical Exam: PE: Constitutional: Well developed, well nourished, no acute distress, non-toxic appearance. [] HENT: Normocephalic, atraumatic, bilateral external ears normal, oropharynx moist, no oral exudates, nose normal. [] Eyes: PERRLA, EOMI, conjunctiva normal, no discharge. [] Neck: Normal range of motion, no tenderness, supple, no stridor. [] Cardiovascular:Heart rate regular rhythm, no murmur [] Lungs & Thorax: Bilateral breath sounds clear to auscultation [] Abdomen: Bowel sounds normal, soft, no tenderness, no masses, no pulsatile masses. [] Skin: Warm, dry, no erythema, no rash. [] Back: No tenderness, no CVA tenderness. [] Extremities: No tenderness, no cyanosis, no clubbing, ROM intact, no edema. [] Neurologic: Alert and oriented X 3, normal motor function, normal sensory function, no focal deficits noted. [] Psychologic: Affect normal, judgement normal, mood normal. [] Current Patient Data: Labs: Laboratory Tests Test 10/15/21 07:35 10/15/21 07:38 10/15/21 07:48 Urine Collection Type Unknown Urine Color (Auto) Yellow Urine Turbidity Clear Urine pH (Auto) 6.0 Urine Specific [place] 1.033 Urine Protein (Auto) 30 mg/dL Urine Glucose (Auto)(UA) Negative mg/dL Urine Ketones (Auto) Negative mg/dL Urine Blood (Auto) Negative Urine Nitrite (Auto) Negative Urine Bilirubin (Auto) Negative Urine Urobilinogen (Auto) Normal mg/dL Urine Leukocyte Esterase (Auto) Negative Urine RBC 0 /HPF Urine WBC 5-10 /HPF Urine Squamous Epithelial Cells Mod /LPF Urine Bacteria Few /HPF Urine Mucus Mod /LPF Bedside Urine HCG, Qualitative Hcg negative White Blood Count 7.2 x10^3/uL Red Blood Count 4.77 x10^6/uL Hemoglobin 13.7 g/dL Hematocrit 40.9 % Mean Corpuscular Volume 86 fL Mean Corpuscular Hemoglobin 29 pg Mean Corpuscular Hemoglobin Concent 33 g/dL Red Cell Distribution Width 15.1 % Platelet Count 342 x10^3/uL Neutrophils (%) (Auto) 68 % Lymphocytes (%) (Auto) 25 % Monocytes (%) (Auto) 6 % Eosinophils (%) (Auto) 0 % Basophils (%) (Auto) 1 % Neutrophils # (Auto) 4.9 x10^3/uL Lymphocytes # (Auto) 1.8 x10^3/uL Monocytes # (Auto) 0.4 x10^3/uL Eosinophils # (Auto) 0.0 x10^3/uL Basophils # (Auto) 0.0 x10^3/uL Sodium Level 138 mmol/L Potassium Level 3.0 mmol/L Chloride Level 103 mmol/L Carbon Dioxide Level 26 mmol/L Anion Gap 9 Blood Urea Nitrogen 7 mg/dL Creatinine 1.0 mg/dL Estimated GFR (Cockcroft-Gault) 74.3 BUN/Creatinine Ratio 7 Glucose Level 108 mg/dL Calcium Level 8.2 mg/dL Total Bilirubin 0.5 mg/dL Aspartate Amino Transf (AST/SGOT) 16 U/L Alanine Aminotransferase (ALT/SGPT) 23 U/L Alkaline Phosphatase 60 U/L Total Protein 7.4 g/dL Albumin 3.1 g/dL Albumin/Globulin Ratio 0.7 Lipase 37 U/L Current Medications Medications (Trade) Dose Ordered Sig/Bernie Route PRN Reason Start Time Stop Time Status Last Admin Dose Admin Sodium Chloride 1,000 ml @ 1,000 mls/hr Q1H IV 10/15/21 07:45 10/15/21 08:44 DC 10/15/21 07:50 Ondansetron HCl (Zofran) 4 mg 1X ONCE IVP 10/15/21 07:45 10/15/21 07:46 DC 10/15/21 07:50 Ketorolac Tromethamine (Toradol 30mg Vial) 15 mg 1X ONCE IVP 10/15/21 07:45 10/15/21 07:46 DC 10/15/21 07:51 Potassium Chloride (Klor-Con) 40 meq 1X ONCE PO 10/15/21 08:30 10/15/21 08:31 DC 10/15/21 08:33 Vital Signs: Vital Signs Date Time Temp Pulse Resp B/P (MAP) Pulse Ox O2 Delivery O2 Flow Rate FiO2 10/15/21 07:31 99.6 101 19 126/71 (89) 98 Room Air 99.6 EKG: EKG: [] Radiology/Procedures: Radiology/Procedures: [] Course & Med Decision Making: Course & Med Decision Making Pertinent Labs and Imaging studies reviewed. (See chart for details) [] Patient is feeling much better. Patient resting comfortably and socializing on her cell phone. Return precautions were discussed results were discussed. Libertad Disclaimer: Libertad Disclaimer: This electronic medical record was generated, in whole or in part, using a voice recognition dictation system. Departure Departure Referrals: KIMBERLEY SUAREZ [employer] [facility] (PCP) ONEIDA LONGO DO Oct 15, 2021 07:42
[2021-10-15] MEDS ORDERED: IV NORMAL SALINE 1000ML BAG 1,000 ML IV SCH (07:45)
[2021-10-15] MEDS ORDERED: KETOROLAC 30 MG/ML VIAL. IVP ONE (07:45)
[2021-10-15] MEDS ORDERED: ONDANSETRON PF 4 MG/2 ML VIAL. IVP ONE (07:45)
[2021-10-15 08:03] LABS: BASO % 1 % (0-3); EOS % 0 % (0-3); HEMATOCRIT 40.9 % (36.0-47.0); HEMOGLOBIN 13.7 g/dL (12.0-15.5); LYMPH # 1.8 x10^3/uL (1.0-4.8); LYMPH % 25 % (24-48); MEAN CORPUSCULAR HEMOGLOBIN 29 pg (25-35); MEAN CORPUSCULAR HGB CONC 33 g/dL (31-37); MEAN CORPUSCULAR VOLUME 86 fL (79-100); MONO # 0.4 x10^3/uL (0.0-1.1); MONO % 6 % (0-9); NEUT # 4.9 x10^3/uL (1.8-7.7); NEUT % 68 % (31-73); PLATELET COUNT 342 x10^3/uL (140-400); RED BLOOD COUNT 4.77 x10^6/uL (3.50-5.40); RED CELL DISTRIBUTION WIDTH 15.1 % (11.5-14.5); WHITE BLOOD COUNT 7.2 x10^3/uL (4.0-11.0)
[2021-10-15 08:10] LABS: ALBUMIN 3.1 g/dL (3.4-5.0); ALBUMIN/GLOBULIN RATIO 0.7 (1.0-1.7); CALCIUM 8.2 mg/dL (8.5-10.1); GFR 74.3; TOTAL BILIRUBIN 0.5 mg/dL (0.2-1.0); TOTAL PROTEIN 7.4 g/dL (6.4-8.2)
[2021-10-15 08:29] LABS: BACTERIA,URINE FEW /HPF (0-FEW); RBC,URINE 0 /HPF (0-2)
[2021-10-15] MEDS ORDERED: POTASSIUM CHLORIDE 20 MEQ TABLET.ER. PO ONE (08:30)
[2021-10-15 08:45] VITALS: BP 104/63
[2021-10-15] MEDS ORDERED: ONDA4TAB12 PO (09:07)
[2021-10-15] MEDS ORDERED: IBUP-1007 PO (09:07)
== END 2021-10-15 09:19 | disposition home or self-care (01) ==
LOC: ER 07:28
DX: R11.2 Nausea with vomiting, unspecified (principal); R51.9 Headache, unspecified; G89.29 Other chronic pain; Z91.040 Latex allergy status; Z88.5 Allergy status to narcotic agent
CPT/HCPCS: 36415; 80053; 81001; 81025; 83690; 85025; 96361; 96374; 96375; 99284; J1885; J2405; J7030

== ENCOUNTER 2021-12-01 07:16 | Emergency (ER) | payer BC ==
[~2021-12-01] VITALS: Ht 172.7 cm; Wt 108.8 kg
[~2021-12-01 07:16] MED LIST changes: +IBUP-1007 PO
--- NOTE | 2021-12-01 08:10 | RAD ---
INDICATION: Reason: chest pain with cough / Spl. Instructions: / History: COMPARISON: June 2021 FINDINGS: 2 view of chest obtained. No definite focal airspace consolidation or edema. Cardiac silhouette is unremarkable. Degenerative changes of the spine IMPRESSION: * No focal airspace consolidation or edema. Electronically signed by: Sony Yañez MD (12/01/2021 8:07 AM) [id number]
[2021-12-01 08:13] LABS: CALCIUM 8.4 mg/dL (8.5-10.1); CREATININE 0.9 mg/dL (0.6-1.0); GFR 83.9; POTASSIUM 3.7 mmol/L (3.5-5.1)
[2021-12-01 08:19] LABS: ALBUMIN 2.8 g/dL (3.4-5.0); ALBUMIN/GLOBULIN RATIO 0.6 (1.0-1.7); TOTAL BILIRUBIN 0.3 mg/dL (0.2-1.0); TOTAL PROTEIN 7.2 g/dL (6.4-8.2)
[2021-12-01 08:20] LABS: BASO # 0.1 x10^3/uL (0.0-0.2); BASO % 1 % (0-3); EOS # 0.1 x10^3/uL (0.0-0.7); EOS % 2 % (0-3); HEMATOCRIT 35.8 % (36.0-47.0); LYMPH # 2.8 x10^3/uL (1.0-4.8); LYMPH % 34 % (24-48); MEAN CORPUSCULAR HEMOGLOBIN 29 pg (25-35); MEAN CORPUSCULAR HGB CONC 33 g/dL (31-37); MEAN CORPUSCULAR VOLUME 86 fL (79-100); MONO # 0.5 x10^3/uL (0.0-1.1); MONO % 7 % (0-9); NEUT # 4.7 x10^3/uL (1.8-7.7); NEUT % 57 % (31-73); PLATELET COUNT 337 x10^3/uL (140-400); RED BLOOD COUNT 4.17 x10^6/uL (3.50-5.40); RED CELL DISTRIBUTION WIDTH 15.3 % (11.5-14.5); WHITE BLOOD COUNT 8.2 x10^3/uL (4.0-11.0)
--- NOTE | 2021-12-01 08:44 | EKG ---
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
[2021-12-01] MEDS ORDERED: BENZ-8 PO (08:58)
--- NOTE | 2021-12-01 08:58 | PHYS DOC ---
Past Medical History Past Medical History: Anxiety, Other Additional Past Medical Histor: fibroids, CHRONIC THROAT PAIN Past Surgical History: Cholecystectomy, , Hysterectomy, Tonsillectomy, Tubal ligation, Other Additional Past Surgical Histo: D&C,ADENOIDECTOMY Smoking Status: Never Smoker Alcohol Use: None Drug Use: None General Adult EDM: Chief Complaint: COUGH HPI: HPI: Patient is a 41 year old female who presents with 9 months of cough. Patient denies past medical history. Patient says she has seen her primary doctor for this multiple times as well as ENT and no one has been able to explain to her why she continues to cough. Patient presents complaining of anterior chest pains, associated with coughing, nonradiating, constant, worse at night when she lays down to go to sleep. Patient denies fevers, chills, nausea vomiting or diarrhea. Patient's cough is dry and nonproductive. Review of Systems: Review of Systems: Constitutional: Denies fever or chills. [] Eyes: Denies change in visual acuity. [] HENT: Denies nasal congestion or sore throat. [] Respiratory: cough, denies shortness of breath. [] Cardiovascular: chest pain, denies edema. [] GI: Denies abdominal pain, nausea, vomiting, bloody stools or diarrhea. [] : Denies dysuria. [] Musculoskeletal: Denies back pain or joint pain. [] Integument: Denies rash. [] Neurologic: Denies headache, focal weakness or sensory changes. [] Endocrine: Denies polyuria or polydipsia. [] Lymphatic: Denies swollen glands. [] Psychiatric: Denies depression or anxiety. [] Heart Score: C/O Chest Pain: Yes HEART Score for Chest Pain: HEART Score for Chest Pain Response (Comments) Value History Slighlty/Non-Suspicious 0 ECG Normal 0 Age < 45 0 Risk Factors No Risk Factors 0 Troponin < Normal Limit 0 Total 0 Risk Factors: Risk Factors: DM, Current or recent (<one month) smoker, HTN, HLP, family history of CAD, obesity. Risk Scores: Score 0 - 3: 2.5% MACE over next 6 weeks - Discharge Home Score 4 - 6: 20.3% MACE over next 6 weeks - Admit for Clinical Observation Score 7 - 10: 72.7% MACE over next 6 weeks - Early Invasive Strategies Allergies: Allergies: Allergies Coded Allergies Type Severity Reaction Last Updated Verified hydrocodone Allergy Intermediate Itching 06/18/21 Yes latex Allergy Intermediate Rash 06/18/21 Yes morphine Adverse Reaction Severe Chest Pain 06/18/21 Yes Physical Exam: PE: Constitutional: Well developed, well nourished, no acute distress, non-toxic appearance. [] HENT: Normocephalic, atraumatic, bilateral external ears normal, oropharynx moist, no oral exudates, nose normal. [] Eyes: PERRLA, EOMI, conjunctiva normal, no discharge. [] Neck: Normal range of motion, no tenderness, supple, no stridor. [] Cardiovascular:Heart rate regular rhythm, no murmur [] Lungs & Thorax: Bilateral breath sounds clear to auscultation [] Abdomen: Bowel sounds normal, soft, no tenderness, no masses, no pulsatile masses. [] Skin: Warm, dry, no erythema, no rash. [] Back: No tenderness, no CVA tenderness. [] Extremities: No tenderness, no cyanosis, no clubbing, ROM intact, no edema. [] Neurologic: Alert and oriented X 3, normal motor function, normal sensory function, no focal deficits noted. [] Psychologic: Affect normal, judgement normal, mood normal. [] Current Patient Data: Labs: Laboratory Tests Test 12/01/21 07:55 White Blood Count 8.2 x10^3/uL (4.0-11.0) Red Blood Count 4.17 x10^6/uL (3.50-5.40) Hemoglobin 12.0 g/dL (12.0-15.5) Hematocrit 35.8 % (36.0-47.0) L Mean Corpuscular Volume 86 fL (79-100) Mean Corpuscular Hemoglobin 29 pg (25-35) Mean Corpuscular Hemoglobin Concent 33 g/dL (31-37) Red Cell Distribution Width 15.3 % (11.5-14.5) H Platelet Count 337 x10^3/uL (140-400) Neutrophils (%) (Auto) 57 % (31-73) Lymphocytes (%) (Auto) 34 % (24-48) Monocytes (%) (Auto) 7 % (0-9) Eosinophils (%) (Auto) 2 % (0-3) Basophils (%) (Auto) 1 % (0-3) Neutrophils # (Auto) 4.7 x10^3/uL (1.8-7.7) Lymphocytes # (Auto) 2.8 x10^3/uL (1.0-4.8) Monocytes # (Auto) 0.5 x10^3/uL (0.0-1.1) Eosinophils # (Auto) 0.1 x10^3/uL (0.0-0.7) Basophils # (Auto) 0.1 x10^3/uL (0.0-0.2) D-Dimer (Sarah Beth) 0.41 ug/mlFEU (0.00-0.50) Sodium Level 142 mmol/L (136-145) Potassium Level 3.7 mmol/L (3.5-5.1) Chloride Level 107 mmol/L (98-107) Carbon Dioxide Level 26 mmol/L (21-32) Anion Gap 9 (6-14) Blood Urea Nitrogen 11 mg/dL (7-20) Creatinine 0.9 mg/dL (0.6-1.0) Estimated GFR (Cockcroft-Gault) 83.9 BUN/Creatinine Ratio 12 (6-20) Glucose Level 101 mg/dL (70-99) H Calcium Level 8.4 mg/dL (8.5-10.1) L Total Bilirubin 0.3 mg/dL (0.2-1.0) Aspartate Amino Transferase (AST) 15 U/L (15-37) Alanine Aminotransferase (ALT) 25 U/L (14-59) Alkaline Phosphatase 75 U/L (46-116) Troponin I High Sensitivity 6 ng/L (4-50) NM-Rxm-N-Type Natriuretic Peptide 47 pg/mL (0-124) Total Protein 7.2 g/dL (6.4-8.2) Albumin 2.8 g/dL (3.4-5.0) L Albumin/Globulin Ratio 0.6 (1.0-1.7) L Laboratory Tests 12/01/21 07:55 Laboratory Tests 12/01/21 07:55 Vital Signs: Vital Signs Date Time Temp Pulse Resp B/P (MAP) Pulse Ox O2 Delivery O2 Flow Rate FiO2 12/01/21 07:19 98.4 79 18 117/61 (79) 98 Room Air 98.4 EKG: EKG: EKG done at 0747, normal sinus rhythm at a rate of 73, normal axis, normal intervals, no ischemic changes Radiology/Procedures: Radiology/Procedures: 2 view chest x-ray Impression: Normal chest x-ray, no focal opacities, large effusions, pneumothorax, wide mediastinum Course & Med Decision Making: Course & Med Decision Making Pertinent Labs and Imaging studies reviewed. (See chart for details) Patient with chronic cough, unlikely to be infectious or related to an acute pathology, patient frustrated with the lack of improvement after seeing her doctor and specialist. We will check basic labs including cardiac enzymes, D- dimer, chest x-ray and EKG to rule out acute coronary syndrome, pulmonary embolism, infection. Based on symptoms and increased at night when she is laying down possible postnasal drip. Work-up in the emergency department negative for acute finding, will prescribe decongestants to treat possible postnasal drip and recommend she follow-up again with ENT to discuss this possible diagnosis. Libertad Disclaimer: Libertad Disclaimer: This electronic medical record was generated, in whole or in part, using a voice recognition dictation system. 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
[2021-12-01 09:13] VITALS: BP 116/64
== END 2021-12-01 09:17 | disposition home or self-care (01) ==
LOC: ER 07:16
DX: R05.9 Cough, unspecified (principal); R07.89 Other chest pain; Z91.040 Latex allergy status; Z88.5 Allergy status to narcotic agent
CPT/HCPCS: 36415; 71046; 80053; 83880; 84484; 85025; 85379; 93005; 99285-25